=== PATIENT | male | born 1985 | race Caucasian/White ===

== ENCOUNTER 2023-03-28 07:50 | Outpatient (OUT) | payer MEDICAID, SELFPAY ==
[2023-03-28 08:57] LABS: Microalbumin Urine Random 36.3 mg/dL (<=30.0)
[2023-03-28 10:42] LABS: Albumin Level 3.6 g/dL (3.4-5.0); Anion Gap 10.9; BUN Creatinine Ratio 16.8; Calcium 9.3 mg/dL (8.5-10.1); Carbon Dioxide 26.9 mmol/L (21.0-32.0); Chloride 104 mmol/L (98-107); Chol HDL Ratio 6.1; Cholesterol 207 mg/dL (<=200); Estimated GFR (African America >60 (>=60); Estimated GFR (Non-African Ame >60 (>=60); Glucose 126 mg/dL (74-106); HDL Cholesterol 34 mg/dL (40-60); Phosphorus 3.9 mg/dL (2.6-4.7); Potassium 3.8 mmol/L (3.5-5.1); Sodium 138 mmol/L (136-145); Triglycerides 286 mg/dL (<=150); VLDL CHOLESTEROL 57.2 mg/dL
== END 2023-03-28 07:51 | disposition home or self-care (01) ==
LOC: LAB 07:54
PROVIDERS: PCP Family Medicine; Visit Provider Internal Medicine
DX: E11.65 Type 2 diabetes mellitus with hyperglycemia (principal); Z71.3 Dietary counseling and surveillance; E55.9 Vitamin D deficiency, unspecified; I10 Essential (primary) hypertension
CPT/HCPCS: 36415; 80061; 80069; 82043; 82306; 82570; 84681

== ENCOUNTER 2023-08-21 19:29 | Emergency (ER) | payer MEDICAID, SELFPAY ==
[2023-08-21 19:55] VITALS: BP 160/90; PULSE 72; RESP 18; TEMP 36.6; O2SAT 98; BMI 39.6
--- NOTE | 2023-08-21 20:34 | XR_ITS ---
The [address] [address] Patient Name: BLAKE CARDONA MRN: [id number] date: 1985 Sex: M Assigned Patient Location: ER Current Patient Location: ER Accession/Order Number: [id number] Exam Date: 08/21/2023 20:48 Report Date: 08/21/2023 21:20 At the request of: JONO PICKETT Procedure: XR foot LT min 3V EXAM: XR foot LT min 3V HISTORY: foot pain COMPARISON: None. TECHNIQUE: 3 views of the left foot FINDINGS: No acute fracture seen. Joint alignment is normal. Joint spaces are preserved. Soft tissues appear unremarkable. Posterior and plantar calcaneal spur is seen. XR/XR foot LT min 3V IMPRESSION: No acute fracture or malalignment. Electronically authenticated by: MAURIZIO CHAUDHRY Date: 08/21/2023 21:20
--- NOTE | 2023-08-21 21:33 | ED_ITS ---
HPI - General Adult General Chief complaint: Extremity Injury, Lower Stated complaint: Lower Extremity Pain Time Seen by Provider: 08/21/23 19:39 Source: patient Mode of arrival: walk-in Limitations: no limitations History of Present Illness HPI narrative: Patient is a 37-year-old male who presents to the emergency department for left foot pain. He states that has been present for several weeks although he admits he has had intermittent left foot pain for 10 years. He has never been seen by a gas controller. He has had no swelling, redness or injury to the left foot. He is currently wearing cowboy boots to ambulate. He states he came to the emergency department tonight because he is tired of it hurting . Related Data Previous Rx's Medication Instructions Recorded tramadol 50 mg tablet 50 mg PO Q4H PRN pain #15 tabs 08/21/23 Allergies Allergy/AdvReac Type Severity Reaction Status Date / Time methocarbamol [From Robaxin] Allergy Intermediate Verified 08/21/23 20:01 chlorhexidine Allergy Mild Verified 08/21/23 20:01 [From Hibiclens] Review of Systems ROS Constitutional Denies: fever or chills Ears, nose, mouth, and throat Denies: throat pain or neck pain Cardiovascular Denies: chest pain Respiratory Denies: shortness of breath or cough Gastrointestinal Denies: nausea or vomiting Musculoskeletal Denies: back pain Integumentary/Breast Denies: rash Neurological Denies: headache Psychiatric Denies: anxiety [facility] Social History Smoking status: Never smoker Exam Narrative Exam Narrative: Gen.: Awake, alert, in no distress Head: Normocephalic, atraumatic ENT: Moist mucous membranes Respiratory: No respiratory distress Extremities: Moves extremities equally, left foot is noted to have a 2+ left DP pulse. No swelling, erythema, ecchymosis or obvious deformity noted of the left foot. No bony point tenderness. Patient with no red or swollen joints. No bony tenderness of the left ankle. Left foot is diffusely tender at the first MTP joint of the plantar foot as well as the dorsum of the left fourth MTP joint. Psych: Normal mood and affect Neuro: No focal neuro deficit Skin: Warm, dry, intact Constitutional Vital Signs, click to edit/add: Last Vital Signs Temp 97.8 F 08/21/23 19:55 Pulse 72 08/21/23 19:55 Resp 18 08/21/23 19:55 BP 160/90 H 08/21/23 19:55 Pulse Ox 98 08/21/23 19:55 O2 Del Method Room Air 08/21/23 19:55 Course Vital Signs Vital signs: Vital Signs Temperature 97.8 F 08/21/23 19:55 Pulse Rate 72 08/21/23 19:55 Respiratory Rate 18 08/21/23 19:55 Blood Pressure 160/90 H 08/21/23 19:55 Pulse Oximetry 98 08/21/23 19:55 Oxygen Delivery Method Room Air 08/21/23 19:55 Temperature 97.8 F 08/21/23 19:55 Pulse Rate 72 08/21/23 19:55 Respiratory Rate 18 08/21/23 19:55 Blood Pressure 160/90 H 08/21/23 19:55 Pulse Oximetry 98 08/21/23 19:55 Oxygen Delivery Method Room Air 08/21/23 19:55 Medical Decision Making MDM Narrative Medical decision making narrative: Suspect plantar fasciitis versus improper shoes with the patient's arch. X-rays are unremarkable. Patient with no clinical findings concerning for gout or cellulitis. He has a history of kidney issues and diabetes, we will avoid NSAIDs and steroids and the patient is given tramadol for comfort at home with Bradley in the ER. He is strongly encouraged to follow-up with podiatry due to the limitations of the emergency department for further evaluation and treatment. Return to the ER if symptoms change or worsen. Medical Records Medical records reviewed: Yes I reviewed the patient's medical records Imaging Data XR foot left: Attestation: I have reviewed the pertinent imaging results. Discharge Plan Discharge Chief Complaint: Extremity Injury, Lower Clinical Impression: Acute pain of left foot Patient Disposition: Home, Self-Care Time of Disposition Decision: 21:29 Condition: Good Prescriptions / Home Meds: New tramadol 50 mg tablet 50 mg PO Q4H PRN (Reason: pain) Qty: 15 0RF Rx Instructions: DX: M79.672 Instructions: Arthralgia (ED) Stand Alone Forms: Portal Instructions Referrals: Physician,Non-Staff, MD [Primary Care Provider] - 1 week Shaq Santana DPM [Physician] - As soon as possible Discharge Date/Time: 08/21/23 21:54
[2023-08-21] MEDS: HYDROCODONE/ACET 5-325 MG TABLET 1 TAB PO (21:52)
== END 2023-08-21 21:54 | disposition home or self-care (01) ==
PROVIDERS: Emergency Provider Emergency Medicine
DX: M79.672 Pain in left foot (principal)
CPT/HCPCS: 73630; 80048; 84550; 85652; 86140; 99283

== ENCOUNTER 2023-08-28 09:51 | Outpatient (OUT) | payer MEDICAID, SELFPAY ==
--- NOTE | 2023-08-28 | XR_ITS ---
The [address] [address] Patient Name: BLAKE CARDONA MRN: [id number] date: 1985 Sex: M Assigned Patient Location: [facility] Current Patient Location: Accession/Order Number: [id number] Exam Date: 08/28/2023 10:10 Report Date: 08/29/2023 22:31 At the request of: MARIA DEL ROSARIO SANCHEZ Procedure: XR foot LT min 3V EXAM: XR foot LT min 3V HISTORY: The patient is a 38-year-old male with LEFT FOOT PAIN COMPARISON: 08/21/2023. FINDINGS: The current oblique view demonstrates a periosteal reaction arising from the lateral cortex of the distal half of the diaphysis of the third metatarsal. This has the appearance of a stress reaction. No other periosteal reactions are seen throughout the rest of the left foot. No acute or ununited fractures are seen. The widths and alignment of all the joints are maintained. XR/XR foot LT min 3V IMPRESSION: Stress reaction of the third metatarsal. Electronically authenticated by: ASHLYN PARKS Date: 08/29/2023 22:31
== END 2023-08-28 09:52 | disposition home or self-care (01) ==
LOC: RAD 09:51
PROVIDERS: Visit Provider Podiatrist Foot & Ankle Surgery
DX: M79.672 Pain in left foot (principal)
CPT/HCPCS: 73630

== ENCOUNTER 2023-09-20 08:50 | Outpatient (OUT) | payer MEDICAID, SELFPAY ==
--- NOTE | 2023-09-20 08:51 | VEIN_ITS ---
Patient Name: BLAKE CARDONA MR#: [id number] : 1985 Exam Date: 09/20/2023 Ordering Doctor: DR. MARIA DEL ROSARIO SidhuPVijay RADIOLOGY REPORT PROCEDURE: [facility] - OFFICE VISIT INITIAL COMPARISON: None. PROGRESS NOTES: 38-year-old female who presents with 10 year history of lower extremity pain swelling and varicose veins, significantly increasing last several years. Patient's symptoms are worse on the right. 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 The patient's symptoms are partially relieved by rest, leg elevation, the counter oral analgesics and compression stockings which she has worn for many years. The patient's rib for by Dr. Santana where he was seen for foot pain and arthritis. The patient denies any signs and symptoms to suggest arterial ischemia. The patient has had 2 episodes of hemorrhage related to varicose veins close to the skin surface. He was able to obtain hemostasis with manual pressure during both episodes with some difficulty. The patient describes a family history significant for cancer in his father. Type 2 diabetes and heart disease in his mother. Patient occasionally uses social alcohol. The patient has never smoked. No illicit drug use. Medical history significant for type 2 diabetes, hypertension, varicose veins and 3rd degree treadwell as a child. Past surgery for appendectomy and skin grafts. No history of deep venous thrombus or pulmonary embolus. See separate history and physical for medication list. Nursing notes were reviewed. After history and physical exam I discussed at length the pathophysiology of venous hypertension and possible treatments, therapies and strategies available. We discussed at length the importance of elevating the lower extremities above the level of the heart, increased physical activity and compression stocking use. We discussed surgical interventions including ligation and stripping and phlebectomy. We discussed conservative treatment with compression stockings. We discussed intravenous laser ablation, micro foam chemical ablation and injection sclerotherapy at length. Risks benefits and alternatives were discussed. The patient's questions were answered. Ultrasound venous reflux study performed the same day was discussed at length with the patient. The report demonstrates moderate bilateral great saphenous vein venous insufficiency. Moderate right anterior accessory saphenous vein venous insufficiency. Mild left small saphenous vein venous insufficiency. Bilateral incompetent perforating veins. Bilateral incompetent varicose veins PHYSICAL EXAM: The right leg demonstrates severe varicose reticular and spider veins. Two areas of scabbing are noted along the medial left ankle related to his hemorrhagic veins. Mild to moderate hemosiderin staining. The left leg demonstrates moderate varicose, reticular and spider veins. Mild to moderate hemosiderin staining. No active ulceration. Both thighs, legs and feet were symmetrically warm to the touch. Good posterior tibial and dorsalis pedis pulses were present bilaterally. VEIN/VC Facility EST Comprehensive IMPRESSION: 1. Bilateral great saphenous and right anterior accessory saphenous vein venous insufficiency with dilatation and saphenofemoral junction reflux 2. Severe right and moderate left lower extremity incompetent varicose veins 3. Mild lower extremity subcutaneous edema 4. And flow significant arterial disease 5. CEAP: C4a, Ep, Asp, Pr PLAN: 1. Endovenous laser ablation right great saphenous vein followed by left great saphenous vein followed by right anterior accessory saphenous vein 2. Bilateral micro foam chemical ablation of incompetent varicose veins 3. Injection sclerotherapy of reticular and spider veins 4. Long-term use of bilateral knee or thigh-high 20 30 mm compression stockings 5. Continued exercise for symptomatic control Nurse notes, history and physical were reviewed and confirmed, see attached forms. The nurse was present throughout the physical exam and consultation Dictated by: Patrick Gresham MD on 09/20/2023 at 13:09 Approved by: Patrick Gresham MD on 09/20/2023 at 13:15
--- NOTE | 2023-09-20 08:51 | VEIN_ITS ---
Patient Name: BLAKE CARDONA MR#: [id number] : 1985 Exam Date: 09/20/2023 Ordering Doctor: DR. MARIA DEL ROSARIO SidhuPVijay RADIOLOGY REPORT PROCEDURE: VC EXT VENOUS REFLUX JONATHON LMTD COMPARISON: None. INDICATIONS: I83.813 Bilateral painful varicose veins TECHNIQUE: Duplex imaging of the lower extremity to assess the deep and superficial venous system for the presence of deep or superficial venous incompetence and to document the location and severity of disease. The study includes evaluation of the great saphenous vein (GSV), anterior accessory saphenous vein (AASV) and small saphenous vein (SSV). Patient scanned in reverse Trendelenburg and standing. FINDINGS: RIGHT LOWER EXTREMITY: Saphenofemoral Junction Reflux: Yes 9.9mm 2.8 sec GSV: Diam (mm) Reflux/ Time (sec) Proximal Thigh 6.7 Yes 1.8 Mid Thigh 3.5 Yes 2.3 Distal Thigh 4.4 Yes 1.2 Prox Calf 2.4 Yes 1.1 Mid Calf 5.2 Yes 0.6 Saphenopopliteal Junction Reflux: 1.1mm N/A SSV: Proximal Calf 0.9 Mid Calf 1.3 AASV: Proximal Thigh 8.3 Yes 1.8 Mid Thigh 6.1 Yes 1.4 Distal Thigh Thrombi: No acute or chronic thrombus visualized Compressibility: Normal Flow: Normal Preforator: Dist/med calf 3.7mm with 0.6s reflux. Mid/med calf 3.1mm with 1.1s reflux. Tech Note: Incompetent GSV and AASV. Patent varicose vein prox/med calf 5.6mm with 1.0s reflux. Patent varicose vein dist/med calf 6.7mm with 1.5s reflux. Patent varicose vein mid/med thigh 11.6mm with 2.2s reflux. LEFT LOWER EXTREMITY: Saphenofemoral Junction Reflux: Yes 11.6 mm 1.8 sec GSV: Diam (mm) Reflux/Time (sec) Proximal Thigh 8.3 Yes 1.2 Mid Thigh 5.7 Yes 2.2 Distal Thigh 5.2 Yes 0.9 Prox Calf 3.3 Yes 0.8 Mid Calf 2.0 No Saphenopopliteal Junction Relux: 2.4 mm No SSV: Proximal Calf 2.0 Yes 0.7 Mid Calf 1.6 No AASV: Not present Thrombi: No acute or chronic thrombus visualized Compressibility: Normal Flow: Normal Resume Writer: Dist/med calf 4.5mm with 1.2s reflux. Tech Note: Incompetent GSV. Patent varicose vein mid/med calf 3.1mm with 0.8s reflux. Patent varicose vein mid/med thigh 3.1mm with 0s reflux. Patent varicose vein prox/med thigh 4.6mm with 2.1s reflux. CONCLUSION: 1. Moderate bilateral great saphenous vein venous insufficiency with dilatation and saphenofemoral junction reflux 2. Moderate right anterior accessory saphenous vein venous insufficiency 3. Mild venous insufficiency left small saphenous vein without dilatation 4. Bilateral incompetent varicose veins 5. Bilateral incompetent perforating veins Dictated by: Patrick Gresham MD on 09/20/2023 at 09:56 Approved by: Patrick Gresham MD on 09/20/2023 at 09:57
--- OUTSIDE RECORDS SUMMARY | 2023-09-20 09:10 | XMS_ITS | CCD ---
Author Name Unknown Address [address] [place] [address] Organization [facility] Care Team Providers Care Consulting Solution Manager Name Role Phone HOUSE, DR SKAGGS Primary Care Unavailable GABI WEBB Attending Unavailable GABI WEBB Consulting Unavailable GABI WEBB Admitting Unavailable Allergies Allergy Classification Reported Allergen(s) Allergy Type Date of Onset Reaction(s) Facility (1 source) Chlorhexidine Drug Allergy [facility] (1 source) Methocarbamol Drug Allergy [facility] [place] [facility] Problems Problem Classification Problem Date Documented Da te Episodic/Chronic Diabetes mellitus with complications (4 sources) Type 2 diabetes mellitus with hyperglycemia; Translations: [TYPE 2 DM W/HYPERGLYCEMIA] Onset: 10-01-2022 Chronic Essential hypertension (1 source) Essential (primary) hypertension; Translations: [ESSENTIAL PRIMARY HYPERTENSION] Onset: 11-05-2022 Chronic Nutritional deficiencies (1 source) Vitamin D deficiency, unspecified; Translations: [VITAMIN D DEFICIENCY UNSPECIFIED] Onset: 11-05-2022 Chronic Results Test Name Value Interpretation Reference Range Facil ity C-PEPTIDE, SERUMon 3 C-Peptide, Serum 3.6 ng/mL Normal 1.1-4.[address] [facility] Comment on above: Result Comment: C-Pe ptide reference interval is for fasting patients. Performed By: #### C PEPT #### [facility] [address] [place], [place] [address] Dr. Fátima Keller DIRECT LDLon 10-01-2022 Cholesterol in LDL [Mass/Vol] 98 mg/dL Normal [facility] [place] [facility] Comment on above: Performed By: #### L IPID, DLDL, TSH, RENAL #### [facility] [address] [place], [place] [address] Dr. Fátima Keller DLDL NORMAL SEE BELOW Normal [facility] [place] [facility] Comment on above: Result Comment: <100 mg/dl OPTIMAL 100 - 129 mg/dl NEAR OR ABOVE OPTIMAL 130 - 159 mg/dl BORDERLINE HIGH 160 - 189 mg/dl HIGH >190 mg/dl VERY HIGH Performed By: #### L IPID, DLDL, TSH, RENAL #### [facility] [address] [place] [address] [address] Fátima Keller LIPID PROFILEon 10-01-2022 CHOL-HDL RATIO NORM SEE BELOW Normal [facility] Comment on above: Result Comment: 3.3 - 4.4 LOW RISK 4.4 - 7.1 AVERAGE RISK 7.1 - 11.0 MODERATE RISK >11.0 HIGH RISK Performed By: #### L IPID, DLDL, TSH, RENAL #### [facility] [address] [place] [address] [address] Fátima Keller Cholesterol [Mass/Vol] 320 mg/dL Critically high <=200 [facility] Comment on above: Performed By: #### L IPID, DLDL, TSH, RENAL #### [facility] [address] [place] [address] [address] Fátima Keller Cholesterol in HDL [Mass/Vol] 38 mg/dL Critically low 40-60 [facility] Comment on above: Performed By: #### L IPID, DLDL, TSH, RENAL #### [facility] [address] [place] [address] [address] Fátima Keller Cholesterol in LDL [Mass/Vol] 51.8 mg/dL Normal [facility] Comment on above: Performed By: #### L IPID, DLDL, TSH, RENAL #### [facility] [address] [place] [address] [address] Fátima Keller Cholesterol.total/ Cholesterol in HDL [Mass ratio] 8.4 {ratio} Normal [facility] Comment on above: Performed By: #### L IPID, DLDL, TSH, RENAL #### [facility] [address] [place] [address] [address] Fátima Keller HDL NORMAL > or = 60 mg/dl - LO W CARDIOVASCULAR RISK <40 mg/dl - HIGH CARDIOVASCULAR RISK Normal [facility] Comment on above: Performed By: #### L IPID, DLDL, TSH, RENAL #### [facility] [address] [place] [address] [address] Fátima Keller LDL CALC NORMAL SEE BELOW Normal [facility] Comment on above: Result Comment: <100 mg/dl OPTIMAL 100 - 129 mg/dl NEAR OR ABOVE OPTIMAL 130 - 159 mg/dl BORDERLINE HIGH 160 - 189 mg/dl HIGH >190 mg/dl VERY HIGH Performed By: #### L IPID, DLDL, TSH, RENAL #### [facility] [address] [place] [address] [address] Fátima Keller Triglyceride [Mass/Vol] 1151 mg/dL Critically high <=150 [facility] Comment on above: Performed By: #### L IPID, DLDL, TSH, RENAL #### [facility] [address] [place] [address] Dr. Fátima Keller VLDL CALC 230.2 mg/dL Normal [facility] [place] [facility] Comment on above: Performed By: #### L IPID, DLDL, TSH, RENAL #### [facility] [address] [place] [address] Dr. Fátima Keller MICROALB CREAT RATIO RANDOMo n 10-01-2022 mALB 32.2 mg/L Critically high <=30.0 [facility] Comment on above: Performed By: #### M CRR #### [facility] [address] [place] [address] Dr. Fátima Keller MALB CR RATIO 794.5 mg/g Critically high 0.0-29.9 [facility] Comment on above: Performed By: #### M CRR #### [facility] [address] [place] [address] [address] Fátima Keller MALB CR RATIO RANGE SEE BELOW Normal [facility] Comment on above: Result Comment: NO M ICROALBUMINURIA 0-29 MG/G CLINICAL MICROALBUMINURIA 30-300 MG/G MACROALBUMINURIA >300 MG/G Performed By: #### M CRR #### [facility] [address] [place] [address] [address] Fátima Keller URINE CREAT 40.53 mg/dL Normal 20.00-300.00 [facility] Comment on above: Performed By: #### M CRR #### [facility] [address] [place] [address] [address] Fátima Keller RENAL FUNCTION PANELon 10-01 Albumin [Mass/Vol] 3.2 g/dL Critically low 3.4-5.0 Th [facility] Comment on above: Performed By: #### L IPID, DLDL, TSH, RENAL #### [facility] [address] [place] [address] [address] Fátima Keller Calcium [Mass/Vol] 9.5 mg/dL Normal 8.5-10.1 [facility] Comment on above: Performed By: #### L IPID, DLDL, TSH, RENAL #### [facility] [address] [place] [address] Dr. Fátima Keller Chloride [Moles/Vol] 99 mmol/L Normal 98-107 [facility] Comment on above: Performed By: #### L IPID, DLDL, TSH, RENAL #### [facility] [address] [place] [address] [address] Fátima Keller CO2 [Moles/Vol] 24.6 mmol/L Normal 21.0-32.0 [facility] [place] [facility] Comment on above: Performed By: #### L IPID, DLDL, TSH, RENAL #### [facility] [address] [place] [address] Dr. Fátima Keller Creatinine [Mass/Vol] 0.86 mg/dL Normal 0.70-1.30 [facility] Comment on above: Performed By: #### L IPID, DLDL, TSH, RENAL #### [facility] [address] [place] [address] [address] Fátima Keller EGFR-AF ALGERIAN >60 Normal >=[address] [facility] Comment on above: Performed By: #### L IPID, DLDL, TSH, RENAL #### [facility] [address] [place] [address] [address] Fátima Keller EGFR-NON AF ALGERIAN >60 Normal >=60 [facility] Comment on above: Performed By: #### L IPID, DLDL, TSH, RENAL #### [facility] [address] [place] [address] Dr. Fátima Keller Glucose [Mass/Vol] 222 mg/dL Critically high 74-[address] [facility] Comment on above: Performed By: #### L IPID, DLDL, TSH, RENAL #### [facility] [address] [place] [address] Dr. Fátima Keller Phosphate [Mass/Vol] 4.2 mg/dL Normal 2.6-4.7 [facility] Comment on above: Performed By: #### L IPID, DLDL, TSH, RENAL #### [facility] [address] [place] [address] Dr. Fátima Keller Potassium [Moles/Vol] 4.0 mmol/L Normal 3.5-5.1 [facility] Comment on above: Performed By: #### L IPID, DLDL, TSH, RENAL #### [facility] [address] [place] [address] Dr. Fátima Keller Sodium [Moles/Vol] 135 mmol/L Critically low 136-145 [facility] Comment on above: Performed By: #### L IPID, DLDL, TSH, RENAL #### [facility] [address] [place] [address] Dr. Fátima Keller Urea nitrogen [Mass/Vol] 22.0 mg/dL Critically high 7.0-18.0 [facility] Comment on above: Performed By: #### L IPID, DLDL, TSH, RENAL #### [facility] [address] [place] [address] Dr. Fátima Keller TSHon 10-01-2022 TSH 1.680 uIU/mL Normal 0.358-3.740 [facility] Comment on above: Performed By: #### L IPID, DLDL, TSH, RENAL #### [facility] [address] [place] [address] Dr. Fátima Keller VITAMIN D 25 OHon 10-01-2022 VIT D 25-OH 8.3 ng/mL Normal [facility] Comment on above: Performed By: #### V ITAD #### [facility] [address] [place], [place] [address] Dr[address] Fátima Keller VIT D RANGES SEE BELOW Normal [facility] Comment on above: Result Comment: <20 ng/mL Vit D deficient 20 - <30 ng/mL Vit D insufficient 30 - 100 ng/mL Vit D sufficient >100 ng/mL Potential Toxicity Performed By: #### V ITAD #### [facility] [address] [place], [place] [address] Dr. Fátima Keller Encounters Encounter Date Encounter Type Care Provider Facility Start: 10-01-2022 End: 10-02-[address] GILES RUIZ Facility: Payers Date Payer Category Payer Unknown [id number] 1957 Unknown [id number] Summary Purpose Family History No Family History Records Found Advance Directives No Advanced Directives Records Found Additional Source Comments (unrecognized sect ion and content) No Status Records Found INFORMATION SOURCE (unrecogn ized section and content) DATE CREATED AUTHOR 11/13/2022 [facility] FOR RECORDS PERTAINING TO PATIENTS WHO ARE OR HAVE BEEN ENROLLED IN A CHEMICAL DEPENDENCY/SUBSTANCEABUSE PROGRAM, SOME INFORMATION MAY BE OMITTED. This clinical summary was aggregated from multiple sources. Caution should be exercised in using it in the provision of clinical care. This summary normalizes information from multiple sources, and as a consequence, information in this document may materially change the coding, format and clinical context of patient data. In addition, data may be omitted in some cases. CLINICAL DECISIONS SHOULD BE BASED ON THE PRIMARY CLINICAL RECORDS. [facility]. provides no warranty or guarantee of the accuracy or completeness of information in this document.
== END 2023-09-20 08:51 | disposition home or self-care (01) ==
LOC: VC 08:50
PROVIDERS: PCP Podiatrist Foot & Ankle Surgery; Visit Provider Podiatrist Foot & Ankle Surgery
DX: I83.813 Varicose veins of bilateral lower extremities with pain (principal); R60.0 Localized edema
CPT/HCPCS: 93970; G0463

== ENCOUNTER 2023-09-23 08:26 | Outpatient (OUT) | payer MEDICAID, SELFPAY ==
--- OUTSIDE RECORDS SUMMARY | 2023-09-23 08:28 | XMS_ITS | CCD ---
Author Name Unknown Address [address] [place] [address] Organization [facility] Care Team Providers Care Guest Experience Specialist Name Role Phone HOUSE, DR SKAGGS Primary Care Unavailable GABI WEBB Attending Unavailable GABI WEBB Consulting Unavailable GABI WEBB Admitting Unavailable Allergies Allergy Classification Reported Allergen(s) Allergy Type Date of Onset Reaction(s) Facility (1 source) Chlorhexidine Drug Allergy [facility] (1 source) Methocarbamol Drug Allergy [facility] Problems Problem Classification Problem Date Documented [...] C-Peptide, Serum 3.6 ng/mL Normal 1.1-4.4 [facility] Comment on above: Result Comment: C-Pe ptide reference interval is for fasting patients. Performed By: #### C PEPT #### [facility] [address] [place], [place] [address] Dr. Fátima Keller DIRECT LDLon 10-01-2022 Cholesterol in LDL [Mass/Vol] 98 mg/dL Normal [facility] Comment on above: Performed By: #### L IPID, DLDL, TSH, RENAL #### [facility] [address] [place], [place] [address] Dr. Fátima Keller DLDL NORMAL SEE BELOW Normal [facility] Comment on above: Result Comment: <100 mg/dl OPTIMAL 100 - 129 mg/dl NEAR OR ABOVE OPTIMAL 130 - 159 mg/dl BORDERLINE HIGH 160 - 189 mg/dl HIGH >190 mg/dl VERY HIGH Performed By: #### L IPID, DLDL, TSH, RENAL #### [facility] [address] [place] [address] [address] Fátima Keller LIPID PROFILEon 10-01-2022 CHOL-HDL RATIO NORM SEE BELOW Normal [facility] Comment on above: Result Comment: 3.3 - 4.4 LOW RISK 4.4 - 7.1 AVERAGE RISK 7.1 - 11.0 MODERATE RISK >11.0 HIGH RISK Performed By: #### L IPID, DLDL, TSH, RENAL #### [facility] [address] [place] [address] [address] Fátima Keller Cholesterol [Mass/Vol] 320 mg/dL Critically high <=200 [facility] Comment on above: Performed By: #### L IPID, DLDL, TSH, RENAL #### [facility] [address] [place] [address] [address] Fátima Keller Cholesterol in HDL [Mass/Vol] 38 mg/dL Critically low 40-60 [facility] Comment on above: Performed By: #### L IPID, DLDL, TSH, RENAL #### [facility] [address] [place] [address] [address] Fátima Keller Cholesterol in LDL [Mass/Vol] 51.8 mg/dL Normal [facility] Comment on above: Performed By: #### L IPID, DLDL, TSH, RENAL #### [facility] [address] [place] [address] [address] Fátima Keller Cholesterol.total/ Cholesterol in HDL [Mass ratio] 8.4 {ratio} Normal [facility] Comment on above: Performed By: #### L IPID, DLDL, TSH, RENAL #### [facility] [address] [place] [address] [address] Fátima Keller HDL NORMAL > or = 60 mg/dl - LO W CARDIOVASCULAR RISK <40 mg/dl - HIGH CARDIOVASCULAR RISK Normal [facility] Comment on above: Performed By: #### L IPID, DLDL, TSH, RENAL #### [facility] [address] [place] [address] [address] Fátima Keller LDL CALC NORMAL SEE BELOW Normal [facility] Comment on above: Result Comment: <100 mg/dl OPTIMAL 100 - 129 mg/dl NEAR OR ABOVE OPTIMAL 130 - 159 mg/dl BORDERLINE HIGH 160 - 189 mg/dl HIGH >190 mg/dl VERY HIGH Performed By: #### L IPID, DLDL, TSH, RENAL #### [facility] [address] [place] [address] [address] Fátima Keller Triglyceride [Mass/Vol] 1151 mg/dL Critically high <=150 [facility] Comment on above: Performed By: #### L IPID, DLDL, TSH, RENAL #### [facility] [address] [place] [address] Dr. Fátima Keller VLDL CALC 230.2 mg/dL Normal [facility] Comment on above: Performed By: #### L IPID, DLDL, TSH, RENAL #### [facility] [address] [place] [address] Dr. Fátima Keller MICROALB CREAT RATIO RANDOMo n 10-01-2022 mALB 32.2 mg/L Critically high <=30.0 The [facility] Comment on above: Performed By: #### M CRR #### [facility] [address] [place] [address] Dr. Fátima Keller MALB CR RATIO 794.5 mg/g Critically high 0.0-29.9 [facility] Comment on above: Performed By: #### M CRR #### [facility] [address] [place] [address] [address] Fátima Keller MALB CR RATIO RANGE SEE BELOW Normal [facility] Comment on above: Result Comment: NO M ICROALBUMINURIA 0-29 MG/G CLINICAL MICROALBUMINURIA 30-300 MG/G MACROALBUMINURIA >300 MG/G Performed By: #### M CRR #### [facility] [address] [place] [address] [address] Fátima Keller URINE CREAT 40.53 mg/dL Normal 20.00-300.00 [facility] Comment on above: Performed By: #### M CRR #### [facility] [address] [place] [address] [address] Fátima Keller RENAL FUNCTION PANELon 10-01 Albumin [Mass/Vol] 3.2 g/dL Critically low 3.4-5.0 [facility] Comment on above: Performed By: #### L IPID, DLDL, TSH, RENAL #### [facility] [address] [place] [address] [address] Fátima Keller Calcium [Mass/Vol] 9.5 mg/dL Normal 8.5-10.1 [facility] Comment on above: Performed By: #### L IPID, DLDL, TSH, RENAL #### [facility] [address] [place] [address] Dr. Fátima Keller Chloride [Moles/Vol] 99 mmol/L Normal 98-107 [facility] Comment on above: Performed By: #### L IPID, DLDL, TSH, RENAL #### [facility] [address] [place] [address] [address] Fátima Keller CO2 [Moles/Vol] 24.6 mmol/L Normal 21.0-32.0 [facility] Comment on above: Performed By: #### L IPID, DLDL, TSH, RENAL #### [facility] [address] [place] [address] Dr. Fátima Keller Creatinine [Mass/Vol] 0.86 mg/dL Normal 0.70-1.30 [facility] Comment on above: Performed By: #### L IPID, DLDL, TSH, RENAL #### [facility] [address] [place] [address] [address] Fátima Keller EGFR-AF EQUATORIAL GUINEAN >60 Normal >=60 [facility] Comment on above: Performed By: #### L IPID, DLDL, TSH, RENAL #### [facility] [address] [place] [address] [address] Fátima Keller EGFR-NON AF EQUATORIAL GUINEAN >60 Normal >=60 [facility] Comment on above: Performed By: #### L IPID, DLDL, TSH, RENAL #### [facility] [address] [place] [address] Dr. Fátima Kelelr Glucose [Mass/Vol] 222 mg/dL Critically high 74-106 T [facility] Comment on above: Performed By: #### L IPID, DLDL, TSH, RENAL #### [facility] [address] [place] [address] Dr. Fátima Keller Phosphate [Mass/Vol] 4.2 mg/dL Normal 2.6-4.7 [facility] Comment on above: Performed By: #### L IPID, DLDL, TSH, RENAL #### [facility] [address] [place] [address] Dr. Fátima Keller Potassium [Moles/Vol] 4.0 mmol/L Normal 3.5-5.1 [facility] Comment on above: Performed By: #### L IPID, DLDL, TSH, RENAL #### [facility] [address] [place] [address] Dr. Fátima Keller Sodium [Moles/Vol] 135 mmol/L Critically low 136-145 [facility] Comment on above: Performed By: #### L IPID, DLDL, TSH, RENAL #### [facility] [address] [place] [address] Dr. Fátima Keller Urea nitrogen [Mass/Vol] 22.0 mg/dL Critically high 7.0-18.0 [facility] Comment on above: Performed By: #### L IPID, DLDL, TSH, RENAL #### [facility] [address] [place] [address] Dr. Fátima Keller TSHon 10-01-2022 TSH 1.680 uIU/mL Normal 0.358-3.[address] [facility] Comment on above: Performed By: #### L IPID, DLDL, TSH, RENAL #### [facility] [address] [place] [address] Dr. Fátima Keller VITAMIN D 25 OHon 10-01-2022 VIT D 25-OH 8.3 ng/mL Normal [facility] Comment on above: Performed By: #### V ITAD #### [facility] [address] [place], [place] [address] Dr. Fátima Keller VIT D RANGES SEE BELOW Normal [facility] Comment on above: Result Comment: <20 ng/mL Vit D deficient 20 - <30 ng/mL Vit D insufficient 30 - 100 ng/mL Vit D sufficient >100 ng/mL Potential Toxicity Performed By: #### V ITAD #### [facility] [address] [place], [place] [address] Dr. Fátima Keller Encounters Encounter Date Encounter Type Care Provider Facility Start: 10-01-2022 End: 10-02-[address] GILES RUIZ Facility: Payers Date Payer Category Payer Unknown [id number] 1957 Unknown [id number] Summary Purpose Family History No Family History Records Found Advance Directives No Advanced Directives Records Found Additional Source Comments (unrecognized sect ion and content) No Status Records Found INFORMATION SOURCE (unrecogn ized section and content) DATE CREATED AUTHOR 11/13/2022 [facility] FOR RECORDS PERTAINING TO PATIENTS WHO [...] BE BASED ON THE PRIMARY CLINICAL RECORDS. [email or web address] [facility]. provides no warranty or guarantee of the accuracy or completeness of information in this document.
--- NOTE | 2023-09-23 08:30 | CT_ITS ---
The [address] [address] Patient Name: BLAKE CARDONA MRN: [id number] date: 1985 Sex: M Assigned Patient Location: CT Current Patient Location: CT Accession/Order Number: [id number] Exam Date: 09/23/2023 08:38 Report Date: 09/23/2023 09:16 At the request of: MARIA DEL ROSARIO SANCHEZ Procedure: CT foot LT wo con EXAMINATION: CT foot LT wo con HISTORY: Degenerative joint disease midfoot, cyst talus COMPARISON: No relevant comparison available. TECHNIQUE: Multi-planar CT images were created without IV contrast. Dose reduction techniques were achieved by using automated exposure control and/or adjustment of mA and/or kV according to patient size and/or use of iterative reconstruction technique. FINDINGS: BONES: No acute fracture or dislocation. Mild to moderate diffuse degenerative change with joint space narrowing and marginal osteophyte formation most significant at the talonavicular joint and talocalcaneal joints. Subchondral cystic changes involving up to 9.8 mm of the posterior talus along the posterior talocalcaneal joint. Moderate enthesopathic spurring of the calcaneus at the Achilles and plantar insertions SOFT TISSUES: Negative. No visible soft tissue swelling. EFFUSION: None visible. OTHER: Negative. CT/CT foot LT wo con IMPRESSION: Mild to moderate diffuse degenerative changes Subchondral cystic changes of the posterior talus along the posterior talocalcanealr joint Electronically authenticated by: ILANA GUTIERRES Date: 09/23/2023 09:16
--- NOTE | 2023-09-23 10:30 | CA_ITS ---
The [facility] Test Date: 2023-09-23 Pat Name: BLAKE CARDONA Department: Room: - Gender: Male Supervisor [employer]: Josefina Fisher : 1985 Requested By: MARIA DEL ROSARIO SANHCEZ Order Number: [id number] Reading MD: FRANC ONEAL Interpretive Statements Biphasic doppler waveforms PVR waveforms with normal upstroke, amplitude and dicrotic notch Right: - no significant pressure gradient between cuffs - normal JESUS ALBERTO Left: - signficant pressure gradient between the calf and DP cuff - normal JESUS ALBERTO Impression: - elevated indices (B/L thigh, B/L calf) consistent with calcified, noncompressible arterial sharma, which may underestimate the degree of arterial disease present. - normal arterial evaluation of the lower extremities without hemodynamic impairment of the B/L lower extremities at rest (right Jesus Alberto 1.15, left JESUS ALBERTO 1.12) Electronically Signed On 09-24-2023 7:18:04 EST by FRANC ONEAL
== END 2023-09-23 08:27 | disposition home or self-care (01) ==
LOC: CT 08:26
PROVIDERS: PCP Podiatrist Foot & Ankle Surgery; Visit Provider Podiatrist Foot & Ankle Surgery
DX: M19.072 Primary osteoarthritis, left ankle and foot (principal); R09.89 Other specified symptoms and signs involving the circulatory and respiratory systems
CPT/HCPCS: 73700; 93923

== ENCOUNTER 2023-10-11 07:58 | Outpatient (OUT) | payer MEDICAID, SELFPAY ==
--- OUTSIDE RECORDS SUMMARY | 2023-10-11 08:00 | XMS_ITS | CCD ---
Author Name Unknown Address [address] [place] [address] Organization [facility] Care Team Providers Care Electric Solderer Name Role Phone HOUSE, DR SKAGGS Primary Care Unavailable GABI WEBB Attending Unavailable GABI WEBB Consulting Unavailable GABI WEBB Admitting Unavailable Allergies Allergy Classification Reported Allergen(s) Allergy Type Date of Onset Reaction(s) Facility (1 source) Chlorhexidine Drug Allergy [facility] (1 source) Methocarbamol Drug Allergy [facility] Problems Problem Classification Problem Date [...] C-Peptide, Serum 3.6 ng/mL Normal 1.1-4.4 [facility] Comment on above: Result Comment: C-Pe ptide reference interval is for fasting patients. Performed By: #### C PEPT #### [facility] [address] [place], [place] [address] Dr. Fátima Keller DIRECT LDLon 10-01-2022 Cholesterol in LDL [Mass/Vol] 98 mg/dL Normal [facility] Comment on above: Performed By: #### L IPID, DLDL, TSH, RENAL #### [facility] [address] [place], [place] [address] Dr. Fátima Keller DLDL NORMAL SEE BELOW Normal [facility] Comment on above: Result Comment: <100 mg/dl OPTIMAL 100 - 129 mg/dl NEAR OR ABOVE OPTIMAL 130 - 159 mg/dl BORDERLINE HIGH 160 - 189 mg/dl HIGH >190 mg/dl VERY HIGH Performed By: #### L IPID, DLDL, TSH, RENAL #### [facility] [address] [place] [address] [address] Fátima Keller LIPID PROFILEon 10-01-2022 CHOL-HDL RATIO NORM SEE BELOW Normal [facility] Comment on above: Result Comment: 3.3 - 4.4 LOW RISK 4.4 - 7.1 AVERAGE RISK 7.1 - 11.0 MODERATE RISK >11.0 HIGH RISK Performed By: #### L IPID, DLDL, TSH, RENAL #### [facility] [address] [place] [address] [address] Fátima Keller Cholesterol [Mass/Vol] 320 mg/dL Critically high <=200 [facility] Comment on above: Performed By: #### L IPID, DLDL, TSH, RENAL #### [facility] [address] [place] [address] [address] Fátima Keller Cholesterol in HDL [Mass/Vol] 38 mg/dL Critically low 40-60 [facility] Comment on above: Performed By: #### L IPID, DLDL, TSH, RENAL #### [facility] [address] [place] [address] [address] Fátima Keller Cholesterol in LDL [Mass/Vol] 51.8 mg/dL Normal [facility] Comment on above: Performed By: #### L IPID, DLDL, TSH, RENAL #### [facility] [address] [place] [address] [address] Fátima Keller Cholesterol.total/ Cholesterol in HDL [Mass ratio] 8.4 {ratio} Normal [facility] Comment on above: Performed By: #### L IPID, DLDL, TSH, RENAL #### [facility] [address] [place] [address] [address] Fátima Keller HDL NORMAL > or = 60 mg/dl - LO W CARDIOVASCULAR RISK <40 mg/dl - HIGH CARDIOVASCULAR RISK Normal [facility] Comment on above: Performed By: #### L IPID, DLDL, TSH, RENAL #### [facility] [address] [place] [address] [address] Fátima Keller LDL CALC NORMAL SEE BELOW Normal [facility] Comment on above: Result Comment: <100 mg/dl OPTIMAL 100 - 129 mg/dl NEAR OR ABOVE OPTIMAL 130 - 159 mg/dl BORDERLINE HIGH 160 - 189 mg/dl HIGH >190 mg/dl VERY HIGH Performed By: #### L IPID, DLDL, TSH, RENAL #### [facility] [address] [place] [address] [address] Fátima Keller Triglyceride [Mass/Vol] 1151 mg/dL Critically high <=150 [facility] Comment on above: Performed By: #### L IPID, DLDL, TSH, RENAL #### [facility] [address] [place] [address] Dr. Fátima Keller VLDL CALC 230.2 mg/dL Normal [facility] Comment on above: Performed By: #### L IPID, DLDL, TSH, RENAL #### [facility] [address] [place] [address] Dr. Fátima Keller MICROALB CREAT RATIO RANDOMo n 10-01-2022 mALB 32.2 mg/L Critically high <=30.0 [facility] Comment on above: Performed By: #### M CRR #### [facility] [address] [place] [address] Dr. Fátima Keller MALB CR RATIO 794.5 mg/g Critically high 0.0-29.9 [facility] Comment on above: Performed By: #### M CRR #### [facility] [address] [place] [address] [address] Fátima Keller MALB CR RATIO RANGE SEE BELOW Normal [facility] Comment on above: Result Comment: NO M ICROALBUMINURIA 0-29 MG/G CLINICAL MICROALBUMINURIA 30-300 MG/G MACROALBUMINURIA >300 MG/G Performed By: #### M CRR #### [facility] [address] [place] [address] [address] Fátima Keller URINE CREAT 40.53 mg/dL Normal 20.00-300.00 [facility] Comment on above: Performed By: #### M CRR #### [facility] [address] [place] [address] [address] Fátima Keller RENAL FUNCTION PANELon 10-01 Albumin [Mass/Vol] 3.2 g/dL Critically low 3.4-5.[address] [facility] Comment on above: Performed By: #### L IPID, DLDL, TSH, RENAL #### [facility] [address] [place] [address] [address] Fátima Keller Calcium [Mass/Vol] 9.5 mg/dL Normal 8.5-10.1 [facility] Comment on above: Performed By: #### L IPID, DLDL, TSH, RENAL #### [facility] [address] [place] [address] Dr. Fátima Keller Chloride [Moles/Vol] 99 mmol/L Normal 98-107 [facility] Comment on above: Performed By: #### L IPID, DLDL, TSH, RENAL #### [facility] [address] [place] [address] [address] Fátima Keller CO2 [Moles/Vol] 24.6 mmol/L Normal 21.0-32.0 [facility] Comment on above: Performed By: #### L IPID, DLDL, TSH, RENAL #### [facility] [address] [place] [address] Dr. Fátima Keller Creatinine [Mass/Vol] 0.86 mg/dL Normal 0.70-1.30 [facility] Comment on above: Performed By: #### L IPID, DLDL, TSH, RENAL #### [facility] [address] [place] [address] [address] Fátima Keller EGFR-AF MICRONESIAN >60 Normal >=60 [facility] Comment on above: Performed By: #### L IPID, DLDL, TSH, RENAL #### [facility] [address] [place] [address] [address] Fátima Keller EGFR-NON AF MICRONESIAN >60 Normal >=60 [facility] Comment on above: Performed By: #### L IPID, DLDL, TSH, RENAL #### [facility] [address] [place] [address] Dr. Fátima Keller Glucose [Mass/Vol] 222 mg/dL Critically high 74-106 T [facility] Comment on above: Performed By: #### L IPID, DLDL, TSH, RENAL #### [facility] [address] [place] [address] Dr. Fátima Keller Phosphate [Mass/Vol] 4.2 mg/dL Normal 2.6-4.7 [facility] Comment on above: Performed By: #### L IPID, DLDL, TSH, RENAL #### [facility] [address] [place] [address] Dr. Fátima Keller Potassium [Moles/Vol] 4.0 mmol/L Normal 3.5-5.1 [facility] Comment on above: Performed By: #### L IPID, DLDL, TSH, RENAL #### [facility] [address] [place] [address] Dr. Fátima Keller Sodium [Moles/Vol] 135 mmol/L Critically low 136-145 [facility] Comment on above: Performed By: #### L IPID, DLDL, TSH, RENAL #### [facility] [address] [place] [address] Dr. Fátima Keller Urea nitrogen [Mass/Vol] 22.0 mg/dL Critically high 7.0-18.0 [facility] Comment on above: Performed By: #### L IPID, DLDL, TSH, RENAL #### [facility] [address] [place] [address] Dr. Fátima Keller TSHon 10-01-2022 TSH 1.680 uIU/mL Normal 0.358-3.740 [facility] Comment on above: Performed By: #### L IPID, DLDL, TSH, RENAL #### [facility] [address] [place] [address] Dr. Fátima Keller VITAMIN D 25 OHon 10-01-2022 VIT D 25-OH 8.3 ng/mL Normal [facility] Comment on above: Performed By: #### V ITAD #### [facility] [address] [place], [place] [address] Dr. Fátima Keller VIT D RANGES SEE BELOW Normal [facility] Comment on above: Result Comment: <20 ng/mL Vit D deficient 20 - <30 ng/mL Vit D insufficient 30 - 100 ng/mL Vit D sufficient >100 ng/mL Potential Toxicity Performed By: #### V ITAD #### [facility] [address] [place], [place] [address] Dr. Fátima Keller Encounters Encounter Date Encounter Type Care Provider Facility Start: 10-01-2022 End: 10-02-[address] GILES RUIZ Facility: Payers Date Payer Category Payer Unknown [id number] 1957 Unknown [id number] Summary Purpose Family History No Family History Records Found Advance Directives No Advanced Directives Records Found Additional Source Comments (unrecognized sect ion and content) No Status Records Found INFORMATION SOURCE (unrecogn ized section and content) DATE CREATED AUTHOR 11/13/2022 [facility] FOR RECORDS PERTAINING TO PATIENTS [...] BE BASED ON THE PRIMARY CLINICAL RECORDS. [employer] [facility]. provides no warranty or guarantee of the accuracy or completeness of information in this document.
--- NOTE | 2023-10-11 08:01 | VEIN_ITS ---
[address] [address] Patient Name: BLAKE CARDONA MRN: [id number] date: 1985 Sex: M Assigned Patient Location: Current Patient Location: Accession/Order Number: [id number] Exam Date: 10/11/2023 08:45 Report Date: 10/11/2023 09:59 At the request of: ILANA GUTIERRES Procedure: VC Endovenous Ablation 1VeinRT EXAMINATION: VC Endovenous Ablation 1Vein right great saphenous vein HISTORY: Pain due to varicose veins of bilateral legs I83.813 COMPARISON: No relevant comparison available. TECHNIQUE: The risks and benefits of the procedure had been previously discussed, and were rediscussed at length. Informed written consent was obtained. Nicole Solis and Harmony Hernandez assisted. Time out procedure was performed. The right lower extremity was prepared and draped in the usual sterile fashion to allow knee flexion in the sterile field. Duplex ultrasound probe was draped in a sterile cover, sterile transmission gel was used. Venous mapping was performed with the areas of dilation and large tributaries marked. The total length was 40 cm from the entry upper to mid calf to 3 cm below the saphenofemoral junction. The diameter of the greater saphenous vein ranged from 5-7 mm. A 30 gauge needle and 1% buffered lidocaine was used to anesthetize the entry site. A 4 mm incision was made with a scalpel and the saphenous vein was entered percutaneously under direct ultrasound guidance with a micropuncture set, a single stick was successful in gaining access. A micro-guide wire was inserted and the needle removed. A micro-set including a dilator was inserted over the microwire and the needle and dilator were removed. A 0.018 guide wire was inserted through the micro-set and threaded through the saphenous vein to the saphenofemoral junction. The dilator was removed and an introducer sheath was inserted over the wire until the end of the sheath entered the saphenofemoral junction. The dilator and wire were removed and the 600 micron fiber was introduced and placed and positioned so that it extended beyond the sheath and was 3 cm peripheral to the saphenofemoral femoral junction. Final position of the fiber was determined by ultrasound guidance and duplex imaging. Tumescent anesthetic was delivered by ultrasound guidance. 250 cc of fluid was delivered along the entire course of the saphenous vein. The solution consisted of 1000 cc of normal saline with 40 mL of 1% lidocaine and 20 mL of sodium bicarbonate. A final positioning check was made. The energy source was turned on by means of the foot pedal and the fiber and sheath were withdrawn. The total number of Joules delivered was 2039. The laser was active for 255 seconds under continuous pulse, average laser use of 8 J. Laser start time 9:18 am 10/11/23 . Laser stop time 9:25 am 10/01/23 . A duplex ultrasound revealed compressibility and flow at the saphenofemoral junction immediately after the procedure. Hemostasis at the access site was achieved. The skin incision of the saphenous vein was closed with a 4 x 4. A compression stocking was applied. Postop instructions were given. A follow up appointment was recommended and scheduled. The patient tolerated the procedure well and was discharged in good condition . VEIN/VC Endovenous Ablation 1VeinRT IMPRESSION: Technically successful endovenous laser ablation of the right great saphenous vein Electronically authenticated by: ILANA GUTIERRES Date: 10/11/2023 09:59
[2023-10-11] MEDS: LIDOCAINE HCL 1% 100 MG/10 ML MDV INJ (11:03)
[2023-10-11] MEDS: 0.9 % SODIUM CHLORIDE 500 ML, LIDOCAINE HCL 20 ML, SODIUM BICARBONATE 10 MEQ INJ (11:03)
== END 2023-10-11 07:59 | disposition home or self-care (01) ==
LOC: VC 07:58
PROVIDERS: PCP Podiatrist Foot & Ankle Surgery; Visit Provider Radiology Diagnostic Radiology
DX: I83.813 Varicose veins of bilateral lower extremities with pain (principal)
CPT/HCPCS: 36478

== ENCOUNTER 2023-10-18 10:10 | Outpatient (OUT) | payer MEDICAID, SELFPAY ==
--- NOTE | 2023-10-18 10:14 | VEIN_ITS ---
Patient Name: BLAKE CARDONA MR#: [id number] : 1985 Exam Date: 10/18/2023 Ordering Doctor: DR ILANA GUTIERRES M.D. RADIOLOGY REPORT PROCEDURE: [facility] L[facility]D VEIN C[facility] - OFFICE VISIT FOLLOW UP COMPARISON: None. PROGRESS NOTES: The patient reports improvement in leg symptoms. There has been interval reduction in varicosities. The patient has followed our recommendations to walk 20-30 minutes once or twice per day since the procedure. Physical exam demonstrates decrease in varicosities of the leg. Persistent varicosities are identified along the legs bilaterally. Review of the ultrasound performed the same day demonstrates occlusive thrombus extending throughout the treated vein(s), see separate report, consistent with a successful ablation. No thrombus extending into or beyond the saphenofemoral junction. The patient expressed a desire to proceed with treatment of remaining incompetent varicosities. The patient was informed that treatment was a process and would require several procedures/sessions. VEIN/ Facility EST LMTD IMPRESSION: 1. Successful ablation of the right great saphenous vein(s). 2. 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 PLAN: Endovenous laser ablation of left great saphenous vein. Nurse notes, history and physical were reviewed and confirmed, see attached forms. The nurse was present throughout the physical exam and consultation Dictated by: Nabeel Waters M.D. on 10/18/2023 at 12:36 Approved by: Nabeel Waters M.D. on 10/18/2023 at 12:37
--- NOTE | 2023-10-18 10:14 | VEIN_ITS ---
Patient Name: BLAKE CARDONA MR#: [id number] : 1985 Exam Date: 10/18/2023 Ordering Doctor: DR ILANA GUTIERRES M.D. RADIOLOGY REPORT PROCEDURE: VC EXT VENOUS RT LMTD COMPARISON: None. INDICATIONS: Phlebitis of superficial veins of right lower extremity I80.01 TECHNIQUE: Lower extremity lind scale and Duplex Doppler evaluation of the deep venous system from the inguinal ligament through the calf veins. FINDINGS: REGION: Right lower extremity. THROMBI: Negative for DVT. Heat induced thrombus in right GSV 2.8 cm from SFJ and extends to medial knee. COMPRESSIBILITY: Non-compressible segments corresponding to thrombus FLOW: Areas of no flow corresponding to thrombus OTHER: CONCLUSION: 1. Successful post ablation occlusion of right great saphenous vein. Dictated by: Nabeel Waters M.D. on 10/18/2023 at 12:35 Approved by: Nabeel Waters M.D. on 10/18/2023 at 12:36
== END 2023-10-18 10:11 | disposition home or self-care (01) ==
LOC: VC 10:11
PROVIDERS: PCP Radiology Diagnostic Radiology; Visit Provider Radiology Diagnostic Radiology
DX: I80.01 Phlebitis and thrombophlebitis of superficial vessels of right lower extremity (principal)
CPT/HCPCS: 93971; G0463

== ENCOUNTER 2023-10-25 07:23 | Outpatient (OUT) | payer MEDICAID, SELFPAY ==
--- OUTSIDE RECORDS SUMMARY | 2023-10-25 07:26 | XMS_ITS | CCD ---
Author Name Unknown Address [address] [place] [address] Organization [facility] Care Team Providers Care Wellness Program Coordinator Name Role Phone HOUSE, DR SKAGGS Primary Care Unavailable GABI WEBB Attending Unavailable GABI WEBB Consulting Unavailable GABI WEBB Admitting Unavailable Allergies Allergy Classification Reported Allergen(s) Allergy Type Date of Onset Reaction(s) Facility (1 source) Chlorhexidine Drug Allergy [facility] (1 source) Methocarbamol Drug Allergy [facility] Problems Problem Classification Problem Date [...] C-Peptide, Serum 3.6 ng/mL Normal 1.1-4.4 [facility] Comment on above: Result Comment: C-Pe ptide reference interval is for fasting patients. Performed By: #### C PEPT #### [facility] [address] [place], [place] [address] Dr. Fátima Keller DIRECT LDLon 10-01-2022 Cholesterol in LDL [Mass/Vol] 98 mg/dL Normal [facility] Comment on above: Performed By: #### L IPID, DLDL, TSH, RENAL #### [facility] [address] [place], [place] [address] Dr. Fátima Keller DLDL NORMAL SEE BELOW Normal [facility] Comment on above: Result Comment: <100 mg/dl OPTIMAL 100 - 129 mg/dl NEAR OR ABOVE OPTIMAL 130 - 159 mg/dl BORDERLINE HIGH 160 - 189 mg/dl HIGH >190 mg/dl VERY HIGH Performed By: #### L IPID, DLDL, TSH, RENAL #### [facility] [address] [place] [address] [address] Fátima Keller LIPID PROFILEon 10-01-2022 CHOL-HDL RATIO NORM SEE BELOW Normal [facility] Comment on above: Result Comment: 3.3 - 4.4 LOW RISK 4.4 - 7.1 AVERAGE RISK 7.1 - 11.0 MODERATE RISK >11.0 HIGH RISK Performed By: #### L IPID, DLDL, TSH, RENAL #### [facility] [address] [place] [address] [address] Fátima Keller Cholesterol [Mass/Vol] 320 mg/dL Critically high <=200 [facility] Comment on above: Performed By: #### L IPID, DLDL, TSH, RENAL #### [facility] [address] [place] [address] [address] Fátima Keller Cholesterol in HDL [Mass/Vol] 38 mg/dL Critically low 40-60 [facility] Comment on above: Performed By: #### L IPID, DLDL, TSH, RENAL #### [facility] [address] [place] [address] [address] Fátima Keller Cholesterol in LDL [Mass/Vol] 51.8 mg/dL Normal [facility] Comment on above: Performed By: #### L IPID, DLDL, TSH, RENAL #### [facility] [address] [place] [address] [address] Fátima Keller Cholesterol.total/ Cholesterol in HDL [Mass ratio] 8.4 {ratio} Normal [facility] Comment on above: Performed By: #### L IPID, DLDL, TSH, RENAL #### [facility] [address] [address] [address] Fátima Keller HDL NORMAL > or = 60 mg/dl - LO W CARDIOVASCULAR RISK <40 mg/dl - HIGH CARDIOVASCULAR RISK Normal [facility] Comment on above: Performed By: #### L IPID, DLDL, TSH, RENAL #### [facility] [address] [address] [address] Fátima Keller LDL CALC NORMAL SEE BELOW Normal [facility] Comment on above: Result Comment: <100 mg/dl OPTIMAL 100 - 129 mg/dl NEAR OR ABOVE OPTIMAL 130 - 159 mg/dl BORDERLINE HIGH 160 - 189 mg/dl HIGH >190 mg/dl VERY HIGH Performed By: #### L IPID, DLDL, TSH, RENAL #### [facility] [address] [address] [address] Fátima Keller Triglyceride [Mass/Vol] 1151 mg/dL Critically high <=150 [facility] Comment on above: Performed By: #### L IPID, DLDL, TSH, RENAL #### [facility] [address] [place] [address] Dr. Fátima Keller VLDL CALC 230.2 mg/dL Normal [facility] Comment on above: Performed By: #### L IPID, DLDL, TSH, RENAL #### [facility] [address] [place] [address] Dr. Fátima Keller MICROALB CREAT RATIO RANDOMo n 10-01-2022 mALB 32.2 mg/L Critically high <=30.0 [facility] Comment on above: Performed By: #### M CRR #### [facility] [address] [place] [address] Dr. Fátima Keller MALB CR RATIO 794.5 mg/g Critically high 0.0-29.9 [facility] Comment on above: Performed By: #### M CRR #### [facility] [address] [address] [address] Fátima Keller MALB CR RATIO RANGE SEE BELOW Normal [facility] Comment on above: Result Comment: NO M ICROALBUMINURIA 0-29 MG/G CLINICAL MICROALBUMINURIA 30-300 MG/G MACROALBUMINURIA >300 MG/G Performed By: #### M CRR #### [facility] [address] [address] [address] Fátima Keller URINE CREAT 40.53 mg/dL Normal 20.00-300.00 [facility] Comment on above: Performed By: #### M CRR #### [facility] [address] [place] [address] [address] Fátima Keller RENAL FUNCTION PANELon 10-01 Albumin [Mass/Vol] 3.2 g/dL Critically low 3.4-5.0 [facility] Comment on above: Performed By: #### L IPID, DLDL, TSH, RENAL #### [facility] [address] [address] [address] Fátima Keller Calcium [Mass/Vol] 9.5 mg/dL Normal 8.5-10.1 [facility] Comment on above: Performed By: #### L IPID, DLDL, TSH, RENAL #### [facility] [address] [place] [address] Dr. Fátima Keller Chloride [Moles/Vol] 99 mmol/L Normal 98-107 [facility] Comment on above: Performed By: #### L IPID, DLDL, TSH, RENAL #### [facility] [address] [address] [address] Fátima Keller CO2 [Moles/Vol] 24.6 mmol/L Normal 21.0-32.0 [facility] Comment on above: Performed By: #### L IPID, DLDL, TSH, RENAL #### [facility] [address] [place] [address] Dr. Fátima Keller Creatinine [Mass/Vol] 0.86 mg/dL Normal 0.70-1.30 [facility] Comment on above: Performed By: #### L IPID, DLDL, TSH, RENAL #### [facility] [address] [address] [address] Fátima Keller EGFR-AF SWAZI >60 Normal >=60 [facility] Comment on above: Performed By: #### L IPID, DLDL, TSH, RENAL #### [facility] [address] [place] [address] [address] Fátima Keller EGFR-NON AF SWAZI >60 Normal >=60 [facility] Comment on above: Performed By: #### L IPID, DLDL, TSH, RENAL #### [facility] [address] [place] [address] Dr. Fátima Keller Glucose [Mass/Vol] 222 mg/dL Critically high 74-106 [facility] Comment on above: Performed By: #### L IPID, DLDL, TSH, RENAL #### [facility] [address] [place] [address] Dr. Fátima Keller Phosphate [Mass/Vol] 4.2 mg/dL Normal 2.6-4.7 [facility] Comment on above: Performed By: #### L IPID, DLDL, TSH, RENAL #### [facility] [address] [place] [address] Dr. Fátima Keller Potassium [Moles/Vol] 4.0 mmol/L Normal 3.5-5.1 [facility] Comment on above: Performed By: #### L IPID, DLDL, TSH, RENAL #### [facility] [address] [place] [address] Dr. Fátima Keller Sodium [Moles/Vol] 135 mmol/L Critically low 136-145 [facility] Comment on above: Performed By: #### L IPID, DLDL, TSH, RENAL #### [facility] [address] [place] [address] Dr. Fátima Keller Urea nitrogen [Mass/Vol] 22.0 mg/dL Critically high 7.0-18.0 [facility] Comment on above: Performed By: #### L IPID, DLDL, TSH, RENAL #### [facility] [address] [place] [address] Dr. Fátima Keller TSHon 10-01-2022 TSH 1.680 uIU/mL Normal 0.358-3.740 [facility] Comment on above: Performed By: #### L IPID, DLDL, TSH, RENAL #### [facility] [address] [place] [address] Dr. Fátima Keller VITAMIN D 25 OHon 10-01-2022 VIT D 25-OH 8.3 ng/mL Normal [facility] Comment on above: Performed By: #### V ITAD #### [facility] [address] [place], [place] [address] Dr. Fátima Keller VIT D RANGES SEE BELOW Normal [facility] Comment on above: Result Comment: <20 ng/mL Vit D deficient 20 - <30 ng/mL Vit D insufficient 30 - 100 ng/mL Vit D sufficient >100 ng/mL Potential Toxicity Performed By: #### V ITAD #### [facility] [address] [place], [place] [address] Dr. Fátima Keller Encounters Encounter Date Encounter Type Care Provider Facility Start: 10-01-2022 End: 10-02-[address] GILES RUIZ Facility: Payers Date Payer Category Payer Unknown [id number] 1957 Unknown [id number] Summary Purpose Family History No Family History Records Found Advance Directives No Advanced Directives Records Found Additional Source Comments (unrecognized sect ion and content) No Status Records Found INFORMATION SOURCE (unrecogn ized section and content) DATE CREATED AUTHOR 11/13/2022 [facility] FOR RECORDS PERTAINING TO PATIENTS WHO [...] BE BASED ON THE PRIMARY CLINICAL RECORDS. [employer] [facility]. provides no warranty or guarantee of the accuracy or completeness of information in this document.
--- NOTE | 2023-10-25 07:30 | VEIN_ITS ---
[address] [address] Patient Name: BLAKE CARDONA MRN: [id number] date: 1985 Sex: M Assigned Patient Location: Current Patient Location: Accession/Order Number: [id number] Exam Date: 10/25/2023 07:30 Report Date: 10/25/2023 08:36 At the request of: ILANA GUTIERRES Procedure: VC Endovenous Ablation 1VeinLT EXAMINATION: VC Endovenous Ablation 1Vein LT Great saphenous vein HISTORY: I83.813 Bilateral painful varicose veins COMPARISON: No relevant comparison available. TECHNIQUE: The risks and benefits of the procedure had been previously discussed, and were rediscussed at length. Informed written consent was obtained. Nicole Solis and Andrews Dominguez assisted. Time out procedure was performed. The left lower extremity was prepared and draped in the usual sterile fashion to allow knee flexion in the sterile field. Duplex ultrasound probe was draped in a sterile cover, sterile transmission gel was used. Venous mapping was performed with the areas of dilation and large tributaries marked. The total length was 33 cm from the entry at the knee to 3 cm below the saphenofemoral junction. The diameter of the greater saphenous vein ranged from 4-12 mm. A 30 gauge needle and 1% buffered lidocaine was used to anesthetize the entry site. A 4 mm incision was made with a scalpel and the saphenous vein was entered percutaneously under direct ultrasound guidance with a micropuncture set, 3 attempts were made before access was gained. A micro-guide wire was inserted and the needle removed. A micro-set including a dilator was inserted over the microwire and the needle and dilator were removed. A 0.018 guide wire was inserted through the micro-set and threaded through the saphenous vein to the saphenofemoral junction. The dilator was removed and an introducer sheath was inserted over the wire until the end of the sheath entered the saphenofemoral junction. The dilator and wire were removed and the 600 micron fiber was introduced and placed and positioned so that it extended beyond the sheath and was 3 cm peripheral to the saphenofemoral femoral junction. Final position of the fiber was determined by ultrasound guidance and duplex imaging. Tumescent anesthetic was delivered by ultrasound guidance. 200 cc of fluid was delivered along the entire course of the saphenous vein. The solution consisted of 1000 cc of normal saline with 40 mL of 1% lidocaine and 20 mL of sodium bicarbonate. A final positioning check was made. The energy source was turned on by means of the foot pedal and the fiber and sheath were withdrawn. The total number of Joules delivered was 1605. The laser was active for 201seconds under continuous pulse, average laser use of 8 J. Laser start time 8:20 AM 10/25/2023 . Laser stop time 8:24 AM 10/25/2023M . A duplex ultrasound revealed compressibility and flow at the saphenofemoral junction immediately after the procedure. Hemostasis at the access site was achieved. The skin incision of the saphenous vein was closed with a 4 x 4. A compression stocking was applied. Postop instructions were given. A follow up appointment was recommended and scheduled. The patient tolerated the procedure well and was discharged in good condition . VEIN/VC Endovenous Ablation 1VeinLT IMPRESSION: Technically successful endovenous laser ablation of the left great saphenous vein Electronically authenticated by: ILANA GUTIERRES Date: 10/25/2023 08:36
[2023-10-25] MEDS: LIDOCAINE HCL 1% 100 MG/10 ML MDV INJ (07:43)
[2023-10-25] MEDS: 0.9 % SODIUM CHLORIDE 500 ML, LIDOCAINE HCL 20 ML, SODIUM BICARBONATE 10 MEQ INJ (07:43)
== END 2023-10-25 07:24 | disposition home or self-care (01) ==
LOC: VC 07:23
PROVIDERS: PCP Radiology Diagnostic Radiology; Visit Provider Radiology Diagnostic Radiology
DX: I83.813 Varicose veins of bilateral lower extremities with pain (principal)
CPT/HCPCS: 36478

== ENCOUNTER 2023-11-01 08:50 | Outpatient (OUT) | payer MEDICAID, SELFPAY ==
--- NOTE | 2023-11-01 08:51 | VEIN_ITS ---
Patient Name: BLAKE CARDONA MR#: [id number] : 1985 Exam Date: 11/01/2023 Ordering Doctor: DR ILANA GUTIERRES M.D. RADIOLOGY REPORT PROCEDURE: VC EXT VENOUS LT LIMITED COMPARISON: None. INDICATIONS: I80.02 Phlebitis of superficial veins of left lower extremity TECHNIQUE: Lower extremity lind scale and Duplex Doppler evaluation of the deep venous system from the inguinal ligament through the calf veins. FINDINGS: REGION: Left lower extremity. THROMBI: Negative for DVT. Heat induced thrombus in left GSV 1.7 cm from SFJ and extends to medial knee. COMPRESSIBILITY: Non-compressible segments corresponding to thrombus FLOW: Areas of no flow corresponding to thrombus OTHER: CONCLUSION: 1. Successful post ablation occlusion of left great saphenous vein. Dictated by: Nabeel Waters M.D. on 11/01/2023 at 09:30 Approved by: Nabeel Waters M.D. on 11/01/2023 at 09:39
--- NOTE | 2023-11-01 08:51 | VEIN_ITS ---
Patient Name: BLAKE CARDONA MR#: [id number] : 1985 Exam Date: 11/01/2023 Ordering Doctor: DR ILANA GUTIERRES M.D. RADIOLOGY REPORT PROCEDURE: [facility] EST L[facility] VEIN CENTER - OFFICE VISIT FOLLOW UP [facility] PROGRESS NOTES: The patient reports improvement in leg symptoms. There has been interval reduction in varicosities. The patient has followed our recommendations to walk 20-30 minutes once or twice per day since the procedure. Physical exam demonstrates decrease in varicosities of the leg. Persistent superficial varicosities are identified along the legs bilaterally. Review of the ultrasound performed the same day demonstrates occlusive thrombus extending throughout the treated vein(s), see separate report, consistent with a successful ablation. No thrombus extending into or beyond the saphenofemoral junction. The patient expressed a desire to proceed with treatment of remaining incompetent varicosities. The patient was informed that treatment was a process and would require several procedures/sessions. VEIN/[facility] EST TD IMPRESSION: 1. Successful ablation of the left great saphenous vein(s). 2. Persistent varicose veins and lower extremity symptoms. PLAN: Endovenous laser ablation of right anterior accessory saphenous vein. Nurse notes, history and physical were reviewed and confirmed, see attached forms. The nurse was present throughout the physical exam and consultation Dictated by: Nabeel Waters M.D. on 11/01/2023 at 09:39 Approved by: Nabeel Waters M.D. on 11/01/2023 at 09:40
--- OUTSIDE RECORDS SUMMARY | 2023-11-01 09:07 | XMS_ITS | CCD ---
Author Name Unknown Address [address] [place] [address] Organization [facility] Care Team Providers Care Sprinkler Irrigation Equipment Mechanic Name Role Phone HOUSE, DR SKAGGS Primary Care Unavailable GABI WEBB Attending Unavailable GABI WEBB Consulting Unavailable GABI WEBB Admitting Unavailable Allergies Allergy Classification Reported Allergen(s) Allergy Type Date of Onset Reaction(s) Facility (1 source) Chlorhexidine Drug Allergy [facility] Repository (1 source) Methocarbamol Drug Allergy [facility] Problems Problem Classification Problem Date [...] C-Peptide, Serum 3.6 ng/mL Normal 1.1-4.4 The [facility] Comment on above: Result Comment: C-Pe ptide reference interval is for fasting patients. Performed By: #### C PEPT #### [facility] [address] [place], [place] [address] Dr. Fátima Keller DIRECT LDLon 10-01-2022 Cholesterol in LDL [Mass/Vol] 98 mg/dL Normal [facility] Comment on above: Performed By: #### L IPID, DLDL, TSH, RENAL #### [facility] [address] [place], [place] [address] Dr. Fátmia Keller DLDL NORMAL SEE BELOW Normal [facility] Comment on above: Result Comment: <100 mg/dl OPTIMAL 100 - 129 mg/dl NEAR OR ABOVE OPTIMAL 130 - 159 mg/dl BORDERLINE HIGH 160 - 189 mg/dl HIGH >190 mg/dl VERY HIGH Performed By: #### L IPID, DLDL, TSH, RENAL #### [facility] [address] [place] [address] [address] Fátima Keller LIPID PROFILEon 10-01-2022 CHOL-HDL RATIO NORM SEE BELOW Normal [facility] Comment on above: Result Comment: 3.3 - 4.4 LOW RISK 4.4 - 7.1 AVERAGE RISK 7.1 - 11.0 MODERATE RISK >11.0 HIGH RISK Performed By: #### L IPID, DLDL, TSH, RENAL #### [facility] [address] [address] [address] Fátima Keller Cholesterol [Mass/Vol] 320 mg/dL Critically high <=200 [facility] Comment on above: Performed By: #### L IPID, DLDL, TSH, RENAL #### [facility] [address] [address] [address] Fátima Keller Cholesterol in HDL [Mass/Vol] 38 mg/dL Critically low 40-60 [facility] Comment on above: Performed By: #### L IPID, DLDL, TSH, RENAL #### [facility] [address] [address] [address] Fátima Keller Cholesterol in LDL [Mass/Vol] 51.8 mg/dL Normal [facility] Comment on above: Performed By: #### L IPID, DLDL, TSH, RENAL #### [facility] [address] [address] [address] Fátima Keller Cholesterol.total/ Cholesterol in HDL [Mass ratio] 8.4 {ratio} Normal [facility] Comment on above: Performed By: #### L IPID, DLDL, TSH, RENAL #### [facility] [address] [address] [address] Fátima Keller HDL NORMAL > or = 60 mg/dl - LO W CARDIOVASCULAR RISK <40 mg/dl - HIGH CARDIOVASCULAR RISK Normal [facility] Comment on above: Performed By: #### L IPID, DLDL, TSH, RENAL #### [facility] [address] [address] [address] Fátima Keller LDL CALC NORMAL SEE BELOW Normal [facility] Comment on above: Result Comment: <100 mg/dl OPTIMAL 100 - 129 mg/dl NEAR OR ABOVE OPTIMAL 130 - 159 mg/dl BORDERLINE HIGH 160 - 189 mg/dl HIGH >190 mg/dl VERY HIGH Performed By: #### L IPID, DLDL, TSH, RENAL #### [facility] [address] [address] [address] Fátima Keller Triglyceride [Mass/Vol] 1151 mg/dL Critically high <=150 [facility] Comment on above: Performed By: #### L IPID, DLDL, TSH, RENAL #### [facility] [address] [place] [address] Dr. Fátima Keller VLDL CALC 230.2 mg/dL Normal [facility] Comment on above: Performed By: #### L IPID, DLDL, TSH, RENAL #### [facility] [address] [place] [address] Dr. Fátima Keller MICROALB CREAT RATIO RANDOMo n 10-01-2022 mALB 32.2 mg/L Critically high <=30.0 The [facility] Comment on above: Performed By: #### M CRR #### [facility] [address] [place] [address] Dr. Fátima Keller MALB CR RATIO 794.5 mg/g Critically high 0.0-29.9 [facility] Comment on above: Performed By: #### M CRR #### [facility] [address] [address] [address] Fátima Keller MALB CR RATIO RANGE SEE BELOW Normal [facility] Comment on above: Result Comment: NO M ICROALBUMINURIA 0-29 MG/G CLINICAL MICROALBUMINURIA 30-300 MG/G MACROALBUMINURIA >300 MG/G Performed By: #### M CRR #### [facility] [address] [address] [address] Fátima Keller URINE CREAT 40.53 mg/dL Normal 20.00-300.00 [facility] Comment on above: Performed By: #### M CRR #### [facility] [address] [address] [address] Fátima Keller RENAL FUNCTION PANELon 10-01 Albumin [Mass/Vol] 3.2 g/dL Critically low 3.4-5.0 Th [facility] Comment on above: Performed By: #### L IPID, DLDL, TSH, RENAL #### [facility] [address] [address] [address] Fátima Keller Calcium [Mass/Vol] 9.5 mg/dL Normal 8.5-10.1 [facility] Comment on above: Performed By: #### L IPID, DLDL, TSH, RENAL #### [facility] [address] [place] [address] Dr. Fátima Keller Chloride [Moles/Vol] 99 mmol/L Normal 98-107 [facility] Comment on above: Performed By: #### L IPID, DLDL, TSH, RENAL #### [facility] [address] [address] [address] Fátima Keller CO2 [Moles/Vol] 24.6 mmol/L Normal 21.0-32.0 [facility] Comment on above: Performed By: #### L IPID, DLDL, TSH, RENAL #### [facility] [address] [place] [address] Dr. Fátima Keller Creatinine [Mass/Vol] 0.86 mg/dL Normal 0.70-1.30 [facility] Comment on above: Performed By: #### L IPID, DLDL, TSH, RENAL #### [facility] [address] [address] [address] Fátima Keller EGFR-AF [place]LANDER >60 Normal >=60 [facility] Comment on above: Performed By: #### L IPID, DLDL, TSH, RENAL #### [facility] [address] [address] [address] Fátima Keller EGFR-NON AF [place]ER >60 Normal >=60 [facility] Comment on above: Performed By: #### L IPID, DLDL, TSH, RENAL #### [facility] [address] [place] [address] Dr. Fátima Keller Glucose [Mass/Vol] 222 mg/dL Critically high 74-106 T [facility] Comment on above: Performed By: #### L IPID, DLDL, TSH, RENAL #### [facility] [address] [place] [address] Dr. Fátima Keller Phosphate [Mass/Vol] 4.2 mg/dL Normal 2.6-4.7 [facility] Comment on above: Performed By: #### L IPID, DLDL, TSH, RENAL #### [facility] [address] [place] [address] Dr. Fátima Keller Potassium [Moles/Vol] 4.0 mmol/L Normal 3.5-5.1 [facility] Comment on above: Performed By: #### L IPID, DLDL, TSH, RENAL #### [facility] [address] [place] [address] Dr. Fátima Keller Sodium [Moles/Vol] 135 mmol/L Critically low 136-145 [facility] Comment on above: Performed By: #### L IPID, DLDL, TSH, RENAL #### [facility] [address] [place] [address] Dr. Fátima Keller Urea nitrogen [Mass/Vol] 22.0 mg/dL Critically high 7.0-18.0 [facility] Comment on above: Performed By: #### L IPID, DLDL, TSH, RENAL #### [facility] [address] [place] [address] Dr. Fátima Keller TSHon 10-01-2022 TSH 1.680 uIU/mL Normal 0.358-3.740 [facility] Comment on above: Performed By: #### L IPID, DLDL, TSH, RENAL #### [facility] [address] [place] [address] Dr. Fátima Keller VITAMIN D 25 OHon 10-01-2022 VIT D 25-OH 8.3 ng/mL Normal [facility] Comment on above: Performed By: #### V ITAD #### [facility] [address] [place], [place] [address] Dr. Fátima Keller VIT D RANGES SEE BELOW Normal [facility] Comment on above: Result Comment: <20 ng/mL Vit D deficient 20 - <30 ng/mL Vit D insufficient 30 - 100 ng/mL Vit D sufficient >100 ng/mL Potential Toxicity Performed By: #### V ITAD #### [facility] [address] [place], [place] [address] Dr. Fátima Keller Encounters Encounter Date Encounter Type Care Provider Facility Start: 10-01-2022 End: 10-02-[address] GILES RUIZ Facility: Payers Date Payer Category Payer Unknown [id number] 1957 Unknown [id number] Summary Purpose Family History No Family History Records Found Advance Directives No Advanced Directives Records Found Additional Source Comments (unrecognized sect ion and content) No Status Records Found INFORMATION SOURCE (unrecogn ized section and content) DATE CREATED AUTHOR 11/13/2022 The [facility] FOR RECORDS PERTAINING TO PATIENTS WHO [...] BE BASED ON THE PRIMARY CLINICAL RECORDS. [employer] [facility]. provides no warranty or guarantee of the accuracy or completeness of information in this document.
== END 2023-11-01 08:51 | disposition home or self-care (01) ==
LOC: VC 08:50
PROVIDERS: PCP Radiology Diagnostic Radiology; Visit Provider Radiology Diagnostic Radiology
DX: I80.02 Phlebitis and thrombophlebitis of superficial vessels of left lower extremity (principal)
CPT/HCPCS: 93971; G0463

== ENCOUNTER 2023-11-21 07:33 | Outpatient (OUT) | payer MEDICAID, SELFPAY ==
--- NOTE | 2023-11-21 07:34 | VEIN_ITS ---
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 Informed written consent was obtained. Andrews Dominguez RN and Ora Solis RDMS, RVT assisted. Time out procedure was performed. The right lower extremity was prepared and draped in the usual sterile fashion to allow knee flexion in the sterile field. Duplex ultrasound probe was draped in a sterile cover, sterile transmission gel was used. Venous mapping was performed with the areas of dilation and large tributaries marked. The total length was 22 cm from the entry mid thigh to 3 cm below the Saphenofemoral junction. The diameter of the right anterior accessory saphenous vein ranged from 8.3 mm. A 30 gauge needle and 1% buffered lidocaine was used to anesthetize the entry site. A 4 mm incision was made with a scalpel and the saphenous vein was entered percutaneously under direct ultrasound guidance with a micropuncture set, a single stick was successful in gaining access. A micro-guide wire was inserted and the needle removed. A micro-set including a dilator was inserted over the microwire and the needle and dilator were removed. A guide wire was inserted through the micro-set and guided through the saphenous vein to the saphenofemoral junction. The dilator was removed and an introducer sheath was inserted over the wire until the end of the sheath entered the saphenofemoral junction. The dilator and wire were removed and the 600 micron fiber was introduced and placed and positioned so that it extended beyond the sheath and was 3 cm distal to the saphenofemoral or saphenopopliteal junction. Final position of the fiber was determined by ultrasound guidance and duplex imaging. Tumescent anesthetic was delivered by ultrasound guidance. 125 cc of fluid was delivered along the entire course of the saphenous vein. The solution consisted of 1000 cc of normal saline with 40 mL of 1% lidocaine and 20 mL of sodium bicarbonate. A final positioning check was made. The energy source was turned on by means of the foot pedal and the fiber and sheath were withdrawn. The total number of Joules delivered was 1476. The laser was active for 185 seconds under continuous pulse, average laser use of 8 J. Laser start time 8:24 AM, 11/21/2023. Laser stop time 8:28 AM, 11/21/2023. A duplex ultrasound revealed compressibility and flow at the saphenofemoral junction immediately after the procedure. Hemostasis at the access site was achieved. The skin incision of the saphenous vein was closed with a 4 x 4. A compression stocking was applied. Postop instructions were given. A follow up appointment was recommended and scheduled. The patient tolerated the procedure well. Electronically authenticated by: NATHALY AZAR Date: 11/21/2023 08:52
--- OUTSIDE RECORDS SUMMARY | 2023-11-21 07:36 | XMS_ITS | CCD ---
Author Name Unknown Address [address] [place] [address] Organization [facility] Care Team Providers Care Hospice Plan Administrator Name Role Phone HOUSE, DR SKAGGS Primary Care Unavailable GABI WEBB Attending Unavailable GABI WEBB Consulting Unavailable GABI WEBB Admitting Unavailable Allergies Allergy Classification Reported Allergen(s) Allergy Type Date of Onset Reaction(s) Facility (1 source) Chlorhexidine Drug Allergy [facility] Rep[facility] (1 source) Methocarbamol Drug Allergy [facility] Problems Problem Classification Problem Date Documented [...] C-Peptide, Serum 3.6 ng/mL Normal 1.1-4.4 The [facility] Comment on above: Result Comment: C-Pe ptide reference interval is for fasting patients. Performed By: #### C PEPT #### [facility] [address] [place], [place] [address] Dr. Fátima Keller DIRECT LDLon 10-01-2022 Cholesterol in LDL [Mass/Vol] 98 mg/dL Normal [facility] Comment on above: Performed By: #### L IPID, DLDL, TSH, RENAL #### [facility] [address] [place], [place] [address] Dr. Fátima Keller DLDL NORMAL SEE BELOW Normal [facility] Comment on above: Result Comment: <100 mg/dl OPTIMAL 100 - 129 mg/dl NEAR OR ABOVE OPTIMAL 130 - 159 mg/dl BORDERLINE HIGH 160 - 189 mg/dl HIGH >190 mg/dl VERY HIGH Performed By: #### L IPID, DLDL, TSH, RENAL #### [facility] [address] [place] [address] [address] Fátima Keller LIPID PROFILEon 10-01-2022 CHOL-HDL RATIO NORM SEE BELOW Normal [facility] Comment on above: Result Comment: 3.3 - 4.4 LOW RISK 4.4 - 7.1 AVERAGE RISK 7.1 - 11.0 MODERATE RISK >11.0 HIGH RISK Performed By: #### L IPID, DLDL, TSH, RENAL #### [facility] [address] [place] [address] [address] Fátima Keller Cholesterol [Mass/Vol] 320 mg/dL Critically high <=200 [facility] Comment on above: Performed By: #### L IPID, DLDL, TSH, RENAL #### [facility] [address] [place] [address] [address] Fátima Keller Cholesterol in HDL [Mass/Vol] 38 mg/dL Critically low 40-60 [facility] Comment on above: Performed By: #### L IPID, DLDL, TSH, RENAL #### [facility] [address] [place] [address] [address] Fátima Keller Cholesterol in LDL [Mass/Vol] 51.8 mg/dL Normal [facility] Comment on above: Performed By: #### L IPID, DLDL, TSH, RENAL #### [facility] [address] [place] [address] [address] Fátima Keller Cholesterol.total/ Cholesterol in HDL [Mass ratio] 8.4 {ratio} Normal [facility] Comment on above: Performed By: #### L IPID, DLDL, TSH, RENAL #### [facility] [address] [place] [address] [address] Fátima Keller HDL NORMAL > or = 60 mg/dl - LO W CARDIOVASCULAR RISK <40 mg/dl - HIGH CARDIOVASCULAR RISK Normal [facility] Comment on above: Performed By: #### L IPID, DLDL, TSH, RENAL #### [facility] [address] [place] [address] [address] Fátima Keller LDL CALC NORMAL SEE BELOW Normal [facility] Comment on above: Result Comment: <100 mg/dl OPTIMAL 100 - 129 mg/dl NEAR OR ABOVE OPTIMAL 130 - 159 mg/dl BORDERLINE HIGH 160 - 189 mg/dl HIGH >190 mg/dl VERY HIGH Performed By: #### L IPID, DLDL, TSH, RENAL #### [facility] [address] [place] [address] [address] Fátima Keller Triglyceride [Mass/Vol] 1151 mg/dL Critically high <=150 [facility] Comment on above: Performed By: #### L IPID, DLDL, TSH, RENAL #### [facility] [address] [place] [address] Dr. Fátima Keller VLDL CALC 230.2 mg/dL Normal [facility] Comment on above: Performed By: #### L IPID, DLDL, TSH, RENAL #### [facility] [address] [place] [address] Dr. Fátima Keller MICROALB CREAT RATIO RANDOMo n 10-01-2022 mALB 32.2 mg/L Critically high <=30.0 [facility] Comment on above: Performed By: #### M CRR #### [facility] [address] [place] [address] Dr. Fátima Keller MALB CR RATIO 794.5 mg/g Critically high 0.0-29.9 [facility] Comment on above: Performed By: #### M CRR #### [facility] [address] [place] [address] [address] Fátima Keller MALB CR RATIO RANGE SEE BELOW Normal [facility] Comment on above: Result Comment: NO M ICROALBUMINURIA 0-29 MG/G CLINICAL MICROALBUMINURIA 30-300 MG/G MACROALBUMINURIA >300 MG/G Performed By: #### M CRR #### [facility] [address] [place] [address] [address] Fátima Keller URINE CREAT 40.53 mg/dL Normal 20.00-300.00 [facility] Comment on above: Performed By: #### M CRR #### [facility] [address] [place] [address] [address] Fátima Keller RENAL FUNCTION PANELon 10-01 Albumin [Mass/Vol] 3.2 g/dL Critically low 3.4-5.0 Th [facility] Comment on above: Performed By: #### L IPID, DLDL, TSH, RENAL #### [facility] [address] [address] [address] Fátima Keller Calcium [Mass/Vol] 9.5 mg/dL Normal 8.5-10.1 [facility] Comment on above: Performed By: #### L IPID, DLDL, TSH, RENAL #### [facility] [address] [place] [address] Dr. Fátima Keller Chloride [Moles/Vol] 99 mmol/L Normal 98-107 [facility] Comment on above: Performed By: #### L IPID, DLDL, TSH, RENAL #### [facility] [address] [place] [address] [address] Fátima Keller CO2 [Moles/Vol] 24.6 mmol/L Normal 21.0-32.0 [facility] Comment on above: Performed By: #### L IPID, DLDL, TSH, RENAL #### [facility] [address] [place] [address] Dr. Fátima Keller Creatinine [Mass/Vol] 0.86 mg/dL Normal 0.70-1.30 [facility] Comment on above: Performed By: #### L IPID, DLDL, TSH, RENAL #### [facility] [address] [place] [address] [address] Fátima Keller EGFR-AF [place] ISLANDER >60 Normal >=60 [facility] Comment on above: Performed By: #### L IPID, DLDL, TSH, RENAL #### [facility] [address] [place] [address] [address] Fátima Keller EGFR-NON AF [place] ISLANDER >60 Normal >=60 [facility] Comment on above: Performed By: #### L IPID, DLDL, TSH, RENAL #### [facility] [address] [place] [address] Dr. Fátima Keller Glucose [Mass/Vol] 222 mg/dL Critically high 74-106 [facility] Comment on above: Performed By: #### L IPID, DLDL, TSH, RENAL #### [facility] [address] [place] [address] Dr. Fátima Keller Phosphate [Mass/Vol] 4.2 mg/dL Normal 2.6-4.7 [facility] Comment on above: Performed By: #### L IPID, DLDL, TSH, RENAL #### [facility] [address] [place] [address] Dr. Fátima Keller Potassium [Moles/Vol] 4.0 mmol/L Normal 3.5-5.1 [facility] Comment on above: Performed By: #### L IPID, DLDL, TSH, RENAL #### [facility] [address] [place] [address] Dr. Fátima Keller Sodium [Moles/Vol] 135 mmol/L Critically low 136-145 [facility] Comment on above: Performed By: #### L IPID, DLDL, TSH, RENAL #### [facility] [address] [place] [address] Dr. Fátima Keller Urea nitrogen [Mass/Vol] 22.0 mg/dL Critically high 7.0-18.0 [facility] Comment on above: Performed By: #### L IPID, DLDL, TSH, RENAL #### [facility] [address] [place] [address] Dr. Fátima Keller TSHon 10-01-2022 TSH 1.680 uIU/mL Normal 0.358-3.740 [facility] Comment on above: Performed By: #### L IPID, DLDL, TSH, RENAL #### [facility] [address] [place] [address] Dr. Fátima Keller VITAMIN D 25 OHon 10-01-2022 VIT D 25-OH 8.3 ng/mL Normal [facility] Comment on above: Performed By: #### V ITAD #### [facility] [address] [place], [place] [address] Dr. Fátima Keller VIT D RANGES SEE BELOW Normal [facility] Comment on above: Result Comment: <20 ng/mL Vit D deficient 20 - <30 ng/mL Vit D insufficient 30 - 100 ng/mL Vit D sufficient >100 ng/mL Potential Toxicity Performed By: #### V ITAD #### [facility] [address] [place], [place] [address] Dr. Fátima Keller Encounters Encounter Date Encounter Type Care Provider Facility Start: 10-01-2022 End: 10-02-[address] GILES RUIZ Facility: Payers Date Payer Category Payer Unknown [id number] 1957 Unknown [id number] Summary Purpose Family History No Family History Records Found Advance Directives No Advanced Directives Records Found Additional Source Comments (unrecognized sect ion and content) No Status Records Found INFORMATION SOURCE (unrecogn ized section and content) DATE CREATED AUTHOR 11/13/2022 [facility] FOR RECORDS PERTAINING TO PATIENTS WHO [...] BE BASED ON THE PRIMARY CLINICAL RECORDS. [employer] [facility]. provides no warranty or guarantee of the accuracy or completeness of information in this document.
[2023-11-21] MEDS: LIDOCAINE HCL 1% 100 MG/10 ML MDV INJ (08:13)
[2023-11-21] MEDS: 0.9 % SODIUM CHLORIDE 500 ML, LIDOCAINE HCL 20 ML, SODIUM BICARBONATE 10 MEQ INJ (08:14)
== END 2023-11-21 07:34 | disposition home or self-care (01) ==
LOC: VC 07:34
PROVIDERS: PCP Radiology Diagnostic Radiology; Visit Provider Radiology Diagnostic Radiology
DX: I83.813 Varicose veins of bilateral lower extremities with pain (principal)
CPT/HCPCS: 36478

== ENCOUNTER 2023-11-29 09:04 | Outpatient (OUT) | payer MEDICAID, SELFPAY ==
--- NOTE | 2023-11-29 09:05 | VEIN_ITS ---
Patient Name: BLAKE CARDONA MR#: [id number] : 1985 Exam Date: 11/29/2023 Ordering Doctor: DR ILANA GUTIERRES M.D. RADIOLOGY REPORT PROCEDURE: VC EXT VENOUS RT LMTD COMPARISON: VC EXT VENOUS RT LMTD, 10/18/2023. INDICATIONS: I80.01 Phlebitis of superficial veins of right lower extremity TECHNIQUE: Lower extremity lind scale and Duplex Doppler evaluation of the deep venous system from the inguinal ligament through the calf veins. FINDINGS: REGION: Right lower extremity. THROMBI: Negative for DVT. Heat induced thrombus in right AASV 2.7 cm from SFJ and extends to mid thigh. COMPRESSIBILITY: Non-compressible segments corresponding to thrombus FLOW: Areas of no flow corresponding to thrombus OTHER: Multiple large varicose veins remain. CONCLUSION: 1. Successful post ablation occlusion of right anterior accessory saphenous vein. Dictated by: Nabeel Waters M.D. on 11/29/2023 at 10:47 Approved by: Nabeel Waters M.D. on 11/29/2023 at 10:48
--- NOTE | 2023-11-29 09:05 | VEIN_ITS ---
Patient Name: BLAKE CARDONA MR#: [id number] : 1985 Exam Date: 11/29/2023 Ordering Doctor: DR ILANA GUTIERRES M.D. RADIOLOGY REPORT PROCEDURE: [facility] EST LMTD VEIN CENTER - OFFICE VISIT FOLLOW UP COMPARISON: [facility], 11/01/2023. PROGRESS NOTES: The patient reports improvement in leg symptoms. There has been interval reduction in varicosities. The patient has followed our recommendations to walk 20-30 minutes once or twice per day since the procedure. Physical exam demonstrates decrease in varicosities of the leg. Persistent varicosities are identified along the legs bilaterally. Review of the ultrasound performed the same day demonstrates occlusive thrombus extending throughout the treated vein(s), see separate report, consistent with a successful ablation. No thrombus extending into or beyond the saphenofemoral junction. The patient expressed a desire to proceed with treatment of remaining incompetent varicosities. The patient was informed that treatment was a process and would require several procedures/sessions. [facility]: 1. Successful ablation of the right anterior accessory saphenous vein(s). 2. 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 PLAN: 1. Microfoam chemical ablation of bilateral lower extremity incompetent branch saphenous varicosities. Nurse notes, history and physical were reviewed and confirmed, see attached forms. The nurse was present throughout the physical exam and consultation Dictated by: Nabeel Waters M.D. on 11/29/2023 at 10:48 Approved by: Nabeel Waters M.D. on 11/29/2023 at 10:50
--- OUTSIDE RECORDS SUMMARY | 2023-11-29 09:09 | XMS_ITS | CCD ---
Author Name Unknown Address [address] [place] [address] Organization [facility] Care Team Providers Care Brickmason Apprentice Name Role Phone HOUSE, DR SKAGGS Primary Care Unavailable GABI EWBB Attending Unavailable GABI WEBB Consulting Unavailable GABI WEBB Admitting Unavailable Allergies Allergy Classification Reported Allergen(s) Allergy Type Date of Onset Reaction(s) Facility (1 source) Chlorhexidine Drug Allergy [facility] (1 source) Methocarbamol Drug Allergy [facility] Problems Problem Classification Problem Date [...] C-Peptide, Serum 3.6 ng/mL Normal 1.1-4.4 [facility] [place] [facility] Comment on above: Result Comment: C-Pe ptide reference interval is for fasting patients. Performed By: #### C PEPT #### [facility] [address], [place] [address] Dr. Fátima Keller DIRECT LDLon 10-01-2022 Cholesterol in LDL [Mass/Vol] 98 mg/dL Normal [facility] Comment on above: Performed By: #### L IPID, DLDL, TSH, RENAL #### [facility] [address], [place] [address] Dr. Fátima Keller DLDL NORMAL SEE BELOW Normal [facility] Comment on above: Result Comment: <100 mg/dl OPTIMAL 100 - 129 mg/dl NEAR OR ABOVE OPTIMAL 130 - 159 mg/dl BORDERLINE HIGH 160 - 189 mg/dl HIGH >190 mg/dl VERY HIGH Performed By: #### L IPID, DLDL, TSH, RENAL #### [facility] [address] [place] [address] [address] Ftáima Keller LIPID PROFILEon 10-01-2022 CHOL-HDL RATIO NORM SEE BELOW Normal [facility] Comment on above: Result Comment: 3.3 - 4.4 LOW RISK 4.4 - 7.1 AVERAGE RISK 7.1 - 11.0 MODERATE RISK >11.0 HIGH RISK Performed By: #### L IPID, DLDL, TSH, RENAL #### [facility] [address] [place] [address] [address] Fátima Keller Cholesterol [Mass/Vol] 320 mg/dL Critically high <=200 [facility] Comment on above: Performed By: #### L IPID, DLDL, TSH, RENAL #### [facility] [address] [address] [address] Fátima Keller Cholesterol in HDL [Mass/Vol] 38 mg/dL Critically low 40-60 [facility] Comment on above: Performed By: #### L IPID, DLDL, TSH, RENAL #### [facility] [address] [address] [address] Fátima Keller Cholesterol in LDL [Mass/Vol] 51.8 mg/dL Normal [facility] Comment on above: Performed By: #### L IPID, DLDL, TSH, RENAL #### [facility] [address] [place] [address] [address] Fátima Keller Cholesterol.total/ Cholesterol in HDL [Mass ratio] 8.4 {ratio} Normal [facility] Comment on above: Performed By: #### L IPID, DLDL, TSH, RENAL #### [facility] [address] [place] [address] [address] Fátima Keller HDL NORMAL > or = 60 mg/dl - LO W CARDIOVASCULAR RISK <40 mg/dl - HIGH CARDIOVASCULAR RISK Normal [facility] Comment on above: Performed By: #### L IPID, DLDL, TSH, RENAL #### [facility] [address] [address] [address] Fátima Keller LDL CALC NORMAL SEE BELOW Normal [facility] Comment on above: Result Comment: <100 mg/dl OPTIMAL 100 - 129 mg/dl NEAR OR ABOVE OPTIMAL 130 - 159 mg/dl BORDERLINE HIGH 160 - 189 mg/dl HIGH >190 mg/dl VERY HIGH Performed By: #### L IPID, DLDL, TSH, RENAL #### [facility] [address] [place] [address] [address] Fátima Keller Triglyceride [Mass/Vol] 1151 mg/dL Critically high <=150 [facility] Comment on above: Performed By: #### L IPID, DLDL, TSH, RENAL #### [facility] [address] [place] [address] Dr. Fátima Keller VLDL CALC 230.2 mg/dL Normal [facility] Comment on above: Performed By: #### L IPID, DLDL, TSH, RENAL #### [facility] [address] [place] [address] Dr. Fátima Keller MICROALB CREAT RATIO RANDOMo n 10-01-2022 mALB 32.2 mg/L Critically high <=30.0 [facility] Comment on above: Performed By: #### M CRR #### [facility] [address] [place] [address] Dr. Fátima Keller MALB CR RATIO 794.5 mg/g Critically high 0.0-29.9 [facility] Comment on above: Performed By: #### M CRR #### [facility] [address] [place] [address] [address] Fátima Keller MALB CR RATIO RANGE SEE BELOW Normal [facility] Comment on above: Result Comment: NO M ICROALBUMINURIA 0-29 MG/G CLINICAL MICROALBUMINURIA 30-300 MG/G MACROALBUMINURIA >300 MG/G Performed By: #### M CRR #### [facility] [address] [place] [address] [address] Fátima Keller URINE CREAT 40.53 mg/dL Normal 20.00-300.00 [facility] Comment on above: Performed By: #### M CRR #### [facility] [address] [address] [address] Fátima Keller RENAL FUNCTION PANELon 10-01 Albumin [Mass/Vol] 3.2 g/dL Critically low 3.4-5.0 [facility] Comment on above: Performed By: #### L IPID, DLDL, TSH, RENAL #### [facility] [address] [address] [address] Fátima Keller Calcium [Mass/Vol] 9.5 mg/dL Normal 8.5-10.1 [facility] Comment on above: Performed By: #### L IPID, DLDL, TSH, RENAL #### [facility] [address] [place] [address] Dr. Fátima Keller Chloride [Moles/Vol] 99 mmol/L Normal 98-107 [facility] Comment on above: Performed By: #### L IPID, DLDL, TSH, RENAL #### [facility] [address] [place] [address] [address] Fátima Keller CO2 [Moles/Vol] 24.6 mmol/L Normal 21.0-32.0 [facility] Comment on above: Performed By: #### L IPID, DLDL, TSH, RENAL #### [facility] [address] [place] [address] Dr. Fátima Keller Creatinine [Mass/Vol] 0.86 mg/dL Normal 0.70-1.30 [facility] Comment on above: Performed By: #### L IPID, DLDL, TSH, RENAL #### [facility] [address] [place] [address] [address] Fátima Keller EGFR-AF SURINAMESE >60 Normal >=60 [facility] [place] [facility] Comment on above: Performed By: #### L IPID, DLDL, TSH, RENAL #### [facility] [address] [place] [address] [address] Fátima Keller EGFR-NON AF SURINAMESE >60 Normal >=60 [facility] Comment on above: Performed By: #### L IPID, DLDL, TSH, RENAL #### [facility] [address] [place] [address] Dr. Fátima Keller Glucose [Mass/Vol] 222 mg/dL Critically high 74-106 T [facility] Comment on above: Performed By: #### L IPID, DLDL, TSH, RENAL #### [facility] [address] [place] [address] Dr. Fátima Keller Phosphate [Mass/Vol] 4.2 mg/dL Normal 2.6-4.7 [facility] Comment on above: Performed By: #### L IPID, DLDL, TSH, RENAL #### [facility] [address] [place] [address] Dr. Fátima Keller Potassium [Moles/Vol] 4.0 mmol/L Normal 3.5-5.1 [facility] Comment on above: Performed By: #### L IPID, DLDL, TSH, RENAL #### [facility] [address] [place] [address] Dr. Fátima Keller Sodium [Moles/Vol] 135 mmol/L Critically low 136-145 [facility] Comment on above: Performed By: #### L IPID, DLDL, TSH, RENAL #### [facility] [address] [place] [address] Dr. Fátima Keller Urea nitrogen [Mass/Vol] 22.0 mg/dL Critically high 7.0-18.0 [facility] Comment on above: Performed By: #### L IPID, DLDL, TSH, RENAL #### [facility] [address] [place] [address] Dr. Fátima Keller TSHon 10-01-2022 TSH 1.680 uIU/mL Normal 0.358-3.740 [facility] Comment on above: Performed By: #### L IPID, DLDL, TSH, RENAL #### [facility] [address] [place] [address] Dr. Fátima Keller VITAMIN D 25 OHon 10-01-2022 VIT D 25-OH 8.3 ng/mL Normal [facility] Comment on above: Performed By: #### V ITAD #### [facility] [address], [place] [address] Dr. Fátima Keller VIT D RANGES SEE BELOW Normal [facility] Comment on above: Result Comment: <20 ng/mL Vit D deficient 20 - <30 ng/mL Vit D insufficient 30 - 100 ng/mL Vit D sufficient >100 ng/mL Potential Toxicity Performed By: #### V ITAD #### [facility] [address], [place] [address] Dr. Fátima Keller Encounters Encounter Date Encounter Type Care Provider Facility Start: 10-01-2022 End: 10-02-[address] GILES RUIZ Facility: Payers Date Payer Category Payer Unknown [id number] 1957 Unknown [id number] Summary Purpose Family History No Family History Records Found Advance Directives No Advanced Directives Records Found Additional Source Comments (unrecognized sect ion and content) No Status Records Found INFORMATION SOURCE (unrecogn ized section and content) DATE CREATED AUTHOR 11/13/2022 [facility] FOR RECORDS PERTAINING TO PATIENTS WHO [...] BE BASED ON THE PRIMARY CLINICAL RECORDS. OYE! [facility]. provides no warranty or guarantee of the accuracy or completeness of information in this document.
== END 2023-11-29 09:05 | disposition home or self-care (01) ==
LOC: VC 09:05
PROVIDERS: PCP Radiology Diagnostic Radiology; Visit Provider Radiology Diagnostic Radiology
DX: I80.01 Phlebitis and thrombophlebitis of superficial vessels of right lower extremity (principal)
CPT/HCPCS: 93971; G0463

== ENCOUNTER 2023-12-13 08:48 | Outpatient (OUT) | payer MEDICAID, SELFPAY ==
--- NOTE | 2023-12-13 08:58 | VEIN_ITS ---
[address] [address] Patient Name: BLAKE CARDONA MRN: [id number] date: 1985 Sex: M Assigned Patient Location: Current Patient Location: Accession/Order Number: [id number] Exam Date: 12/13/2023 08:59 Report Date: 12/13/2023 10:22 At the request of: ILANA GUTIERRES Procedure: VC INJ Foam Sclerosant WUS ROLL HAULER PROCEDURE: VC INJ Foam Sclerosant WUS ROLL HAULER HISTORY: I83.813 painful varicose veins Pre-operative Diagnosis: CEAP class C4a venous insufficiency with pain, tenderness, edema and incompetent branch saphenous vein(s), chronic venous insufficiency right leg secondary to venous incompetence Post-operative Diagnosis: CEAP class C4a venous insufficiency with pain, tenderness, edema and incompetent branch saphenous vein(s), chronic venous insufficiency right leg secondary to venous incompetence Procedure Performed: 1. Ultrasound-guided microfoam chemical ablation with Varithenaregistered 2. Intraoperative ultrasound guidance Physician: Nabeel Waters M.D. Anesthesia: None Indications for Procedure: 38 year old male. Symptoms including dilated bulging veins, leg pain, cramping, spontaneous rupture of superficial vein through skin for many years despite conservative medical therapy including medical compression stockings, exercise and analgesics. Prior procedures include endovenous laser ablation. Multiple incompetent varicosities of the right leg. Duplex scan showed reflux and enlarged diameters up to 6 mm. The patient underwent informed consent including management options where the complications of infection, bleeding, pain, and skin injury were discussed. Particular attention was spent discussing thrombus extension and deep vein thrombosis as well as the possibility of pulmonary embolus and treatment with oral or injectable blood thinners. Procedure: The patient walked to the procedure room. All applicable staff donned appropriate apparel. A procedure timeout was performed to confirm correct patient, correct extremity, correct procedure, and correct room set-up including presence of all applicable supplies, devices, and drugs. A duplex ultrasound, performed by myself confirmed the location and incompetence of branch saphenous varicosities and their course was marked on the skin together with the dilated tributaries. The extent of treatment of the vein and the associated varicosities was determined through ultrasound mapping. The skin was prepped and then punctured with a butterfly needle and advanced under ultrasound guidance. The Varithenaregistered canister was activated and the canister was primed and purged as required in the instructions for use. Varithenaregistered was drawn into a sterile syringe. Varithenaregistered was slowly administered at 0.5-1.0 cc/second with close observation by ultrasound of its course in the vessels. Total volume utilized was: 15 mL (7 mL into a 5 mm varicosity distal medial lower leg; 8 mL into a 6 mm varicosity still upper medial lower leg). Following administration of Varithenaregistered the leg was elevated and the patient was asked to repeatedly dorsiflex the ankle to limit flow of Varithenaregistered into perforating veins. Once appropriate spasm had been confirmed in the treated veins, the vascular catheter was removed from the leg and light pressure was applied over the puncture site for hemostasis. The common femoral and deep superficial veins were then evaluated for flow and compressibility prior to dressing placement. The lower extremity was kept elevated at 45 degrees above the horizontal and cording material was applied over the saphenous segments and tributaries to allow for eccentric compression over the target vessels including the targeted saphenous vein(s). A multilayer dressing was applied consisting of foam pads, coban and thigh-high 20-30 mm Hg compression elastic support hose were placed on the patient. The leg was lowered only after compression had been applied and the patient was immediately ambulatory. The patient ambulated 10 minutes under supervision and was without apparent concerns at time of release. Post-care instructions include advising patient to keep post-treatment bandages in place and dry for 48 hours, avoid extended periods of inactivity, avoid heavy exercise for one week, wear compression stockings on the treated leg continuously for two weeks, to walk daily for 10 minutes over the next month. The patient was instructed to take an anti-inflammatory medicine as needed and to follow up for color duplex scan of the Saphenous veins, the treated branch saphenous varicosities, the adjacent deep veins, and additional treatment within 7 days. PERSONNEL: Andrews Dominguez RN Electronically authenticated by: NABEEL WATERS Date: 12/13/2023 10:22
== END 2023-12-13 08:49 | disposition home or self-care (01) ==
LOC: VC 08:56
PROVIDERS: PCP Radiology Diagnostic Radiology; Visit Provider Radiology Diagnostic Radiology
DX: I83.813 Varicose veins of bilateral lower extremities with pain (principal)
CPT/HCPCS: 36466

== ENCOUNTER 2023-12-20 08:22 | Outpatient (OUT) | payer MEDICAID, SELFPAY ==
--- NOTE | 2023-12-20 08:24 | VEIN_ITS ---
Patient Name: BLAKE CARDONA MR#: [id number] : 1985 Exam Date: 12/20/2023 Ordering Doctor: DR ILANA GUTIERRES M.D. RADIOLOGY REPORT PROCEDURE: [facility] C[facility] - OFFICE VISIT FOLLOW UP COMPARISON: [facility], 11/29/2023. PROGRESS NOTES: The patient reports improvement in leg symptoms. There has been interval reduction in varicosities. The patient has followed our recommendations to walk 20-30 minutes once or twice per day since the procedure. Physical exam demonstrates decrease in varicosities of the leg. Persistent varicosities are identified along the left leg. Review of the ultrasound performed the same day demonstrates occlusive thrombus extending throughout the treated vein(s), see separate report, consistent with a successful ablation. No thrombus extending into or beyond the saphenofemoral junction. The patient expressed a desire to proceed with treatment of remaining varicosities. The patient was informed that treatment was a process and would require several procedures/sessions. [facility]: 1. Successful ablation of the right leg treated branch saphenous vein(s). 2. Persistent varicose veins and lower extremity symptoms. PLAN: 1. Microfoam chemical ablation of left leg branch saphenous varicosities. Nurse notes, history and physical were reviewed and confirmed, see attached forms. The nurse was present throughout the physical exam and consultation Dictated by: Nabeel Waters M.D. on 12/20/2023 at 09:44 Approved by: Nabeel Waters M.D. on 12/20/2023 at 09:45
--- NOTE | 2023-12-20 08:24 | VEIN_ITS ---
Patient Name: BLAKE CARDONA MR#: [id number] : 1985 Exam Date: 12/20/2023 Ordering Doctor: DR ILANA GUTIERRES M.D. RADIOLOGY REPORT PROCEDURE: VC EXT VENOUS RT LMTD COMPARISON: VC EXT VENOUS RT LMTD, 11/29/2023. INDICATIONS: Phlebitis of superficial veins of rt lower extremity I80.01 TECHNIQUE: Lower extremity lind scale and Duplex Doppler evaluation of the deep venous system from the inguinal ligament through the calf veins. FINDINGS: REGION: Right lower extremity. THROMBI: Negative for DVT. Varithena induced thrombus visualized at dist/med calf, medial ankle, and dist/med thigh. COMPRESSIBILITY: Non-compressible segments corresponding to thrombus FLOW: Areas of no flow corresponding to thrombus OTHER: Multiple varicose veins remain in areas surrounded by thrombosed varicose veins. The largest remaining varicose vein is at 6.3mm with 0.6s reflux. CONCLUSION: 1. Successful post ablation occlusion of right leg treated branch saphenous varicosities. Dictated by: Nabeel Waters M.D. on 12/20/2023 at 09:43 Approved by: Nabeel Waters M.D. on 12/20/2023 at 09:44
== END 2023-12-20 08:23 | disposition home or self-care (01) ==
LOC: VC 08:22
PROVIDERS: PCP Radiology Diagnostic Radiology; Visit Provider Radiology Diagnostic Radiology
DX: I80.01 Phlebitis and thrombophlebitis of superficial vessels of right lower extremity (principal)
CPT/HCPCS: 93971; G0463

== ENCOUNTER 2024-01-03 08:55 | Outpatient (OUT) | payer MEDICAID, SELFPAY ==
--- NOTE | 2024-01-03 | VEIN_ITS ---
[address] [address] Patient Name: BLAKE CARDONA MRN: [id number] date: 1985 Sex: M Assigned Patient Location: Current Patient Location: Accession/Order Number: [id number] Exam Date: 01/03/2024 09:00 Report Date: 01/03/2024 12:43 At the request of: ILANA GUTIERRES Procedure: VC INJ Foam Sclerosant WUS WOOD CARVING LATHE OPERATOR PROCEDURE: VC INJ Foam Sclerosant WUS WOOD CARVING LATHE OPERATOR HISTORY: Pain due to varicose veins of bilateral legs I83.813 Pre-operative Diagnosis: CEAP class C4a venous insufficiency with pain, tenderness, edema and incompetent branch saphenous vein(s), chronic venous insufficiency left leg secondary to venous incompetence Post-operative Diagnosis: CEAP class C4a venous insufficiency with pain, tenderness, edema and incompetent branch saphenous vein(s), chronic venous insufficiency left leg secondary to venous incompetence Procedure Performed: 1. Ultrasound-guided microfoam chemical ablation with Varithenaregistered 2. Intraoperative ultrasound guidance Physician: Nabeel Waters M.D. Anesthesia: None Indications for Procedure: 38 year old male. Symptoms including lower extremity pain, heaviness, dilated bulging veins, swelling for many years despite conservative medical therapy including medical compression stockings, exercise and analgesics. Prior procedures include endovenous laser ablation and microfoam chemical ablation. Multiple incompetent varicosities of the left leg. Duplex scan showed reflux and enlarged diameters up to 5 mm. The patient underwent informed consent including management options where the complications of infection, bleeding, pain, and skin injury were discussed. Particular attention was spent discussing thrombus extension and deep vein thrombosis as well as the possibility of pulmonary embolus and treatment with oral or injectable blood thinners. Procedure: The patient walked to the procedure room. All applicable staff donned appropriate apparel. A procedure timeout was performed to confirm correct patient, correct extremity, correct procedure, and correct room set-up including presence of all applicable supplies, devices, and drugs. A duplex ultrasound, performed by myself confirmed the location and incompetence of branch saphenous varicosities and their course was marked on the skin together with the dilated tributaries. The extent of treatment of the vein and the associated varicosities was determined through ultrasound mapping. The skin was prepped and then punctured with a butterfly needle and advanced under ultrasound guidance. The Varithenaregistered canister was activated and the canister was primed and purged as required in the instructions for use. Varithenaregistered was drawn into a sterile syringe. Varithenaregistered was slowly administered at 0.5-1.0 cc/second with close observation by ultrasound of its course in the vessels. Total volume utilized was: 10 mL (5 mL into a 4 mm varicosity anterior distal lower left leg; 5 mL into a 5 mm varicosity distal medial thigh). Following administration of Varithenaregistered the leg was elevated and the patient was asked to repeatedly dorsiflex the ankle to limit flow of Varithenaregistered into perforating veins. Once appropriate spasm had been confirmed in the treated veins, the vascular catheter was removed from the leg and light pressure was applied over the puncture site for hemostasis. The common femoral and deep superficial veins were then evaluated for flow and compressibility prior to dressing placement. The lower extremity was kept elevated at 45 degrees above the horizontal and cording material was applied over the saphenous segments and tributaries to allow for eccentric compression over the target vessels including the targeted saphenous vein(s). A multilayer dressing was applied consisting of foam pads, coban and thigh-high 20-30 mm Hg compression elastic support hose were placed on the patient. The leg was lowered only after compression had been applied and the patient was immediately ambulatory. The patient ambulated 10 minutes under supervision and was without apparent concerns at time of release. Post-care instructions include advising patient to keep post-treatment bandages in place and dry for 48 hours, avoid extended periods of inactivity, avoid heavy exercise for one week, wear compression stockings on the treated leg continuously for two weeks, to walk daily for 10 minutes over the next month. The patient was instructed to take an anti-inflammatory medicine as needed and to follow up for color duplex scan of the Saphenous veins, the treated branch saphenous varicosities, the adjacent deep veins, and additional treatment within 7 days. PERSONNEL: Harmony Sage RN Electronically authenticated by: NABEEL WATERS Date: 01/03/2024 12:43
--- OUTSIDE RECORDS SUMMARY | 2024-01-03 09:05 | XMS_ITS | CCD ---
Author Organization [facility] Care Team Providers Care Implementation Director Name Role Phone HOUSE, DR SKAGGS Primary Care Unavailable GABI WEBB Attending Unavailable GABI WEBB Consulting Unavailable GABI WEBB Admitting Unavailable Allergies Allergy Classification Reported Allergen(s) Allergy Type Date of Onset Reaction(s) Facility (1 source) Chlorhexidine Drug Allergy [facility] (1 source) Methocarbamol Drug Allergy [facility] (1 source) Chlorhexidine Drug Allergy 12-16-2023 [facility] (1 source) Methocarbamol Drug Allergy 12-16-2023 [facility] Medications Current Medications Medication Drug Class(es) Dates Sig (Normalized) Sig (Original) [id number] 200 actuat albuterol 0.09 mg/actuat metered dose inhaler (1 source) beta2-Adrenergic Agonist Start: 12-16-2023 take 1 puff(s) by inhalation four times daily Albuterol Sulfate Active 2 PUFF INHALATION Four times daily 8.5 December 16, 2023 12:00am atenolol 50 mg oral tablet (1 source) beta-Adrenergic Kina Start: 12-16-2023 take 50 mg by mouth once daily Atenolol Active 50 MG PO Daily December 16, 2023 12:00am azithromycin 250 mg oral tablet (1 source) Macrolide Antimicrobial Start: 12-16-2023 take 2 tablets by mouth once daily, then take 1 tablet by mouth once daily Azithromycin (Zithromax Z-Hosea) 250 mg tablet Active 250 MG PO Daily 6 5 December 16, 2023 12:00am take 2 tabs today and 1 daily for the next 4 days 0.5 ml dulaglutide 3 mg/ml auto-injector (1 source) GLP-1 Receptor Agonist Start: 12-16-2023 Dulaglutide (Trulicity) 1.5 mg/0.5 mL pen injector Active MG SUBCUT December 16, 2023 12:00am empagliflozin 10 mg oral tablet (1 source) Sodium-Glucose Cotransporter 2 Inhibitor Start: 12-16-2023 take 1 tablet by mouth once daily Empagliflozin (Jardiance) 10 mg tablet Active 10 MG PO Daily December 16, 2023 12:00am glimepiride 4 mg oral tablet (1 source) Sulfonylurea Start: 12-16-2023 take 4 mg by mouth twice daily Glimepiride Active 4 MG PO Twice daily December 16, 2023 12:00am Insulin Detemir U-100 (Levemir Flexpen) 100 unit/mL (3 mL) insulin pen (1 source) Start: 12-16-2023 Insulin Detemir U-100 (Levemir Flexpen) 100 unit/mL (3 mL) insulin pen Active UNIT SUBCUT December 16, 2023 12:00am Problems Problem Classification Problem Date Documented Da [...] C-Peptide, Serum 3.6 ng/mL Normal 1.1-4.4 [facility] Comment on above: Result Comment: C-Pe ptide reference interval is for fasting patients. Performed By: #### C PEPT #### [facility] [address], [place] [address] Dr. Fátima Keller DIRECT LDLon 10-01-2022 Cholesterol in LDL [Mass/Vol] 98 mg/dL Normal [facility] Comment on above: Performed By: #### L IPID, DLDL, TSH, RENAL #### [facility] [address], [place] [address] Dr. Fátima Keller DLDL NORMAL SEE BELOW Normal [facility] Comment on above: Result Comment: <100 mg/dl OPTIMAL 100 - 129 mg/dl NEAR OR ABOVE OPTIMAL 130 - 159 mg/dl BORDERLINE HIGH 160 - 189 mg/dl HIGH >190 mg/dl VERY HIGH Performed By: #### L IPID, DLDL, TSH, RENAL #### [facility] [address] [place] [address] Dr. Fátima Keller LIPID PROFILEon 10-01-2022 CHOL-HDL RATIO NORM SEE BELOW Normal [facility] Comment on above: Result Comment: 3.3 - 4.4 LOW RISK 4.4 - 7.1 AVERAGE RISK 7.1 - 11.0 MODERATE RISK >11.0 HIGH RISK Performed By: #### L IPID, DLDL, TSH, RENAL #### [facility] [address] [place] [address] Dr. Fátima Keller Cholesterol [Mass/Vol] 320 mg/dL Critically high <=200 [facility] Comment on above: Performed By: #### L IPID, DLDL, TSH, RENAL #### [facility] [address] [address] [address] Fátima Keller Cholesterol in HDL [Mass/Vol] 38 mg/dL Critically low 40-60 [facility] Comment on above: Performed By: #### L IPID, DLDL, TSH, RENAL #### [facility] [address] [place] [address] Dr. Fátima Keller Cholesterol in LDL [Mass/Vol] 51.8 mg/dL Normal [facility] Comment on above: Performed By: #### L IPID, DLDL, TSH, RENAL #### [facility] [address] [place] [address] Dr. Fátima Keller Cholesterol.total/ Cholesterol in HDL [Mass ratio] 8.4 {ratio} Normal [facility] Comment on above: Performed By: #### L IPID, DLDL, TSH, RENAL #### [facility] [address] [place] [address] Dr. Fátima Keller HDL NORMAL > or = 60 mg/dl - LO W CARDIOVASCULAR RISK <40 mg/dl - HIGH CARDIOVASCULAR RISK Normal [facility] Comment on above: Performed By: #### L IPID, DLDL, TSH, RENAL #### [facility] [address] [address] [address] Fátima Keller LDL CALC NORMAL SEE BELOW Normal [facility] Comment on above: Result Comment: <100 mg/dl OPTIMAL 100 - 129 mg/dl NEAR OR ABOVE OPTIMAL 130 - 159 mg/dl BORDERLINE HIGH 160 - 189 mg/dl HIGH >190 mg/dl VERY HIGH Performed By: #### L IPID, DLDL, TSH, RENAL #### [facility] [address] [address] [address] Fátima Keller Triglyceride [Mass/Vol] 1151 mg/dL Critically high <=150 [facility] Comment on above: Performed By: #### L IPID, DLDL, TSH, RENAL #### [facility] [address] [address] [address] Fátima Keller VLDL CALC 230.2 mg/dL Normal [facility] Comment on above: Performed By: #### L IPID, DLDL, TSH, RENAL #### [facility] [address] [address] [address] Fátima Keller MICROALB CREAT RATIO RANDOMo n 10-01-2022 mALB 32.2 mg/L Critically high <=30.0 [facility] Comment on above: Performed By: #### M CRR #### [facility] [address] [place] [address] Dr. Fátima Keller MALB CR RATIO 794.5 mg/g Critically high 0.0-29.9 [facility] Comment on above: Performed By: #### M CRR #### [facility] [address] [place] [address] Dr. Fátima Keller MALB CR RATIO RANGE SEE BELOW Normal [facility] Comment on above: Result Comment: NO M ICROALBUMINURIA 0-29 MG/G CLINICAL MICROALBUMINURIA 30-300 MG/G MACROALBUMINURIA >300 MG/G Performed By: #### M CRR #### [facility] [address] [place] [address] Dr. Fátima Keller URINE CREAT 40.53 mg/dL Normal 20.00-300.00 [facility] Comment on above: Performed By: #### M CRR #### [facility] [address] [address] [address] Fátima Keller RENAL FUNCTION PANELon 10-01 Albumin [Mass/Vol] 3.2 g/dL Critically low 3.4-5.0 [facility] Comment on above: Performed By: #### L IPID, DLDL, TSH, RENAL #### [facility] [address] [address] [address] Fátima Keller Calcium [Mass/Vol] 9.5 mg/dL Normal 8.5-10.1 [facility] Comment on above: Performed By: #### L IPID, DLDL, TSH, RENAL #### [facility] [address] [place] [address] Dr. Fátima Keller Chloride [Moles/Vol] 99 mmol/L Normal 98-107 [facility] Comment on above: Performed By: #### L IPID, DLDL, TSH, RENAL #### [facility] [address] [place] [address] Dr. Fátima Keller CO2 [Moles/Vol] 24.6 mmol/L Normal 21.0-32.0 [facility] Comment on above: Performed By: #### L IPID, DLDL, TSH, RENAL #### [facility] [address] [place] [address] Dr. Fátima Keller Creatinine [Mass/Vol] 0.86 mg/dL Normal 0.70-1.30 [facility] Comment on above: Performed By: #### L IPID, DLDL, TSH, RENAL #### [facility] [address] [place] [address] Dr. Fátima Keller EGFR-AF MALAYSIAN >60 Normal >=60 [facility] Comment on above: Performed By: #### L IPID, DLDL, TSH, RENAL #### [facility] [address] [place] [address] Dr. Fátima Keller EGFR-NON AF MALAYSIAN >60 Normal >=60 [facility] Comment on above: Performed By: #### L IPID, DLDL, TSH, RENAL #### [facility] [address] [place] [address] Dr. Fátima Keller Glucose [Mass/Vol] 222 mg/dL Critically high 74-106 [facility] Comment on above: Performed By: #### L IPID, DLDL, TSH, RENAL #### [facility] [address] [place] [address] Dr. Fátima Keller Phosphate [Mass/Vol] 4.2 mg/dL Normal 2.6-4.7 [facility] Comment on above: Performed By: #### L IPID, DLDL, TSH, RENAL #### [facility] [address] [place] [address] Dr. Fátima Keller Potassium [Moles/Vol] 4.0 mmol/L Normal 3.5-5.1 [facility] Comment on above: Performed By: #### L IPID, DLDL, TSH, RENAL #### [facility] [address] [place] [address] Dr. Fátima Keller Sodium [Moles/Vol] 135 mmol/L Critically low 136-145 [facility] Comment on above: Performed By: #### L IPID, DLDL, TSH, RENAL #### [facility] [address] [place] [address] Dr. Fátima Keller Urea nitrogen [Mass/Vol] 22.0 mg/dL Critically high 7.0-18.0 [facility] Comment on above: Performed By: #### L IPID, DLDL, TSH, RENAL #### [facility] [address] [place] [address] Dr. Fátima Keller TSHon 10-01-2022 TSH 1.680 uIU/mL Normal 0.358-3.740 [facility] Comment on above: Performed By: #### L IPID, DLDL, TSH, RENAL #### [facility] [address] [place] [address] Dr. Fátima Keller VITAMIN D 25 OHon 10-01-2022 VIT D 25-OH 8.3 ng/mL Normal [facility] Comment on above: Performed By: #### V ITAD #### [facility] [address], [place] [address] Dr. Fátima Keller VIT D RANGES SEE BELOW Normal [facility] Comment on above: Result Comment: <20 ng/mL Vit D deficient 20 - <30 ng/mL Vit D insufficient 30 - 100 ng/mL Vit D sufficient >100 ng/mL Potential Toxicity Performed By: #### V ITAD #### [facility] [address] [id number] Fátima Keller Vital Signs Date Time Vital Sign Value Performing Clinician Faci lity 12-16-2023 12:20-0400 Body height 185.42 cm [facility] 12-16-2023 12:20-0400 Body mass index (BMI) [Ratio] 26.4 kg/m2 [facility] 12-16-2023 12:20-0400 Body temperature 98.3 [degF] [facility] 12-16-2023 12:20-0400 Body weight 90.71 kg [facility] 12-16-2023 12:20-0400 Heart rate 71 /min [facility] 12-16-2023 12:20-0400 Respiratory rate 18 /min [facility] 12-16-2023 12:20-0400 SaO2% (BldA) [Mass fraction] 99 % [facility] Encounters Encounter Date Encounter Type Care Provider Facility Start: 12-16-2023 End: 12-16-2023 ambulatory [facility] Work Phone: Start: 12-16-2023 End: 12-16-2023 Patient encounter procedure [facility] Work Phone: Start: 10-01-2022 End: 10-02-[address] GIELS RUZI Facility: Payers Date Payer Category Payer Unknown [id number] 1957 Unknown [id number] Medicaid [facility] Medicaid [id number] Social History Date Type Detail Facility Start: 12-16-2023 Tobacco smoking stat us MSIS Ex-smoker (finding) [facility] Start: 1985 Sex Assigned At Male F [facility] Evaluation note Note Date & Type Note Facility Evaluation note No assessment information availa ble [facility] Work Phone: Summary Purpose Family History Relationship Condition Age at Onset Recorded Date/T richard Not Specified Diabetes mellitus Unknown Heart disease Unknown father Malignant neoplasm Unknown Advance Directives Advance Directive Response Recorded Date/ Time Advance Directives No December 15 12:15pm Chief Complaint and Reason for Visit Chief Complaint Cough, Congestion Additional Source Comments (unrecognized sect ion and content) No Status Records Found INFORMATION SOURCE (unrecogn ized section and content) DATE CREATED AUTHOR 11/13/2022 [facility] Care Teams (unrecognized sec tion and content) Team Status: Active Member Role Status Dates NON STAFF Primary Care Provider Active Team Status: Inactive Member Role Status Dates NON STAFF Primary Care Provider Active Start: December 16, 2023 End: December 16, 2023 JENNIFER Nicholas Attending Provider Active S tart: December 16, 2023 End: December 16, 2023 Goals (unrecognized section and content) Goals may be documented in a n alternate section FOR RECORDS PERTAINING TO PATIENTS WHO ARE [...] BE BASED ON THE PRIMARY CLINICAL RECORDS. [facility] [employer] provides no warranty or guarantee of the accuracy or completeness of information in this document.
== END 2024-01-03 08:56 | disposition home or self-care (01) ==
LOC: VC 08:56
PROVIDERS: PCP Radiology Diagnostic Radiology; Visit Provider Radiology Diagnostic Radiology
DX: I83.813 Varicose veins of bilateral lower extremities with pain (principal)
CPT/HCPCS: 36466

== ENCOUNTER 2024-01-10 08:12 | Outpatient (OUT) | payer MEDICAID, SELFPAY ==
--- NOTE | 2024-01-10 08:14 | VEIN_ITS ---
Patient Name: BLAKE CARDONA MR#: [id number] : 1985 Exam Date: 01/10/2024 Ordering Doctor: DR PATRICK GRESHAM M.D. RADIOLOGY REPORT PROCEDURE: FACILITY EST LMTD VEIN CENTER - OFFICE VISIT FOLLOW UP COMPARISON: [facility] EST LMTD, 12/20/2023. FACILITY EST LMTD, 11/29/2023. PROGRESS NOTES: The patient reports no significant problems following micro foam chemical ablation of incompetent left leg varicose veins. The patient did have some pain in the medial right ankle related to prior injections however this vein did break open and decompressed the underlying coagulant giving the patient pain relief. The patient did wear his compression stockings. The patient did not require oral analgesics. Physical exam demonstrates multiple bilateral thrombosed varicose veins. There is a 5 mm scabbed in the medial right ankle related to the vein that decompressed the coagulant. No erythema or warmth to suggest cellulitis or thrombophlebitis. No active ulceration Review of the ultrasound performed the same day demonstrates occlusive thrombus extending throughout the treated left leg varicose veins. No deep vein thrombus. The patient expressed a desire to proceed with treatment of incompetent right leg varicose veins with micro foam chemical ablation. VEIN/ Facility EST LMTD IMPRESSION: 1. Successful ablation of treated left leg varicose veins 2. Persistent bilateral incompetent varicose veins. PLAN: Micro foam chemical ablation right leg incompetent varicose veins Nurse notes, history and physical were reviewed and confirmed, see attached forms. The nurse was present throughout the physical exam and consultation Dictated by: Patrick Gresham MD on 01/10/2024 at 09:11 Approved by: Patrick Gresham MD on 01/10/2024 at 09:17
--- NOTE | 2024-01-10 08:14 | VEIN_ITS ---
Patient Name: BLAKE CARDONA MR#: [id number] : 1985 Exam Date: 01/10/2024 Ordering Doctor: DR PATRICK GRESHAM M.D. RADIOLOGY REPORT PROCEDURE: VC EXT VENOUS LT LIMITED COMPARISON: VC EXT VENOUS LT LIMITED, 11/01/2023. INDICATIONS: Phlebitis of superficial veins of left lower extremity I80.02 TECHNIQUE: Lower extremity lind scale and Duplex Doppler evaluation of the deep venous system from the inguinal ligament through the calf veins. FINDINGS: REGION: Left lower extremity. THROMBI: Negative for DVT. Chemically induced thrombus in left leg varicose veins. COMPRESSIBILITY: Non-compressible segments corresponding to thrombus FLOW: Areas of no flow corresponding to thrombus OTHER: Multiple patent varicose veins remain. Varicose veins mid anterior thigh are connected to tableau developer in proximal thigh that measures 3.4 mm. Patent varicose vein proximal/lateral lower leg measures 6.0 mm. CONCLUSION: Post ablation occlusion of treated left leg incompetent varicose veins with residual patent varicose veins measuring up to 6 mm Dictated by: Patrick Gresham MD on 01/10/2024 at 09:07 Approved by: Patrick Gresham MD on 01/10/2024 at 09:08
--- OUTSIDE RECORDS SUMMARY | 2024-01-10 08:24 | XMS_ITS | CCD ---
Author Organization [facility] Care Team Providers Care Night Club Manager Name Role Phone HOUSE, DR SKAGGS Primary Care Unavailable GABI WEBB Attending Unavailable GABI WEBB Consulting Unavailable GABI WEBB Admitting Unavailable Allergies Allergy Classification Reported Allergen(s) Allergy Type Date of Onset Reaction(s) Facility (1 source) Chlorhexidine Drug Allergy [facility] (1 source) Methocarbamol Drug Allergy [facility] (1 source) Chlorhexidine Drug Allergy 12-16-2023 [facility] (1 source) Methocarbamol Drug Allergy 12-16-2023 [facility] Medications Current Medications Medication Drug Class(es) Dates Sig (Normalized) Sig (Original) [id number] 200 actuat albuterol 0.09 mg/actuat metered dose [...] C-Peptide, Serum 3.6 ng/mL Normal 1.1-4.4 [facility] Comment on above: Result Comment: C-Pe ptide reference interval is for fasting patients. Performed By: #### C PEPT #### [facility] [address] [place], [place] [address] Dr. Fátima Keller DIRECT LDLon 10-01-2022 Cholesterol in LDL [Mass/Vol] 98 mg/dL Normal [facility] Comment on above: Performed By: #### L IPID, DLDL, TSH, RENAL #### [facility] [address] [place], [place] [address] Dr. Fátima Keller DLDL NORMAL SEE BELOW Normal [facility] Comment on above: Result Comment: <100 mg/dl OPTIMAL 100 - 129 mg/dl NEAR OR ABOVE OPTIMAL 130 - 159 mg/dl BORDERLINE HIGH 160 - 189 mg/dl HIGH >190 mg/dl VERY HIGH Performed By: #### L IPID, DLDL, TSH, RENAL #### [facility] [address] [place] [address] Dr. Fátima Keller LIPID PROFILEon 10-01-2022 CHOL-HDL RATIO NORM SEE BELOW Normal [facility] Comment on above: Result Comment: 3.3 - 4.4 LOW RISK 4.4 - 7.1 AVERAGE RISK 7.1 - 11.0 MODERATE RISK >11.0 HIGH RISK Performed By: #### L IPID, DLDL, TSH, RENAL #### [facility] [address] [place] [address] Dr. Fátima Keller Cholesterol [Mass/Vol] 320 mg/dL Critically high <=200 [facility] Comment on above: Performed By: #### L IPID, DLDL, TSH, RENAL #### [facility] [address] [place] [address] [address] Fátima Keller Cholesterol in HDL [Mass/Vol] 38 mg/dL Critically low 40-60 [facility] Comment on above: Performed By: #### L IPID, DLDL, TSH, RENAL #### [facility] [address] [place] [address] Dr. Fátima Keller Cholesterol in LDL [Mass/Vol] 51.8 mg/dL Normal [facility] Comment on above: Performed By: #### L IPID, DLDL, TSH, RENAL #### [facility] [address] [place] [address] Dr. Fátima Keller Cholesterol.total/ Cholesterol in HDL [Mass ratio] 8.4 {ratio} Normal [facility] Comment on above: Performed By: #### L IPID, DLDL, TSH, RENAL #### [facility] [address] [place] [address] Dr. Fátima Keller HDL NORMAL > or = 60 mg/dl - LO W CARDIOVASCULAR RISK <40 mg/dl - HIGH CARDIOVASCULAR RISK Normal [facility] Comment on above: Performed By: #### L IPID, DLDL, TSH, RENAL #### [facility] [address] [place] [address] [address] Fátima Keller LDL CALC NORMAL SEE BELOW Normal [facility] Comment on above: Result Comment: <100 mg/dl OPTIMAL 100 - 129 mg/dl NEAR OR ABOVE OPTIMAL 130 - 159 mg/dl BORDERLINE HIGH 160 - 189 mg/dl HIGH >190 mg/dl VERY HIGH Performed By: #### L IPID, DLDL, TSH, RENAL #### [facility] [address] [address] [address] Fátima Keller Triglyceride [Mass/Vol] 1151 mg/dL Critically high <=150 [facility] Comment on above: Performed By: #### L IPID, DLDL, TSH, RENAL #### [facility] [address] [address] [address] Fátima Keller VLDL CALC 230.2 mg/dL Normal [facility] Comment on above: Performed By: #### L IPID, DLDL, TSH, RENAL #### [facility] [address] [address] [address] Fátima Keller MICROALB CREAT RATIO RANDOMo n 10-01-2022 mALB 32.2 mg/L Critically high <=30.0 [facility] Comment on above: Performed By: #### M CRR #### [facility] [address] [place] [address] Dr. Fátima Keller MALB CR RATIO 794.5 mg/g Critically high 0.0-29.9 [facility] Comment on above: Performed By: #### M CRR #### [facility] [address] [place] [address] Dr. Fátima Keller MALB CR RATIO RANGE SEE BELOW Normal [facility] Comment on above: Result Comment: NO M ICROALBUMINURIA 0-29 MG/G CLINICAL MICROALBUMINURIA 30-300 MG/G MACROALBUMINURIA >300 MG/G Performed By: #### M CRR #### [facility] [address] [place] [address] Dr. Fátima Keller URINE CREAT 40.53 mg/dL Normal 20.00-300.00 [facility] Comment on above: Performed By: #### M CRR #### [facility] [address] [address] [address] Fátima Keller RENAL FUNCTION PANELon 10-01 Albumin [Mass/Vol] 3.2 g/dL Critically low 3.4-5.0 Th e [facility] Comment on above: Performed By: #### L IPID, DLDL, TSH, RENAL #### [facility] [address] [address] [address] Fátima Keller Calcium [Mass/Vol] 9.5 mg/dL Normal 8.5-10.1 [facility] Comment on above: Performed By: #### L IPID, DLDL, TSH, RENAL #### [facility] [address] [place] [address] Dr. Fátima Keller Chloride [Moles/Vol] 99 mmol/L Normal 98-107 [facility] Comment on above: Performed By: #### L IPID, DLDL, TSH, RENAL #### [facility] [address] [place] [address] Dr. Fátima Keller CO2 [Moles/Vol] 24.6 mmol/L Normal 21.0-32.0 [facility] Comment on above: Performed By: #### L IPID, DLDL, TSH, RENAL #### [facility] [address] [place] [address] Dr. Fátima Keller Creatinine [Mass/Vol] 0.86 mg/dL Normal 0.70-1.30 [facility] Comment on above: Performed By: #### L IPID, DLDL, TSH, RENAL #### [facility] [address] [place] [address] Dr. Fátima Keller EGFR-AF LAO >60 Normal >=60 [facility] Comment on above: Performed By: #### L IPID, DLDL, TSH, RENAL #### [facility] [address] [place] [address] Dr. Fátima Keller EGFR-NON AF LAO >60 Normal >=60 [facility] Comment on above: Performed By: #### L IPID, DLDL, TSH, RENAL #### [facility] [address] [place] [address] Dr. Fátima Keller Glucose [Mass/Vol] 222 mg/dL Critically high 74-106 [facility] Comment on above: Performed By: #### L IPID, DLDL, TSH, RENAL #### [facility] [address] [place] [address] Dr. Fátima Keller Phosphate [Mass/Vol] 4.2 mg/dL Normal 2.6-4.7 [facility] Comment on above: Performed By: #### L IPID, DLDL, TSH, RENAL #### [facility] [address] [place] [address] Dr. Fátima Keller Potassium [Moles/Vol] 4.0 mmol/L Normal 3.5-5.1 [facility] Comment on above: Performed By: #### L IPID, DLDL, TSH, RENAL #### [facility] [address] [place] [address] Dr. Fátima Keller Sodium [Moles/Vol] 135 mmol/L Critically low 136-145 [facility] Comment on above: Performed By: #### L IPID, DLDL, TSH, RENAL #### [facility] [address] [place] [address] Dr. Fátima Keller Urea nitrogen [Mass/Vol] 22.0 mg/dL Critically high 7.0-18.0 [facility] Comment on above: Performed By: #### L IPID, DLDL, TSH, RENAL #### [facility] [address] [place] [address] Dr. Fátima Keller TSHon 10-01-2022 TSH 1.680 uIU/mL Normal 0.358-3.740 [facility] Comment on above: Performed By: #### L IPID, DLDL, TSH, RENAL #### [facility] [address] [place] [address] Dr. Fátima Keller VITAMIN D 25 OHon 10-01-2022 VIT D 25-OH 8.3 ng/mL Normal [facility] Comment on above: Performed By: #### V ITAD #### [facility] [address] [place], [place] [address] Dr. Fátima Keller VIT D RANGES SEE BELOW Normal [facility] Comment on above: Result Comment: <20 ng/mL Vit D deficient 20 - <30 ng/mL Vit D insufficient 30 - 100 ng/mL Vit D sufficient >100 ng/mL Potential Toxicity Performed By: #### V ITAD #### [facility] [address] [id number] Fátima Keller Vital Signs Date Time Vital Sign Value Performing Clinician Faci lity 12-16-2023 12:20-0400 Body height 185.42 cm [facility] 12-16-2023 12:20-0400 Body mass index (BMI) [Ratio] 26.4 kg/m2 [facility] 12-16-2023 12:20-0400 Body temperature 98.3 [degF] [facility] 12-16-2023 12:20-0400 Body weight 90.71 kg [facility] 12-16-2023 12:20-0400 Heart rate 71 /min [facility] 12-16-2023 12:20-0400 Respiratory rate 18 /min [facility] 12-16-2023 12:20-0400 SaO2% (BldA) [Mass fraction] 99 % [facility] Encounters Encounter Date Encounter Type Care Provider Facility Start: 12-16-2023 End: 12-16-2023 ambulatory [facility] Work Phone: Start: 12-16-2023 End: 12-16-2023 Patient encounter procedure [facility] Ur[facility] Care Luis E Work Phone: Start: 10-01-2022 End: 10-02-[address] GILES RUIZ Facility: Payers Date Payer Category Payer Unknown [id number] [id number] [id number] 1957 Unknown [id number] Medicaid [facility] Medicaid [id number] Social History Date Type Detail Facility Start: 12-16-2023 Tobacco smoking stat us KYIS Ex-smoker (finding) [facility] Start: 1985 Sex Assigned At Male [facility] Evaluation note Note Date & Type Note Facility Evaluation note No assessment information availa ble [facility] Work Phone: Summary Purpose Family History [...] content) DATE CREATED AUTHOR 11/13/2022 [facility] Care Teams (unrecognized sec tion and [...] BE BASED ON THE PRIMARY CLINICAL RECORDS. [facility] [employer] provides no warranty or guarantee of the accuracy or completeness of information in this document.
== END 2024-01-10 08:13 | disposition home or self-care (01) ==
LOC: VC 08:13
PROVIDERS: PCP Radiology Diagnostic Radiology; Visit Provider Radiology Diagnostic Radiology
DX: I80.02 Phlebitis and thrombophlebitis of superficial vessels of left lower extremity (principal)
CPT/HCPCS: 93971; G0463

== ENCOUNTER 2024-01-17 10:40 | Outpatient (OUT) | payer MEDICAID, SELFPAY ==
--- NOTE | 2024-01-17 10:48 | VEIN_ITS ---
The [address] [address] Patient Name: BLAKE CARDONA MRN: [id number] date: 1985 Sex: M Assigned Patient Location: Current Patient Location: Accession/Order Number: [id number] Exam Date: 01/17/2024 10:48 Report Date: 01/17/2024 12:17 At the request of: ILANA GUTIERRES Procedure: VC INJ Foam Sclerosant WUS MUSSEL OPENER PROCEDURE: VC INJ Foam Sclerosant WUS MUSSEL OPENER, right leg COMPARISON: None. HISTORY: I83.813 Pain due to varicose veins of bilateral legs Pre-operative Diagnosis: CEAP class C4a venous insufficiency with pain, tenderness, edema and incompetent right varicose and saphenous vein(s), chronic venous insufficiency right leg secondary to venous incompetence Post-operative Diagnosis: CEAP class C4a venous insufficiency with pain, tenderness, edema and incompetent right varicose and saphenous vein(s), chronic venous insufficiency right leg secondary to venous incompetence Procedure Performed: 1. Ultrasound-guided microfoam chemical ablation with Varithenaregistered 2. Intraoperative ultrasound guidance Anesthesia: None Indications for Procedure: 38-year-old male who presents with a long history of varicose veins with pain and swelling with hemosiderin staining and skin thickening. The patient failed conservative medical therapy including medical compression stockings, exercise and analgesics. Prior procedures include endovenous laser ablation and Microfoam chemical ablation. Multiple incompetent varicosities of the right leg. Duplex scan showed reflux and enlarged diameters up to 8 mm. The patient underwent informed consent including management options where the complications of infection, bleeding, pain, and skin injury were discussed. Particular attention was spent discussing thrombus extension and deep vein thrombosis as well as the possibility of pulmonary embolus and treatment with oral or injectable blood thinners. Procedure: The patient walked to the procedure room. All applicable staff donned appropriate apparel. A procedure timeout was performed to confirm correct patient, correct extremity, correct procedure, and correct room set-up including presence of all applicable supplies, devices, and drugs. A duplex ultrasound, performed by myself confirmed the location and incompetence of branch saphenous varicosities and their course was marked on the skin together with the dilated tributaries. The extent of treatment of the vein and the associated varicosities was determined through ultrasound mapping. The skin was prepped and then punctured with a butterfly needle and advanced under ultrasound guidance. The Varithenaregistered canister was activated and the canister was primed and purged as required in the instructions for use. Varithenaregistered was drawn into a sterile syringe. The following injections were made: 4 cc injected into a right distal medial lower leg 4 mm varicose vein 3 cc injected into a right posterior mid lower leg 4 mm varicose vein 2 cc injected into a right distal medial thigh 5 mm varicose vein 6 cc injected into right medial mid thigh 8 mm varicose vein Varithenaregistered was slowly administered at 0.5-1.0 cc/second with close observation by ultrasound of its course in the vessels. Total volume utilized was: 15cc. Following administration of Varithenaregistered the leg was elevated and the patient was asked to repeatedly dorsiflex the ankle to limit flow of Varithenaregistered into perforating veins. Once appropriate spasm had been confirmed in the treated veins, the vascular catheter was removed from the leg and light pressure was applied over the puncture site for hemostasis. The common femoral and deep superficial veins were then evaluated for flow and compressibility prior to dressing placement. The lower extremity was kept elevated at 45 degrees above the horizontal and cording material was applied over the saphenous segments and tributaries to allow for eccentric compression over the target vessels including the targeted saphenous vein(s). A multilayer dressing was applied consisting of foam pads, coban and thigh-high 20-30 mm Hg compression elastic support hose were placed on the patient. The leg was lowered only after compression had been applied and the patient was immediately ambulatory. The patient ambulated 10 minutes under supervision and was without apparent concerns at time of release. Post-care instructions include advising patient to keep post-treatment bandages in place and dry for 48 hours, avoid extended periods of inactivity, avoid heavy exercise for one week, wear compression stockings on the treated leg continuously for two weeks, to walk daily for 10 minutes over the next month. The patient was instructed to take an anti-inflammatory medicine as needed and to follow up for color duplex scan of the Saphenous veins, the treated branch saphenous varicosities, the adjacent deep veins, and additional treatment within 7 days. PERSONNEL: Andrews Dominguez RN Electronically authenticated by: ILANA GUTIERRES Date: 01/17/2024 12:17
--- OUTSIDE RECORDS SUMMARY | 2024-01-17 10:48 | XMS_ITS | CCD ---
Author Organization [facility] Care Team Providers Care Band Scroll Saw Operator Name Role Phone HOUSE, DR SKAGGS Primary Care Unavailable GABI WEBB Attending Unavailable GABI WEBB Consulting Unavailable GABI WEBB Admitting Unavailable Allergies Allergy Classification Reported Allergen(s) Allergy Type Date of Onset Reaction(s) Facility (1 source) Chlorhexidine Drug Allergy [facility] (1 source) Methocarbamol Drug Allergy [facility] (1 source) Chlorhexidine Drug Allergy 12-16-2023 [facility] (1 source) Methocarbamol Drug Allergy 12-16-2023 [facility] Medications Current Medications Medication Drug Class(es) Dates Sig (Normalized) Sig (Original) [id number] 200 actuat albuterol 0.09 mg/actuat metered dose [...] C-Peptide, Serum 3.6 ng/mL Normal 1.1-4.4 The [facility] Comment on above: Result Comment: C-Pe ptide reference interval is for fasting patients. Performed By: #### C PEPT #### [facility] [address] [place], [place] [address] Dr. Fátima Keller DIRECT LDLon 10-01-2022 Cholesterol in LDL [Mass/Vol] 98 mg/dL Normal [facility] Comment on above: Performed By: #### L IPID, DLDL, TSH, RENAL #### [facility] [address] [place], [place] [address] Dr. Fátima Keller DLDL NORMAL SEE BELOW Normal [facility] Comment on above: Result Comment: <100 mg/dl OPTIMAL 100 - 129 mg/dl NEAR OR ABOVE OPTIMAL 130 - 159 mg/dl BORDERLINE HIGH 160 - 189 mg/dl HIGH >190 mg/dl VERY HIGH Performed By: #### L IPID, DLDL, TSH, RENAL #### [facility] [address] [place] [address] Dr. Fátima Keller LIPID PROFILEon 10-01-2022 CHOL-HDL RATIO NORM SEE BELOW Normal [facility] Comment on above: Result Comment: 3.3 - 4.4 LOW RISK 4.4 - 7.1 AVERAGE RISK 7.1 - 11.0 MODERATE RISK >11.0 HIGH RISK Performed By: #### L IPID, DLDL, TSH, RENAL #### [facility] [address] [place] [address] Dr. Fátima Keller Cholesterol [Mass/Vol] 320 mg/dL Critically high <=200 [facility] Comment on above: Performed By: #### L IPID, DLDL, TSH, RENAL #### [facility] [address] [place] [address] [address] Fátima Keller Cholesterol in HDL [Mass/Vol] 38 mg/dL Critically low 40-60 [facility] Comment on above: Performed By: #### L IPID, DLDL, TSH, RENAL #### [facility] [address] [place] [address] Dr. Fátima Keller Cholesterol in LDL [Mass/Vol] 51.8 mg/dL Normal [facility] Comment on above: Performed By: #### L IPID, DLDL, TSH, RENAL #### [facility] [address] [place] [address] Dr. Fátima Keller Cholesterol.total/ Cholesterol in HDL [Mass ratio] 8.4 {ratio} Normal [facility] Comment on above: Performed By: #### L IPID, DLDL, TSH, RENAL #### [facility] [address] [place] [address] Dr. Fátiam Keller HDL NORMAL > or = 60 mg/dl - LO W CARDIOVASCULAR RISK <40 mg/dl - HIGH CARDIOVASCULAR RISK Normal [facility] Comment on above: Performed By: #### L IPID, DLDL, TSH, RENAL #### [facility] [address] [place] [address] [address] Fátima Keller LDL CALC NORMAL SEE BELOW Normal [facility] Comment on above: Result Comment: <100 mg/dl OPTIMAL 100 - 129 mg/dl NEAR OR ABOVE OPTIMAL 130 - 159 mg/dl BORDERLINE HIGH 160 - 189 mg/dl HIGH >190 mg/dl VERY HIGH Performed By: #### L IPID, DLDL, TSH, RENAL #### [facility] [address] [place] [address] [address] Fátima Keller Triglyceride [Mass/Vol] 1151 mg/dL Critically high <=150 [facility] Comment on above: Performed By: #### L IPID, DLDL, TSH, RENAL #### [facility] [address] [place] [address] [address] Fátima Keller VLDL CALC 230.2 mg/dL Normal [facility] Comment on above: Performed By: #### L IPID, DLDL, TSH, RENAL #### [facility] [address] [place] [address] [address] Fátima Keller MICROALB CREAT RATIO RANDOMo n 10-01-2022 mALB 32.2 mg/L Critically high <=30.0 [facility] Comment on above: Performed By: #### M CRR #### [facility] [address] [place] [address] Dr. Fátima Keller MALB CR RATIO 794.5 mg/g Critically high 0.0-29.9 [facility] Comment on above: Performed By: #### M CRR #### [facility] [address] [place] [address] Dr. Fátima Keller MALB CR RATIO RANGE SEE BELOW Normal [facility] Comment on above: Result Comment: NO M ICROALBUMINURIA 0-29 MG/G CLINICAL MICROALBUMINURIA 30-300 MG/G MACROALBUMINURIA >300 MG/G Performed By: #### M CRR #### [facility] [address] [place] [address] Dr. Fátima Keller URINE CREAT 40.53 mg/dL Normal 20.00-300.00 [facility] Comment on above: Performed By: #### M CRR #### [facility] [address] [place] [address] [address] Fátima Keller RENAL FUNCTION PANELon 10-01 Albumin [Mass/Vol] 3.2 g/dL Critically low 3.4-5.0 Th e [facility] Comment on above: Performed By: #### L IPID, DLDL, TSH, RENAL #### [facility] [address] [address] [address] Fátima Keller Calcium [Mass/Vol] 9.5 mg/dL Normal 8.5-10.1 [facility] Comment on above: Performed By: #### L IPID, DLDL, TSH, RENAL #### [facility] [address] [place] [address] Dr. Fátima Keller Chloride [Moles/Vol] 99 mmol/L Normal 98-107 [facility] Comment on above: Performed By: #### L IPID, DLDL, TSH, RENAL #### [facility] [address] [place] [address] Dr. Fátima Keller CO2 [Moles/Vol] 24.6 mmol/L Normal 21.0-32.0 [facility] Comment on above: Performed By: #### L IPID, DLDL, TSH, RENAL #### [facility] [address] [place] [address] Dr. Fátima Keller Creatinine [Mass/Vol] 0.86 mg/dL Normal 0.70-1.30 [facility] Comment on above: Performed By: #### L IPID, DLDL, TSH, RENAL #### [facility] [address] [place] [address] Dr. Fátima Keller EGFR-AF SAO TOMEAN >60 Normal >=60 [facility] Comment on above: Performed By: #### L IPID, DLDL, TSH, RENAL #### [facility] [address] [place] [address] Dr. Fátima Keller EGFR-NON AF SAO TOMEAN >60 Normal >=60 [facility] Comment on above: Performed By: #### L IPID, DLDL, TSH, RENAL #### [facility] [address] [place] [address] Dr. Fátima Keller Glucose [Mass/Vol] 222 mg/dL Critically high 74-106 T [facility] Comment on above: Performed By: #### L IPID, DLDL, TSH, RENAL #### [facility] [address] [place] [address] Dr. Fátima Keller Phosphate [Mass/Vol] 4.2 mg/dL Normal 2.6-4.7 [facility] Comment on above: Performed By: #### L IPID, DLDL, TSH, RENAL #### [facility] [address] [place] [address] Dr. Fátima Keller Potassium [Moles/Vol] 4.0 mmol/L Normal 3.5-5.1 [facility] Comment on above: Performed By: #### L IPID, DLDL, TSH, RENAL #### [facility] [address] [place] [address] Dr. Fátima Keller Sodium [Moles/Vol] 135 mmol/L Critically low 136-145 [facility] Comment on above: Performed By: #### L IPID, DLDL, TSH, RENAL #### [facility] [address] [place] [address] Dr. Fátima Keller Urea nitrogen [Mass/Vol] 22.0 mg/dL Critically high 7.0-18.0 [facility] Comment on above: Performed By: #### L IPID, DLDL, TSH, RENAL #### [facility] [address] [place] [address] Dr. Fátima Keller TSHon 10-01-2022 TSH 1.680 uIU/mL Normal 0.358-3.740 [facility] Comment on above: Performed By: #### L IPID, DLDL, TSH, RENAL #### [facility] [address] [place] [address] Dr. Fátima Keller VITAMIN D 25 OHon 10-01-2022 VIT D 25-OH 8.3 ng/mL Normal [facility] Comment on above: Performed By: #### V ITAD #### [facility] [address] [place], [place] [address] Dr. Fátima Keller VIT D RANGES SEE BELOW Normal [facility] Comment on above: Result Comment: <20 ng/mL Vit D deficient 20 - <30 ng/mL Vit D insufficient 30 - 100 ng/mL Vit D sufficient >100 ng/mL Potential Toxicity Performed By: #### V ITAD #### [facility] [id number] Fátima Keller Vital Signs Date Time Vital Sign Value Performing Clinician Faci lity 12-16-2023 12:20-0400 Body height 185.42 cm [facility] 12-16-2023 12:20-0400 Body mass index (BMI) [Ratio] 26.4 kg/m2 [facility] 12-16-2023 12:20-0400 Body temperature 98.3 [degF] [facility] 12-16-2023 12:20-0400 Body weight 90.71 kg [facility] 12-16-2023 12:20-0400 Heart rate 71 /min [facility] 12-16-2023 12:20-0400 Respiratory rate 18 /min [facility] 12-16-2023 12:20-0400 SaO2% (BldA) [Mass fraction] 99 % [facility] Encounters Encounter Date Encounter Type Care Provider Facility Start: 12-16-2023 End: 12-16-2023 ambulatory [facility] Work Phone: Start: 12-16-2023 End: 12-16-2023 Patient encounter procedure [facility] Urgent Care Luis E Work Phone: Start: 10-01-2022 End: 10-02-[address] GILES RUIZ Facility: Payers Date Payer Category Payer Unknown [id number] [id number] [id number] 1957 Unknown [id number] Medicaid [facility] Medicaid [id number] Social History Date Type Detail Facility Start: 12-16-2023 Tobacco smoking stat us MSIS Ex-smoker (finding) [facility] Start: 1985 Sex Assigned At Male [facility] Evaluation note Note Date & Type Note Facility Evaluation note No assessment information availa ble [facility] Work Phone: Summary Purpose Family History Relationship [...] content) DATE CREATED AUTHOR 11/13/2022 [facility] Care Teams (unrecognized sec tion and content) [...] BE BASED ON THE PRIMARY CLINICAL RECORDS. [facility] [employer] provides no warranty or guarantee of the accuracy or completeness of information in this document.
== END 2024-01-17 10:41 | disposition home or self-care (01) ==
LOC: VC 10:44
PROVIDERS: PCP Radiology Diagnostic Radiology; Visit Provider Radiology Diagnostic Radiology
DX: I83.813 Varicose veins of bilateral lower extremities with pain (principal)
CPT/HCPCS: 36466

== ENCOUNTER 2024-01-24 09:02 | Outpatient (OUT) | payer MEDICAID, SELFPAY ==
--- NOTE | 2024-01-24 09:04 | VEIN_ITS ---
Patient Name: BLAKE CARDONA MR#: [id number] : 1985 Exam Date: 01/24/2024 Ordering Doctor: DR ILANA GUTIERRES M.D. RADIOLOGY REPORT PROCEDURE: [facility] - OFFICE VISIT FOLLOW UP [facility] PROGRESS NOTES: The patient reports improvement in leg symptoms. There has been interval reduction in varicosities. The patient has followed our recommendations to walk 20-30 minutes once or twice per day since the procedure. Physical exam demonstrates decrease in varicosities of the leg. Persistent varicosities are identified along the legs bilaterally. Review of the ultrasound performed the same day demonstrates occlusive thrombus extending throughout the treated vein(s), see separate report, consistent with a successful ablation. No thrombus extending into or beyond the saphenofemoral junction. Short segment of thrombus within right posterior tibial vein. The patient expressed a desire to proceed with treatment of remaining incompetent varicosities. The patient was informed that treatment was a process and would require several procedures/sessions. [facility] IM[facility]: 1. Successful ablation of the right leg treated branch saphenous vein(s). 2. Persistent varicose veins and lower extremity symptoms. 3. Segment of thrombus within right posterior tibial vein. PLAN: 1. 325 mg aspirin once per day for 10 days for treatment of right posterior tibial vein thrombus. 2. Microfoam chemical ablation of left leg branch saphenous varicosities. Nurse notes, history and physical were reviewed and confirmed, see attached forms. The nurse was present throughout the physical exam and consultation Dictated by: Nabeel Waters M.D. on 01/24/2024 at 10:54 Approved by: Nabeel Waters M.D. on 01/24/2024 at 10:59
--- NOTE | 2024-01-24 09:04 | VEIN_ITS ---
Patient Name: BLAKE CARDONA MR#: [id number] : 1985 Exam Date: 01/24/2024 Ordering Doctor: DR ILANA GUTIERRES M.D. RADIOLOGY REPORT PROCEDURE: VC EXT VENOUS RT LMTD COMPARISON: VC EXT VENOUS RT LMTD, 12/20/2023. INDICATIONS: Phlebitis of superficial veins of right lower extremity I80.01 TECHNIQUE: Lower extremity lind scale and Duplex Doppler evaluation of the deep venous system from the inguinal ligament through the calf veins. FINDINGS: REGION: Right lower extremity. THROMBI: Positive for DVT. Chemically induced thrombus in multiple varicose veins in right leg. Thrombus extends into PTV proximal to mid lower leg and approximately 7 cm form popliteal vein. COMPRESSIBILITY: Non-compressible segments corresponding to thrombus FLOW: Areas of no flow corresponding to thrombus OTHER: Patent varicose vein anterior distal lower leg measures 3.6 mm. CONCLUSION: 1. Successful post ablation occlusion of right leg treated branch saphenous varicosities. 2. Short segment of thrombus within posterior tibial vein. Dictated by: Nabeel Waters M.D. on 01/24/2024 at 10:53 Approved by: Nabeel Waters M.D. on 01/24/2024 at 10:54
--- OUTSIDE RECORDS SUMMARY | 2024-01-24 09:25 | XMS_ITS | CCD ---
Author Organization [facility] Care Team Providers Care Vessel Slag Worker Name Role Phone HOUSE, DR SKAGGS Primary Care Unavailable GABI WEBB Attending Unavailable GABI WEBB Consulting Unavailable GABI WEBB Admitting Unavailable Allergies Allergy Classification Reported Allergen(s) Allergy Type Date of Onset Reaction(s) Facility (1 source) Chlorhexidine Drug Allergy [facility] (1 source) Methocarbamol Drug Allergy [facility] (1 source) Chlorhexidine Drug Allergy 12-16-2023 [facility] (1 source) Methocarbamol Drug Allergy 12-16-2023 [facility] Medications Current Medications Medication Drug Class(es) Dates Sig (Normalized) Sig (Original) [id number] 200 actuat albuterol 0.09 mg/actuat metered dose [...] 1.1-4.4 The [facility] Comment on above: Result Comment: C-Pe ptide reference interval is for fasting patients. Performed By: #### C PEPT #### [facility] [address] [place], [place] [address] Dr. Fátima Keller DIRECT LDLon 10-01-2022 Cholesterol in LDL [Mass/Vol] 98 mg/dL Normal [facility] Comment on above: Performed By: #### L IPID, DLDL, TSH, RENAL #### [facility] [address] [place], [place] [address] Dr. Fátima Keller DLDL NORMAL SEE BELOW Normal [facility] Comment on above: Result Comment: <100 mg/dl OPTIMAL 100 - 129 mg/dl NEAR OR ABOVE OPTIMAL 130 - 159 mg/dl BORDERLINE HIGH 160 - 189 mg/dl HIGH >190 mg/dl VERY HIGH Performed By: #### L IPID, DLDL, TSH, RENAL #### [facility] [address] [place] [address] Dr. Fátima Keller LIPID PROFILEon 10-01-2022 CHOL-HDL RATIO NORM SEE BELOW Normal [facility] Comment on above: Result Comment: 3.3 - 4.4 LOW RISK 4.4 - 7.1 AVERAGE RISK 7.1 - 11.0 MODERATE RISK >11.0 HIGH RISK Performed By: #### L IPID, DLDL, TSH, RENAL #### [facility] [address] [place] [address] Dr. Fátima Keller Cholesterol [Mass/Vol] 320 mg/dL Critically high <=200 [facility] Comment on above: Performed By: #### L IPID, DLDL, TSH, RENAL #### [facility] [address] [place] [address] [address] Fátima Keller Cholesterol in HDL [Mass/Vol] 38 mg/dL Critically low 40-60 [facility] Comment on above: Performed By: #### L IPID, DLDL, TSH, RENAL #### [facility] [address] [place] [address] Dr. Fátima Keller Cholesterol in LDL [Mass/Vol] 51.8 mg/dL Normal [facility] Comment on above: Performed By: #### L IPID, DLDL, TSH, RENAL #### [facility] [address] [place] [address] Dr. Fátima Keller Cholesterol.total/ Cholesterol in HDL [Mass ratio] 8.4 {ratio} Normal [facility] Comment on above: Performed By: #### L IPID, DLDL, TSH, RENAL #### [facility] [address] [place] [address] Dr. Fátima Keller HDL NORMAL > or = 60 mg/dl - LO W CARDIOVASCULAR RISK <40 mg/dl - HIGH CARDIOVASCULAR RISK Normal [facility] Comment on above: Performed By: #### L IPID, DLDL, TSH, RENAL #### [facility] [address] [place] [address] [address] Fátima Keller LDL CALC NORMAL SEE BELOW Normal [facility] Comment on above: Result Comment: <100 mg/dl OPTIMAL 100 - 129 mg/dl NEAR OR ABOVE OPTIMAL 130 - 159 mg/dl BORDERLINE HIGH 160 - 189 mg/dl HIGH >190 mg/dl VERY HIGH Performed By: #### L IPID, DLDL, TSH, RENAL #### [facility] [address] [place] [address] [address] Fátima Keller Triglyceride [Mass/Vol] 1151 mg/dL Critically high <=150 [facility] Comment on above: Performed By: #### L IPID, DLDL, TSH, RENAL #### [facility] [address] [place] [address] [address] Fátima Keller VLDL CALC 230.2 mg/dL Normal [facility] Comment on above: Performed By: #### L IPID, DLDL, TSH, RENAL #### [facility] [address] [place] [address] [address] Fátima Keller MICROALB CREAT RATIO RANDOMo n 10-01-2022 mALB 32.2 mg/L Critically high <=30.0 [facility] Comment on above: Performed By: #### M CRR #### [facility] [address] [place] [address] Dr. Fátima Keller MALB CR RATIO 794.5 mg/g Critically high 0.0-29.9 [facility] Comment on above: Performed By: #### M CRR #### [facility] [address] [place] [address] Dr. Fátima Keller MALB CR RATIO RANGE SEE BELOW Normal [facility] Comment on above: Result Comment: NO M ICROALBUMINURIA 0-29 MG/G CLINICAL MICROALBUMINURIA 30-300 MG/G MACROALBUMINURIA >300 MG/G Performed By: #### M CRR #### [facility] [address] [place] [address] Dr. Fátima Keller URINE CREAT 40.53 mg/dL Normal 20.00-300.00 [facility] Comment on above: Performed By: #### M CRR #### [facility] [address] [place] [address] [address] Fátima Keller RENAL FUNCTION PANELon 10-01 Albumin [Mass/Vol] 3.2 g/dL Critically low 3.4-5.0 Th e [facility] Comment on above: Performed By: #### L IPID, DLDL, TSH, RENAL #### [facility] [address] [place] [address] [address] Fátima Keller Calcium [Mass/Vol] 9.5 mg/dL Normal 8.5-10.1 [facility] Comment on above: Performed By: #### L IPID, DLDL, TSH, RENAL #### [facility] [address] [place] [address] Dr. Fátima Keller Chloride [Moles/Vol] 99 mmol/L Normal 98-107 [facility] Comment on above: Performed By: #### L IPID, DLDL, TSH, RENAL #### [facility] [address] [place] [address] Dr. Fátima Keller CO2 [Moles/Vol] 24.6 mmol/L Normal 21.0-32.0 [facility] Comment on above: Performed By: #### L IPID, DLDL, TSH, RENAL #### [facility] [address] [place] [address] Dr. Fátima Keller Creatinine [Mass/Vol] 0.86 mg/dL Normal 0.70-1.30 [facility] Comment on above: Performed By: #### L IPID, DLDL, TSH, RENAL #### [facility] [address] [place] [address] Dr. Fátima Keller EGFR-AF IRAQI >60 Normal >=60 [facility] Comment on above: Performed By: #### L IPID, DLDL, TSH, RENAL #### [facility] [address] [place] [address] Dr. Fátima Keller EGFR-NON AF IRAQI >60 Normal >=60 [facility] Comment on above: Performed By: #### L IPID, DLDL, TSH, RENAL #### [facility] [address] [place] [address] Dr. Fátima Keller Glucose [Mass/Vol] 222 mg/dL Critically high 74-106 T [facility] Comment on above: Performed By: #### L IPID, DLDL, TSH, RENAL #### [facility] [address] [place] [address] Dr. Fátima Keller Phosphate [Mass/Vol] 4.2 mg/dL Normal 2.6-4.7 [facility] Comment on above: Performed By: #### L IPID, DLDL, TSH, RENAL #### [facility] [address] [place] [address] Dr. Fátima Keller Potassium [Moles/Vol] 4.0 mmol/L Normal 3.5-5.1 [facility] Comment on above: Performed By: #### L IPID, DLDL, TSH, RENAL #### [facility] [address] [place] [address] Dr. Fátima Keller Sodium [Moles/Vol] 135 mmol/L Critically low 136-145 [facility] Comment on above: Performed By: #### L IPID, DLDL, TSH, RENAL #### [facility] [address] [place] [address] Dr. Fátima Keller Urea nitrogen [Mass/Vol] 22.0 mg/dL Critically high 7.0-18.0 [facility] Comment on above: Performed By: #### L IPID, DLDL, TSH, RENAL #### [facility] [address] [place] [address] Dr. Fátima Keller TSHon 10-01-2022 TSH 1.680 uIU/mL Normal 0.358-3.740 [facility] Comment on above: Performed By: #### L IPID, DLDL, TSH, RENAL #### [facility] [address] [place] [address] Dr. Fátima Keller VITAMIN D 25 OHon 10-01-2022 VIT D 25-OH 8.3 ng/mL Normal [facility] Comment on above: Performed By: #### V ITAD #### [facility] [address] [place], [place] [address] Dr. Fátima Keller VIT D RANGES SEE BELOW Normal [facility] Comment on above: Result Comment: <20 ng/mL Vit D deficient 20 - <30 ng/mL Vit D insufficient 30 - 100 ng/mL Vit D sufficient >100 ng/mL Potential Toxicity Performed By: #### V ITAD #### [facility] [address] [place] [id number] Fátima Keller Vital Signs Date Time Vital Sign Value Performing Clinician Faci lity 12-16-2023 12:20-0400 Body height 185.42 cm [facility] 12-16-2023 12:20-0400 Body mass index (BMI) [Ratio] 26.4 kg/m2 [facility] 12-16-2023 12:20-0400 Body temperature 98.3 [degF] [facility] 12-16-2023 12:20-0400 Body weight 90.71 kg [facility] 12-16-2023 12:20-0400 Heart rate 71 /min [facility] 12-16-2023 12:20-0400 Respiratory rate 18 /min [facility] 12-16-2023 12:20-0400 SaO2% (BldA) [Mass fraction] 99 % [facility] Encounters Encounter Date Encounter Type Care Provider Facility Start: 12-16-2023 End: 12-16-2023 ambulatory [facility] Work Phone: Start: 12-16-2023 End: 12-16-2023 Patient encounter procedure [facility] Work Phone: Start: 10-01-2022 End: 10-02-[address] GILES RUIZ Facility: Payers Date Payer Category Payer Unknown [id number] 1957 Unknown [id number] Medicaid [facility] Medicaid [id number] Social History Date Type Detail Facility Start: 12-16-2023 Tobacco smoking stat us AZIS Ex-smoker (finding) [facility] Start: 1985 Sex Assigned At Male F [facility] Evaluation note Note Date & Type Note Facility Evaluation note No assessment information availa ble [facility] Work Phone: Summary Purpose Family [...] content) DATE CREATED AUTHOR 11/13/2022 [facility] Care Teams (unrecognized sec tion and [...] BE BASED ON THE PRIMARY CLINICAL RECORDS. [facility] [employer] provides no warranty or guarantee of the accuracy or completeness of information in this document.
== END 2024-01-24 09:03 | disposition home or self-care (01) ==
LOC: VC 09:02
PROVIDERS: PCP Radiology Diagnostic Radiology; Visit Provider Radiology Diagnostic Radiology
DX: I80.01 Phlebitis and thrombophlebitis of superficial vessels of right lower extremity (principal)
CPT/HCPCS: 93971; G0463

== ENCOUNTER 2024-02-07 09:28 | Outpatient (OUT) | payer MEDICAID, SELFPAY ==
--- NOTE | 2024-02-07 09:30 | VEIN_ITS ---
[address] [address] Patient Name: BLAKE CARDONA MRN: [id number] date: 1985 Sex: M Assigned Patient Location: Current Patient Location: Accession/Order Number: [id number] Exam Date: 02/07/2024 09:51 Report Date: 02/07/2024 12:15 At the request of: ILANA GUTIERRES Procedure: VC INJ Foam Sclerosant WUS CREDIT ADMINISTRATION MANAGER PROCEDURE: VC INJ Foam Sclerosant WUS CREDIT ADMINISTRATION MANAGER HISTORY: I83.813 Pain due to varicose veins of bilateral legs Pre-operative Diagnosis: CEAP class C4a venous insufficiency with pain, tenderness, edema and incompetent branch saphenous vein(s), chronic venous insufficiency left leg secondary to venous incompetence Post-operative Diagnosis: CEAP class C4a venous insufficiency with pain, tenderness, edema and incompetent branch saphenous vein(s), chronic venous insufficiency [ leg secondary to venous incompetence Procedure Performed: 1. Ultrasound-guided microfoam chemical ablation with Varithenaregistered 2. Intraoperative ultrasound guidance Physician: Nabeel Waters M.D. Anesthesia: None Indications for Procedure: 38 year old male. Symptoms including lower extremity swelling, throbbing, heaviness, dilated bulging veins for many years despite conservative medical therapy including medical compression stockings, exercise and analgesics. Prior procedures include endovenous laser ablation and microfoam chemical ablation. Multiple incompetent varicosities of the left leg. Duplex scan showed reflux and enlarged diameters up to 5 mm. The patient underwent informed consent including management options where the complications of infection, bleeding, pain, and skin injury were discussed. Particular attention was spent discussing thrombus extension and deep vein thrombosis as well as the possibility of pulmonary embolus and treatment with oral or injectable blood thinners. Procedure: The patient walked to the procedure room. All applicable staff donned appropriate apparel. A procedure timeout was performed to confirm correct patient, correct extremity, correct procedure, and correct room set-up including presence of all applicable supplies, devices, and drugs. A duplex ultrasound, performed by myself confirmed the location and incompetence of branch saphenous varicosities and their course was marked on the skin together with the dilated tributaries. The extent of treatment of the vein and the associated varicosities was determined through ultrasound mapping. The skin was prepped and then punctured with a butterfly needle and advanced under ultrasound guidance. The Varithenaregistered canister was activated and the canister was primed and purged as required in the instructions for use. Varithenaregistered was drawn into a sterile syringe. Varithenaregistered was slowly administered at 0.5-1.0 cc/second with close observation by ultrasound of its course in the vessels. Total volume utilized was: 15 mL (8 mL into a 5 mm varicosity proximal lateral lower leg; 4 mL into a 4 mm varicosity anterior mid thigh; 3 mL into a 4 mm varicosity mid medial thigh). Following administration of Varithenaregistered the leg was elevated and the patient was asked to repeatedly dorsiflex the ankle to limit flow of Varithenaregistered into perforating veins. Once appropriate spasm had been confirmed in the treated veins, the vascular catheter was removed from the leg and light pressure was applied over the puncture site for hemostasis. The common femoral and deep superficial veins were then evaluated for flow and compressibility prior to dressing placement. The lower extremity was kept elevated at 45 degrees above the horizontal and cording material was applied over the saphenous segments and tributaries to allow for eccentric compression over the target vessels including the targeted saphenous vein(s). A multilayer dressing was applied consisting of foam pads, coban and thigh-high 20-30 mm Hg compression elastic support hose were placed on the patient. The leg was lowered only after compression had been applied and the patient was immediately ambulatory. The patient ambulated 10 minutes under supervision and was without apparent concerns at time of release. Post-care instructions include advising patient to keep post-treatment bandages in place and dry for 48 hours, avoid extended periods of inactivity, avoid heavy exercise for one week, wear compression stockings on the treated leg continuously for two weeks, to walk daily for 10 minutes over the next month. The patient was instructed to take an anti-inflammatory medicine as needed and to follow up for color duplex scan of the Saphenous veins, the treated branch saphenous varicosities, the adjacent deep veins, and additional treatment within 7 days. PERSONNEL: Harmony Sage RN Electronically authenticated by: NABEEL WATERS Date: 02/07/2024 12:15
--- OUTSIDE RECORDS SUMMARY | 2024-02-07 09:50 | XMS_ITS | CCD ---
Author Organization [facility] Care Team Providers Care Commercial Administrator Name Role Phone HOUSE, DR SKAGGS Primary Care Unavailable GABI WEBB Attending Unavailable GABI WEBB Consulting Unavailable GABI WEBB Admitting Unavailable Allergies Allergy Classification Reported Allergen(s) Allergy Type Date of Onset Reaction(s) Facility (1 source) Chlorhexidine Drug Allergy [facility] (1 source) Methocarbamol Drug Allergy [facility] (1 source) Chlorhexidine Drug Allergy 12-16-2023 [facility] (1 source) Methocarbamol Drug Allergy 12-16-2023 [facility] Medications Current Medications Medication Drug Class(es) Dates Sig (Normalized) Sig (Original) [id number] 200 actuat albuterol 0.09 mg/actuat metered dose [...] C-Peptide, Serum 3.6 ng/mL Normal 1.1-4.4 [facility] Comment on above: Result Comment: C-Pe ptide reference interval is for fasting patients. Performed By: #### C PEPT #### [facility] [address] [place], [place] [address] Dr. Fátima Keller DIRECT LDLon 10-01-2022 Cholesterol in LDL [Mass/Vol] 98 mg/dL Normal [facility] Comment on above: Performed By: #### L IPID, DLDL, TSH, RENAL #### [facility] [address] [place], [place] [address] Dr. Fátima Keller DLDL NORMAL SEE BELOW Normal [facility] Comment on above: Result Comment: <100 mg/dl OPTIMAL 100 - 129 mg/dl NEAR OR ABOVE OPTIMAL 130 - 159 mg/dl BORDERLINE HIGH 160 - 189 mg/dl HIGH >190 mg/dl VERY HIGH Performed By: #### L IPID, DLDL, TSH, RENAL #### [facility] [address] [place] [address] [address] Fátima Keller LIPID PROFILEon 10-01-2022 CHOL-HDL RATIO NORM SEE BELOW Normal [facility] Comment on above: Result Comment: 3.3 - 4.4 LOW RISK 4.4 - 7.1 AVERAGE RISK 7.1 - 11.0 MODERATE RISK >11.0 HIGH RISK Performed By: #### L IPID, DLDL, TSH, RENAL #### [facility] [address] [address] [address] Fátima Keller Cholesterol [Mass/Vol] 320 mg/dL Critically high <=200 [facility] Comment on above: Performed By: #### L IPID, DLDL, TSH, RENAL #### [facility] [address] [address] [address] Fátima Keller Cholesterol in HDL [Mass/Vol] 38 mg/dL Critically low 40-60 [facility] Comment on above: Performed By: #### L IPID, DLDL, TSH, RENAL #### [facility] [address] [place] [address] Dr. Fátima Keller Cholesterol in LDL [Mass/Vol] 51.8 mg/dL Normal [facility] Comment on above: Performed By: #### L IPID, DLDL, TSH, RENAL #### [facility] [address] [address] [address] Fátima Keller Cholesterol.total/ Cholesterol in HDL [Mass ratio] 8.4 {ratio} Normal [facility] Comment on above: Performed By: #### L IPID, DLDL, TSH, RENAL #### [facility] [address] [place] [address] Dr. Fátima Keller HDL NORMAL > or = 60 mg/dl - LO W CARDIOVASCULAR RISK <40 mg/dl - HIGH CARDIOVASCULAR RISK Normal [facility] Comment on above: Performed By: #### L IPID, DLDL, TSH, RENAL #### [facility] [address] [address] [address] Fátima Keller LDL CALC NORMAL SEE BELOW Normal [facility] Comment on above: Result Comment: <100 mg/dl OPTIMAL 100 - 129 mg/dl NEAR OR ABOVE OPTIMAL 130 - 159 mg/dl BORDERLINE HIGH 160 - 189 mg/dl HIGH >190 mg/dl VERY HIGH Performed By: #### L IPID, DLDL, TSH, RENAL #### [facility] [address] [address] [address] Fátima Keller Triglyceride [Mass/Vol] 1151 mg/dL Critically high <=150 [facility] Comment on above: Performed By: #### L IPID, DLDL, TSH, RENAL #### [facility] [address] [place] [address] Dr. Fátima Keller VLDL CALC 230.2 mg/dL Normal [facility] Comment on above: Performed By: #### L IPID, DLDL, TSH, RENAL #### [facility] [address] [address] [address] Fátima Keller MICROALB CREAT RATIO RANDOMo n 10-01-2022 mALB 32.2 mg/L Critically high <=30.0 [facility] Comment on above: Performed By: #### M CRR #### [facility] [address] [address] [address] Fátima Keller MALB CR RATIO 794.5 mg/g Critically high 0.0-29.9 [facility] Comment on above: Performed By: #### M CRR #### [facility] [address] [address] [address] Fátima Keller MALB CR RATIO RANGE SEE BELOW Normal [facility] Comment on above: Result Comment: NO M ICROALBUMINURIA 0-29 MG/G CLINICAL MICROALBUMINURIA 30-300 MG/G MACROALBUMINURIA >300 MG/G Performed By: #### M CRR #### [facility] [address] [address] [address] Fátima Keller URINE CREAT 40.53 mg/dL Normal 20.00-300.00 [facility] Comment on above: Performed By: #### M CRR #### [facility] [address] [address] [address] Fátima Keller RENAL FUNCTION PANELon 10-01 Albumin [Mass/Vol] 3.2 g/dL Critically low 3.4-5.0 [facility] Comment on above: Performed By: #### L IPID, DLDL, TSH, RENAL #### [facility] [address] [address] [address] Fátima Keller Calcium [Mass/Vol] 9.5 mg/dL Normal 8.5-10.1 [facility] Comment on above: Performed By: #### L IPID, DLDL, TSH, RENAL #### [facility] [address] [place] [address] Dr. Fátima Keller Chloride [Moles/Vol] 99 mmol/L Normal 98-107 [facility] Comment on above: Performed By: #### L IPID, DLDL, TSH, RENAL #### [facility] [address] [place] [address] Dr. Fátima Keller CO2 [Moles/Vol] 24.6 mmol/L Normal 21.0-32.0 [facility] Comment on above: Performed By: #### L IPID, DLDL, TSH, RENAL #### [facility] [address] [place] [address] Dr. Fátima Keller Creatinine [Mass/Vol] 0.86 mg/dL Normal 0.70-1.30 [facility] Comment on above: Performed By: #### L IPID, DLDL, TSH, RENAL #### [facility] [address] [place] [address] Dr. Fátima Keller EGFR-AF WELSH >60 Normal >=60 [facility] Comment on above: Performed By: #### L IPID, DLDL, TSH, RENAL #### [facility] [address] [place] [address] Dr. Fátima Keller EGFR-NON AF WELSH >60 Normal >=60 [facility] Comment on above: Performed By: #### L IPID, DLDL, TSH, RENAL #### [facility] [address] [place] [address] Dr. Fátima Keller Glucose [Mass/Vol] 222 mg/dL Critically high 74-106 T [facility] Comment on above: Performed By: #### L IPID, DLDL, TSH, RENAL #### [facility] [address] [place] [address] Dr. Fátima Keller Phosphate [Mass/Vol] 4.2 mg/dL Normal 2.6-4.7 [facility] Comment on above: Performed By: #### L IPID, DLDL, TSH, RENAL #### [facility] [address] [place] [address] Dr. Fátima Keller Potassium [Moles/Vol] 4.0 mmol/L Normal 3.5-5.1 [facility] Comment on above: Performed By: #### L IPID, DLDL, TSH, RENAL #### [facility] [address] [place] [address] Dr. Fátima Keller Sodium [Moles/Vol] 135 mmol/L Critically low 136-145 [facility] Comment on above: Performed By: #### L IPID, DLDL, TSH, RENAL #### [facility] [address] [place] [address] Dr. Fátima Keller Urea nitrogen [Mass/Vol] 22.0 mg/dL Critically high 7.0-18.0 [facility] Comment on above: Performed By: #### L IPID, DLDL, TSH, RENAL #### [facility] [address] [place] [address] Dr. Fátima Keller TSHon 10-01-2022 TSH 1.680 uIU/mL Normal 0.358-3.740 [facility] Comment on above: Performed By: #### L IPID, DLDL, TSH, RENAL #### [facility] [address] [place] [address] Dr. Fátima Keller VITAMIN D 25 [place]on 10-01-2022 VIT D 25-OH 8.3 ng/mL Normal [facility] Comment on above: Performed By: #### V ITAD #### [facility] [address] [address] [address] Fátima Keller VIT D RANGES SEE BELOW Normal [facility] Comment on above: Result Comment: <20 ng/mL Vit D deficient 20 - <30 ng/mL Vit D insufficient 30 - 100 ng/mL Vit D sufficient >100 ng/mL Potential Toxicity Performed By: #### V ITAD #### [facility] [address] [address] [address] Fátima Keller Vital Signs Date Time Vital Sign Value Performing Clinician Faci lity 12-16-2023 12:20-0400 Body height 185.42 cm [facility] 12-16-2023 12:20-0400 Body mass index (BMI) [Ratio] 26.4 kg/m2 [facility] 12-16-2023 12:20-0400 Body temperature 98.3 [degF] [facility] 12-16-2023 12:20-0400 Body weight 90.71 kg [facility] 12-16-2023 12:20-0400 Heart rate 71 /min [facility] 12-16-2023 12:20-0400 Respiratory rate 18 /min [facility] 12-16-2023 12:20-0400 SaO2% (BldA) [Mass fraction] 99 % [facility] Encounters Encounter Date Encounter Type Care Provider Facility Start: 12-16-2023 End: 12-16-2023 ambulatory [facility] Work Phone: Start: 12-16-2023 End: 12-16-2023 Patient encounter procedure [facility] Work Phone: Start: 10-01-2022 End: 10-02-[address] GILES RUIZ Facility: Payers Date Payer Category Payer Unknown [id number] 1957 Unknown [id number] Medicaid [facility] Medicaid [id number] Social History Date Type Detail Facility Start: 12-16-2023 [facility] [place] (finding[facility] Start: 1985 Sex Assigned At Male [facility] Evaluation note Note Date & Type Note Facility Evaluation note No assessment information availa ble [facility] Work Phone: Summary Purpose Family History [...] content) DATE CREATED AUTHOR 11/13/2022 [facility] Care Teams (unrecognized sec tion and [...] BE BASED ON THE PRIMARY CLINICAL RECORDS. [employer] provides no warranty or guarantee of the accuracy or completeness of information in this document.
== END 2024-02-07 09:29 | disposition home or self-care (01) ==
LOC: VC 09:28
PROVIDERS: PCP Radiology Diagnostic Radiology; Visit Provider Radiology Diagnostic Radiology
DX: I83.813 Varicose veins of bilateral lower extremities with pain (principal)
CPT/HCPCS: 36466

== ENCOUNTER 2024-02-14 10:10 | Outpatient (OUT) | payer MEDICAID, SELFPAY ==
--- NOTE | 2024-02-14 10:13 | VEIN_ITS ---
Patient Name: BLAKE CARDONA MR#: [id number] : 1985 Exam Date: 02/14/2024 Ordering Doctor: DR ILANA GUTIERRES M.D. RADIOLOGY REPORT PROCEDURE: VC EXT VENOUS LT LIMITED COMPARISON: VC EXT VENOUS LT LIMITED, 01/10/2024. INDICATIONS: I80.02 Phlebitis of superficial veins of lt lower extremity TECHNIQUE: Lower extremity lind scale and Duplex Doppler evaluation of the deep venous system from the inguinal ligament through the calf veins. FINDINGS: REGION: Left lower extremity. THROMBI: Negative for DVT. Varithena induced thrombus visualized at mid/ant thigh, mid/med thigh, and prox/lat calf. COMPRESSIBILITY: Non-compressible segments corresponding to thrombus FLOW: Areas of no flow corresponding to thrombus OTHER: Multiple varicose veins remain largest is distal GSV. CONCLUSION: 1. Successful post ablation occlusion of left leg treated branch saphenous varicosities. Dictated by: Nabeel Waters M.D. on 02/14/2024 at 12:05 Approved by: Nabeel Waters M.D. on 02/14/2024 at 12:06
--- NOTE | 2024-02-14 10:13 | VEIN_ITS ---
Patient Name: BLAKE CARDONA MR#: [id number] : 1985 Exam Date: 02/14/2024 Ordering Doctor: DR ILANA GUTIERRES M.D. RADIOLOGY REPORT PROCEDURE: [facility] - OFFICE VISIT FOLLOW UP COMPARISON: [facility], 01/24/2024. PROGRESS NOTES: The patient reports improvement in leg symptoms. There has been interval reduction in varicosities. The patient has followed our recommendations to walk 20-30 minutes once or twice per day since the procedure. Physical exam demonstrates decrease in varicosities of the leg. Review of the ultrasound performed the same day demonstrates occlusive thrombus extending throughout the treated vein(s), see separate report, consistent with a successful ablation. No thrombus extending into or beyond the saphenofemoral junction. Remaining prominent varicosity within lower left leg. The patient expressed a desire to proceed with treatment of remaining varicosities of bilateral lower extremities. The patient was informed that treatment was a process and would require 1-2 procedures/sessions. [facility] IM[facility]: 1. Successful ablation of the left leg treated branch saphenous vein(s). 2. Persistent varicose veins and lower extremity symptoms. PLAN: 1. Microfoam chemical ablation of right leg remaining incompetent branch saphenous varicosities. 2. Follow-up ultrasound could be performed at that time to confirm clearing versus stability of small thrombus within right posterior tibial vein. Nurse notes, history and physical were reviewed and confirmed, see attached forms. The nurse was present throughout the physical exam and consultation Dictated by: Nabeel Waters M.D. on 02/14/2024 at 12:06 Approved by: Nabeel Waters M.D. on 02/14/2024 at 12:09
--- OUTSIDE RECORDS SUMMARY | 2024-02-14 10:36 | XMS_ITS | CCD ---
Author Organization [facility] Care Team Providers Care Colorist Formulator Name Role Phone HOUSE, DR SKAGGS Primary Care Unavailable GABI WEBB Attending Unavailable GBAI WEBB Consulting Unavailable GABI WEBB Admitting Unavailable Allergies Allergy Classification Reported Allergen(s) Allergy Type Date of Onset Reaction(s) Facility (1 source) Chlorhexidine Drug Allergy [facility] (1 source) Methocarbamol Drug Allergy [facility] (1 source) Chlorhexidine Drug Allergy 12-16-2023 [facility] (1 source) Methocarbamol Drug Allergy 12-16-2023 [facility] Medications Current Medications Medication Drug Class(es) Dates Sig (Normalized) Sig (Original) [id number] 200 actuat albuterol 0.09 mg/actuat metered dose [...] C-Peptide, Serum 3.6 ng/mL Normal 1.1-4.4 [facility] Comment on above: Result Comment: C-Pe ptide reference interval is for fasting patients. Performed By: #### C PEPT #### [facility] [address], [place] [address] Dr. Fátima Keller DIRECT LDLon 10-01-2022 Cholesterol in LDL [Mass/Vol] 98 mg/dL Normal [facility] Comment on above: Performed By: #### L IPID, DLDL, TSH, RENAL #### [facility] [address], [place] [address] Dr. Fátima Keller DLDL NORMAL SEE BELOW Normal [facility] Comment on above: Result Comment: <100 mg/dl OPTIMAL 100 - 129 mg/dl NEAR OR ABOVE OPTIMAL 130 - 159 mg/dl BORDERLINE HIGH 160 - 189 mg/dl HIGH >190 mg/dl VERY HIGH Performed By: #### L IPID, DLDL, TSH, RENAL #### [facility] [address] [address] [address] Fátima Keller LIPID PROFILEon 10-01-2022 CHOL-HDL RATIO NORM SEE BELOW Normal [facility] Comment on above: Result Comment: 3.3 - 4.4 LOW RISK 4.4 - 7.1 AVERAGE RISK 7.1 - 11.0 MODERATE RISK >11.0 HIGH RISK Performed By: #### L IPID, DLDL, TSH, RENAL #### [facility] [address] [address] [address] Fátima Keller Cholesterol [Mass/Vol] 320 mg/dL Critically high <=200 [facility] Comment on above: Performed By: #### L IPID, DLDL, TSH, RENAL #### [facility] [address] [address] [address] Fátima Kellre Cholesterol in HDL [Mass/Vol] 38 mg/dL Critically low 40-60 [facility] Comment on above: Performed By: #### L IPID, DLDL, TSH, RENAL #### [facility] [address] [place] [address] Dr. Fátima Keller Cholesterol in LDL [Mass/Vol] 51.8 mg/dL Normal [facility] Comment on above: Performed By: #### L IPID, DLDL, TSH, RENAL #### [facility] [address] [address] [address] Fáitma Keller Cholesterol.total/ Cholesterol in HDL [Mass ratio] 8.4 {ratio} Normal [facility] Comment on above: Performed By: #### L IPID, DLDL, TSH, RENAL #### [facility] [address] [place] [address] Dr. Fátima Keller HDL NORMAL > or = 60 mg/dl - LO W CARDIOVASCULAR RISK <40 mg/dl - HIGH CARDIOVASCULAR RISK Normal [facility] Comment on above: Performed By: #### L IPID, DLDL, TSH, RENAL #### [facility] [address] [address] [address] Fátima Keller LDL CALC NORMAL SEE BELOW Normal [facility] Comment on above: Result Comment: <100 mg/dl OPTIMAL 100 - 129 mg/dl NEAR OR ABOVE OPTIMAL 130 - 159 mg/dl BORDERLINE HIGH 160 - 189 mg/dl HIGH >190 mg/dl VERY HIGH Performed By: #### L IPID, DLDL, TSH, RENAL #### [facility] [address] [address] [address] Fátima Keller Triglyceride [Mass/Vol] 1151 mg/dL Critically high <=150 [facility] Comment on above: Performed By: #### L IPID, DLDL, TSH, RENAL #### [facility] [address] [place] [address] Dr. Fátima Keller VLDL CALC 230.2 mg/dL Normal [facility] Comment on above: Performed By: #### L IPID, DLDL, TSH, RENAL #### [facility] [address] [address] [address] Fátima Keller MICROALB CREAT RATIO RANDOMo n 10-01-2022 mALB 32.2 mg/L Critically high <=30.0 [facility] Comment on above: Performed By: #### M CRR #### [facility] [address] [address] [address] Fátima Keller MALB CR RATIO 794.5 mg/g Critically high 0.0-29.9 [facility] Comment on above: Performed By: #### M CRR #### [facility] [address] [address] [address] Fátima Keller MALB CR RATIO RANGE SEE BELOW Normal [facility] Comment on above: Result Comment: NO M ICROALBUMINURIA 0-29 MG/G CLINICAL MICROALBUMINURIA 30-300 MG/G MACROALBUMINURIA >300 MG/G Performed By: #### M CRR #### [facility] [address] [address] [address] Fátima Keller URINE CREAT 40.53 mg/dL Normal 20.00-300.00 [facility] Comment on above: Performed By: #### M CRR #### [facility] [address] [address] [address] Fátima Keller RENAL FUNCTION PANELon 10-01 Albumin [Mass/Vol] 3.2 g/dL Critically low 3.4-5.0 [facility] Comment on above: Performed By: #### L IPID, DLDL, TSH, RENAL #### [facility] [address] [address] [address] Fátima Keller Calcium [Mass/Vol] 9.5 mg/dL Normal 8.5-10.1 [facility] Comment on above: Performed By: #### L IPID, DLDL, TSH, RENAL #### [facility] [address] [place] [address] Dr. Fátima Keller Chloride [Moles/Vol] 99 mmol/L Normal 98-107 [facility] Comment on above: Performed By: #### L IPID, DLDL, TSH, RENAL #### [facility] [address] [place] [address] Dr. Fátima Keller CO2 [Moles/Vol] 24.6 mmol/L Normal 21.0-32.0 [facility] Comment on above: Performed By: #### L IPID, DLDL, TSH, RENAL #### [facility] [address] [place] [address] Dr. Fátima Keller Creatinine [Mass/Vol] 0.86 mg/dL Normal 0.70-1.30 [facility] Comment on above: Performed By: #### L IPID, DLDL, TSH, RENAL #### [facility] [address] [place] [address] Dr. Fátima Keller EGFR-AF [place]LANDER >60 Normal >=60 [facility] Comment on above: Performed By: #### L IPID, DLDL, TSH, RENAL #### [facility] [address] [place] [address] Dr. Fátima Keller EGFR-NON AF [place]ER >60 Normal >=60 [facility] Comment on above: Performed By: #### L IPID, DLDL, TSH, RENAL #### [facility] [address] [place] [address] Dr. Fátima Keller Glucose [Mass/Vol] 222 mg/dL Critically high 74-106 T [facility] Comment on above: Performed By: #### L IPID, DLDL, TSH, RENAL #### [facility] [address] [place] [address] Dr. Fátima Keller Phosphate [Mass/Vol] 4.2 mg/dL Normal 2.6-4.7 [facility] Comment on above: Performed By: #### L IPID, DLDL, TSH, RENAL #### [facility] [address] [place] [address] Dr. Fátima Keller Potassium [Moles/Vol] 4.0 mmol/L Normal 3.5-5.1 [facility] Comment on above: Performed By: #### L IPID, DLDL, TSH, RENAL #### [facility] [address] [place] [address] Dr. Fátima Keller Sodium [Moles/Vol] 135 mmol/L Critically low 136-145 [facility] Comment on above: Performed By: #### L IPID, DLDL, TSH, RENAL #### [facility] [address] [place] [address] Dr. Fátima Keller Urea nitrogen [Mass/Vol] 22.0 mg/dL Critically high 7.0-18.0 [facility] Comment on above: Performed By: #### L IPID, DLDL, TSH, RENAL #### [facility] [address] [place] [address] Dr. Fátima Keller TSHon 10-01-2022 TSH 1.680 uIU/mL Normal 0.358-3.740 [facility] Comment on above: Performed By: #### L IPID, DLDL, TSH, RENAL #### [facility] [address] [place] [address] Dr. Fátima Keller VITAMIN D 25 OHon 10-01-2022 VIT D 25-OH 8.3 ng/mL Normal [facility] Comment on above: Performed By: #### V ITAD #### [facility] [address] [address] [address] Fátima Keller VIT D RANGES SEE BELOW Normal [facility] Comment on above: Result Comment: <20 ng/mL Vit D deficient 20 - <30 ng/mL Vit D insufficient 30 - 100 ng/mL Vit D sufficient >100 ng/mL Potential Toxicity Performed By: #### V ITAD #### [facility] [address] [address] [address] Fátima Keller Vital Signs Date Time Vital Sign Value Performing Clinician Faci lity 12-16-2023 12:20-0400 Body height 185.42 cm [facility] 12-16-2023 12:20-0400 Body mass index (BMI) [Ratio] 26.4 kg/m2 [facility] 12-16-2023 12:20-0400 Body temperature 98.3 [degF] [facility] 12-16-2023 12:20-0400 Body weight 90.71 kg [facility] 12-16-2023 12:20-0400 Heart rate 71 /min [facility] 12-16-2023 12:20-0400 Respiratory rate 18 /min [facility] 12-16-2023 12:20-0400 SaO2% (BldA) [Mass fraction] 99 % [facility] Encounters Encounter Date Encounter Type Care Provider Facility Start: 12-16-2023 End: 12-16-2023 ambulatory [facility] Work Phone: Start: 12-16-2023 End: 12-16-2023 Patient encounter procedure Replaced By [facility] Work Phone: Start: 10-01-2022 End: 10-02-[address] GILES RUIZ Facility: Payers Date Payer Category Payer Unknown [id number] 1957 Unknown [id number] Medicaid [facility] Medicaid [id number] Social History Date Type Detail Facility Start: [facility]-16-[facility]23 [facility] Start: 1985 Sex Assigned At Male F [facility] Evaluation note Note Date & Type Note Facility Evaluation note No assessment information availa ble [facility] Work Phone: Summary Purpose Family History [...] content) DATE CREATED AUTHOR 11/13/2022 [facility] Care Teams (unrecognized sec tion and [...] BE BASED ON THE PRIMARY CLINICAL RECORDS. [employer] provides no warranty or guarantee of the accuracy or completeness of information in this document.
== END 2024-02-14 10:11 | disposition home or self-care (01) ==
LOC: VC 10:10
PROVIDERS: PCP Radiology Diagnostic Radiology; Visit Provider Radiology Diagnostic Radiology
DX: I80.02 Phlebitis and thrombophlebitis of superficial vessels of left lower extremity (principal)
CPT/HCPCS: 93971; G0463

== ENCOUNTER 2024-02-28 07:31 | Outpatient (OUT) | payer MEDICAID, SELFPAY ==
--- NOTE | 2024-02-28 07:46 | VEIN_ITS ---
The [address] [address] Patient Name: BLAKE CARDONA MRN: [id number] date: 1985 Sex: M Assigned Patient Location: Current Patient Location: Accession/Order Number: [id number] Exam Date: 02/28/2024 07:46 Report Date: 02/28/2024 10:05 At the request of: ILANA GUTIERRES Procedure: VC INJ Foam Sclerosant WUS RETAIL FIELD SUPERVISOR PROCEDURE: VC INJ Foam Sclerosant WUS RETAIL FIELD SUPERVISOR COMPARISON: None. HISTORY: I83.813 Pain due to varicose veins of bilateral legs Pre-operative Diagnosis: CEAP class C4a venous insufficiency with pain, tenderness, edema and incompetent right saphenous and varicose vein(s), chronic venous insufficiency right leg secondary to venous incompetence Post-operative Diagnosis: CEAP class C4a venous insufficiency with pain, tenderness, edema and incompetent right saphenous and varicose vein(s), chronic venous insufficiency right leg secondary to venous incompetence Procedure Performed: 1. Ultrasound-guided microfoam chemical ablation with Varithenaregistered 2. Intraoperative ultrasound guidance Anesthesia: None No charge for the left leg Indications for Procedure: 38-year-old male who presents with a long history of lower extremity pain and swelling resulting and hemosiderin staining. The patient failed conservative medical therapy including medical compression stockings, exercise and analgesics. Prior procedures include a venous laser ablation and Microfoam chemical ablation. Multiple incompetent varicosities of the right leg. Duplex scan showed reflux and enlarged diameters up to 4 mm. The patient underwent informed consent including management options where the complications of infection, bleeding, pain, and skin injury were discussed. Particular attention was spent discussing thrombus extension and deep vein thrombosis as well as the possibility of pulmonary embolus and treatment with oral or injectable blood thinners. Procedure: The patient walked to the procedure room. All applicable staff donned appropriate apparel. A procedure timeout was performed to confirm correct patient, correct extremity, correct procedure, and correct room set-up including presence of all applicable supplies, devices, and drugs. A duplex ultrasound, performed by myself confirmed the location and incompetence of branch saphenous varicosities and their course was marked on the skin together with the dilated tributaries. The extent of treatment of the vein and the associated varicosities was determined through ultrasound mapping. The skin was prepped and then punctured with a butterfly needle and advanced under ultrasound guidance. The Varithenaregistered canister was activated and the canister was primed and purged as required in the instructions for use. Varithenaregistered was drawn into a sterile syringe. The following injections were made: 1 cc injected into a 3 mm varicose vein distal anterior left lower leg 4 cc injected into a 4 mm varicose vein mid distal right lower leg 6 cc injected into a 4 mm varicose vein left mid medial lower leg Varithenaregistered was slowly administered at 0.5-1.0 cc/second with close observation by ultrasound of its course in the vessels. Total volume utilized was: 11 cc. Following administration of Varithenaregistered the leg was elevated and the patient was asked to repeatedly dorsiflex the ankle to limit flow of Varithenaregistered into perforating veins. Once appropriate spasm had been confirmed in the treated veins, the vascular catheter was removed from the leg and light pressure was applied over the puncture site for hemostasis. The common femoral and deep superficial veins were then evaluated for flow and compressibility prior to dressing placement. The lower extremity was kept elevated at 45 degrees above the horizontal and cording material was applied over the saphenous segments and tributaries to allow for eccentric compression over the target vessels including the targeted saphenous vein(s). A multilayer dressing was applied consisting of foam pads, coban and thigh-high 20-30 mm Hg compression elastic support hose were placed on the patient. The leg was lowered only after compression had been applied and the patient was immediately ambulatory. The patient ambulated 10 minutes under supervision and was without apparent concerns at time of release. Post-care instructions include advising patient to keep post-treatment bandages in place and dry for 48 hours, avoid extended periods of inactivity, avoid heavy exercise for one week, wear compression stockings on the treated leg continuously for two weeks, to walk daily for 10 minutes over the next month. The patient was instructed to take an anti-inflammatory medicine as needed and to follow up for color duplex scan of the Saphenous veins, the treated branch saphenous varicosities, the adjacent deep veins, and additional treatment within 7 days. PERSONNEL: Andrews Dominguez RN Electronically authenticated by: ILANA GUTIERRES Date: 02/28/2024 10:05
--- OUTSIDE RECORDS SUMMARY | 2024-02-28 07:46 | XMS_ITS | CCD ---
Author Organization [facility] Care Team Providers Care Wet Inspector Optical Glass Name Role Phone HOUSE, DR SKAGGS Primary Care Unavailable GABI WEBB Attending Unavailable GABI WEBB Consulting Unavailable GABI WEBB Admitting Unavailable Allergies Allergy Classification Reported Allergen(s) Allergy Type Date of Onset Reaction(s) Facility (1 source) Chlorhexidine Drug Allergy [facility] (1 source) Methocarbamol Drug Allergy [facility] (1 source) Chlorhexidine Drug Allergy 12-16-2023 [facility] (1 source) Methocarbamol Drug Allergy 12-16-2023 [facility] Medications Current Medications Medication Drug Class(es) Dates Sig (Normalized) Sig (Original) [id number] 200 actuat albuterol 0.09 mg/actuat metered dose [...] C-Peptide, Serum 3.6 ng/mL Normal 1.1-4.4 [facility] Comment on above: Result Comment: C-Pe ptide reference interval is for fasting patients. Performed By: #### C PEPT #### [facility] [address], [place] [address] Dr. Fátima Keller DIRECT LDLon 10-01-2022 Cholesterol in LDL [Mass/Vol] 98 mg/dL Normal [facility] Comment on above: Performed By: #### L IPID, DLDL, TSH, RENAL #### [facility] [address] [place], [place] [address] Dr. Fátima Keller DLDL NORMAL SEE BELOW Normal [facility] Comment on above: Result Comment: <100 mg/dl OPTIMAL 100 - 129 mg/dl NEAR OR ABOVE OPTIMAL 130 - 159 mg/dl BORDERLINE HIGH 160 - 189 mg/dl HIGH >190 mg/dl VERY HIGH Performed By: #### L IPID, DLDL, TSH, RENAL #### [facility] [address] [place] [address] [address] Fátima Keller LIPID PROFILEon 10-01-2022 CHOL-HDL RATIO NORM SEE BELOW Normal [facility] Comment on above: Result Comment: 3.3 - 4.4 LOW RISK 4.4 - 7.1 AVERAGE RISK 7.1 - 11.0 MODERATE RISK >11.0 HIGH RISK Performed By: #### L IPID, DLDL, TSH, RENAL #### [facility] [address] [address] [address] Fátima Keller Cholesterol [Mass/Vol] 320 mg/dL Critically high <=200 [facility] Comment on above: Performed By: #### L IPID, DLDL, TSH, RENAL #### [facility] [address] [address] [address] Fátima Keller Cholesterol in HDL [Mass/Vol] 38 mg/dL Critically low 40-60 [facility] Comment on above: Performed By: #### L IPID, DLDL, TSH, RENAL #### [facility] [address] [place] [address] Dr. Fátima Keller Cholesterol in LDL [Mass/Vol] 51.8 mg/dL Normal [facility] Comment on above: Performed By: #### L IPID, DLDL, TSH, RENAL #### [facility] [address] [address] [address] Fátima Keller Cholesterol.total/ Cholesterol in HDL [Mass ratio] 8.4 {ratio} Normal [facility] Comment on above: Performed By: #### L IPID, DLDL, TSH, RENAL #### [facility] [address] [place] [address] Dr. Fátima Keller HDL NORMAL > or = 60 mg/dl - LO W CARDIOVASCULAR RISK <40 mg/dl - HIGH CARDIOVASCULAR RISK Normal [facility] Comment on above: Performed By: #### L IPID, DLDL, TSH, RENAL #### [facility] [address] [address] [address] Fátima Keller LDL CALC NORMAL SEE BELOW Normal [facility] Comment on above: Result Comment: <100 mg/dl OPTIMAL 100 - 129 mg/dl NEAR OR ABOVE OPTIMAL 130 - 159 mg/dl BORDERLINE HIGH 160 - 189 mg/dl HIGH >190 mg/dl VERY HIGH Performed By: #### L IPID, DLDL, TSH, RENAL #### [facility] [address] [address] [address] Fátima Keller Triglyceride [Mass/Vol] 1151 mg/dL Critically high <=150 [facility] Comment on above: Performed By: #### L IPID, DLDL, TSH, RENAL #### [facility] [address] [place] [address] Dr. Fátima Keller VLDL CALC 230.2 mg/dL Normal [facility] Comment on above: Performed By: #### L IPID, DLDL, TSH, RENAL #### [facility] [address] [address] [address] Fátima Keller MICROALB CREAT RATIO RANDOMo n 10-01-2022 mALB 32.2 mg/L Critically high <=30.0 [facility] Comment on above: Performed By: #### M CRR #### [facility] [address] [address] [address] Fátima Keller MALB CR RATIO 794.5 mg/g Critically high 0.0-29.9 [facility] Comment on above: Performed By: #### M CRR #### [facility] [address] [address] [address] Fátima Keller MALB CR RATIO RANGE SEE BELOW Normal [facility] Comment on above: Result Comment: NO M ICROALBUMINURIA 0-29 MG/G CLINICAL MICROALBUMINURIA 30-300 MG/G MACROALBUMINURIA >300 MG/G Performed By: #### M CRR #### [facility] [address] [address] [address] Fátima Keller URINE CREAT 40.53 mg/dL Normal 20.00-300.00 [facility] Comment on above: Performed By: #### M CRR #### [facility] [address] [address] [address] Fátima Keller RENAL FUNCTION PANELon 10-01 Albumin [Mass/Vol] 3.2 g/dL Critically low 3.4-5.0 [facility] Comment on above: Performed By: #### L IPID, DLDL, TSH, RENAL #### [facility] [address] [address] [address] Fátima Keller Calcium [Mass/Vol] 9.5 mg/dL Normal 8.5-10.1 [facility] Comment on above: Performed By: #### L IPID, DLDL, TSH, RENAL #### [facility] [address] [place] [address] Dr. Fátima Keller Chloride [Moles/Vol] 99 mmol/L Normal 98-107 [facility] Comment on above: Performed By: #### L IPID, DLDL, TSH, RENAL #### [facility] [address] [place] [address] Dr. Fátima Keller CO2 [Moles/Vol] 24.6 mmol/L Normal 21.0-32.0 [facility] Comment on above: Performed By: #### L IPID, DLDL, TSH, RENAL #### [facility] [address] [place] [address] Dr. Fátima Keller Creatinine [Mass/Vol] 0.86 mg/dL Normal 0.70-1.30 [facility] Comment on above: Performed By: #### L IPID, DLDL, TSH, RENAL #### [facility] [address] [place] [address] Dr. Fátima Keller EGFR-AF BAHAMIAN >60 Normal >=60 [facility] Comment on above: Performed By: #### L IPID, DLDL, TSH, RENAL #### [facility] [address] [place] [address] Dr. Fátima Keller EGFR-NON AF BAHAMIAN >60 Normal >=60 [facility] Comment on above: Performed By: #### L IPID, DLDL, TSH, RENAL #### [facility] [address] [place] [address] Dr. Fátima Keller Glucose [Mass/Vol] 222 mg/dL Critically high 74-106 T [facility] Comment on above: Performed By: #### L IPID, DLDL, TSH, RENAL #### [facility] [address] [place] [address] Dr. Fátima Keller Phosphate [Mass/Vol] 4.2 mg/dL Normal 2.6-4.7 [facility] Comment on above: Performed By: #### L IPID, DLDL, TSH, RENAL #### [facility] [address] [place] [address] Dr. Fátima Keller Potassium [Moles/Vol] 4.0 mmol/L Normal 3.5-5.1 [facility] Comment on above: Performed By: #### L IPID, DLDL, TSH, RENAL #### [facility] [address] [place] [address] Dr. Fátima Keller Sodium [Moles/Vol] 135 mmol/L Critically low 136-145 [facility] Comment on above: Performed By: #### L IPID, DLDL, TSH, RENAL #### [facility] [address] [place] [address] Dr. Fátima Keller Urea nitrogen [Mass/Vol] 22.0 mg/dL Critically high 7.0-18.0 [facility] Comment on above: Performed By: #### L IPID, DLDL, TSH, RENAL #### [facility] [address] [place] [address] Dr. Fátima Keller TSHon 10-01-2022 TSH 1.680 uIU/mL Normal 0.358-3.740 [facility] Comment on above: Performed By: #### L IPID, DLDL, TSH, RENAL #### [facility] [address] [place] [address] Dr. Fátima Keller VITAMIN D 25 OHon 10-01-2022 VIT D 25-OH 8.3 ng/mL Normal [facility] Comment on above: Performed By: #### V ITAD #### [facility] [address] [address] [address] Fátima Keller VIT D RANGES SEE BELOW Normal [facility] Comment on above: Result Comment: <20 ng/mL Vit D deficient 20 - <30 ng/mL Vit D insufficient 30 - 100 ng/mL Vit D sufficient >100 ng/mL Potential Toxicity Performed By: #### V ITAD #### [facility] [address] [address] [address] Fátima Keller Vital Signs Date Time Vital Sign Value Performing Clinician Faci lity 12-16-2023 12:20-0400 Body height 185.42 cm [facility] 12-16-2023 12:20-0400 Body mass index (BMI) [Ratio] 26.4 kg/m2 [facility] 12-16-2023 12:20-0400 Body temperature 98.3 [degF] [facility] 12-16-2023 12:20-0400 Body weight 90.71 kg [facility] 12-16-2023 12:20-0400 Heart rate 71 /min [facility] 12-16-2023 12:20-0400 Respiratory rate 18 /min [facility] 12-16-2023 12:20-0400 SaO2% (BldA) [Mass fraction] 99 % [facility] Encounters Encounter Date Encounter Type Care Provider Facility Start: 12-16-2023 End: 12-16-2023 ambulatory [facility] Work Phone: Start: 12-16-2023 End: 12-16-2023 Patient encounter procedure [facility] Work Phone: Start: 10-01-2022 End: 10-02-[address] GILES RUIZ Facility: Payers Date Payer Category Payer Unknown [id number] 1957 Unknown [id number] Medicaid [facility] Medicaid [id number] Social History Date Type Detail Facility [facility]: [facility] Start: 1985 Sex Assigned At Male F [facility] Evaluation note Note Date & Type Note Facility Evaluation note No assessment information availa ble [facility] Work Phone: Summary Purpose Family History Relationship [...] content) DATE CREATED AUTHOR 11/13/2022 [facility] Care Teams (unrecognized sec tion and [...] BE BASED ON THE PRIMARY CLINICAL RECORDS. [employer] provides no warranty or guarantee of the accuracy or completeness of information in this document.
== END 2024-02-28 07:32 | disposition home or self-care (01) ==
LOC: VC 07:43
PROVIDERS: PCP Radiology Diagnostic Radiology; Visit Provider Radiology Diagnostic Radiology
DX: I83.813 Varicose veins of bilateral lower extremities with pain (principal)
CPT/HCPCS: 36466

== ENCOUNTER 2024-03-06 08:38 | Outpatient (OUT) | payer MEDICAID, SELFPAY ==
--- NOTE | 2024-03-06 08:55 | VEIN_ITS ---
Patient Name: BLAKE CARDONA MR#: [id number] : 1985 Exam Date: 03/06/2024 Ordering Doctor: DR PATRICK GRESHAM M.D. RADIOLOGY REPORT PROCEDURE: [facility] EST [facility] - OFFICE VISIT FOLLOW UP COMPARISON: [facility] EST [facility], 02/14/2024. [facility] EST [facility], 01/24/2024. PROGRESS NOTES: The patient reports no significant problems following micro foam chemical ablation of incompetent varicose veins. The patient has worn his compression stockings. The patient did not require oral analgesics. Physical exam demonstrates multiple thrombosed varicose veins with mild hemosiderin staining. Sun exposure avoidance was explained to the patient with either cover or use of mineral sunscreens. Review of the ultrasound performed the same day demonstrates occlusive thrombus extending throughout the treated varicose veins. A small stable deep vein thrombus identified in the right posterior tibial vein. At this time the patient's treatments are completed. The patient was asked to return as needed otherwise in 2 years for follow-up exam. VEIN/[facility] EST LMTD IMPRESSION: 1. Successful ablation of incompetent varicose veins 2. Patient's treatment plan is now complete. PLAN: Follow-up in 2 years, earlier if needed Nurse notes, history and physical were reviewed and confirmed, see attached forms. The nurse was present throughout the physical exam and consultation Dictated by: Patrick Gresham MD on 03/06/2024 at 09:37 Approved by: Patrick Gresham MD on 03/06/2024 at 09:39
--- NOTE | 2024-03-06 08:55 | VEIN_ITS ---
Patient Name: BLAKE CARDONA MR#: [id number] : 1985 Exam Date: 03/06/2024 Ordering Doctor: DR ILANA GRESHAM M.D. RADIOLOGY REPORT PROCEDURE: VC EXT VENOUS JONATHON LIMITED COMPARISON: None. INDICATIONS: I80.03 Phlebitis of superficial veins of jonathon lower extremies TECHNIQUE: Lower extremity lind scale and Duplex Doppler evaluation of the deep venous system from the inguinal ligament through the calf veins. FINDINGS: REGION: Right lower extremity. THROMBI: Acute and chronic appearing thrombi. Chemically induced thrombus in multiple varicose veins. Thrombus stable in right PTV. COMPRESSIBILITY: Non-compressible segments. FLOW: Areas on no flow. OTHER: No significant varicose veins remain. REGION: Left lower extremity. THROMBI: Acute and chronic appearing thrombi. Chemically induced thrombus in multiple varicose veins. COMPRESSIBILITY: Non-compressible segments. FLOW: Areas on no flow. OTHER: No significant varicose veins remain. *Exam performed in accordance with [facility] practice guidelines- Peripheral venous ultrasound, December 10, 2009. CONCLUSION: Post ablation occlusion of treated incompetent varicose veins. No residual varicose veins are observed Dictated by: Ilana Gresham MD on 03/06/2024 at 09:29 Approved by: Ilana Gresham MD on 03/06/2024 at 09:29
--- OUTSIDE RECORDS SUMMARY | 2024-03-06 08:55 | XMS_ITS | CCD ---
Author Organization [facility] Care Team Providers Care Schedule Checker Name Role Phone HOUSE, DR SKAGGS Primary Care Unavailable GABI WEBB Attending Unavailable GABI WEBB Consulting Unavailable GABI WEBB Admitting Unavailable Allergies Allergy Classification Reported Allergen(s) Allergy Type Date of Onset Reaction(s) Facility (1 source) Chlorhexidine Drug Allergy [facility] (1 source) Methocarbamol Drug Allergy [facility] (1 source) Chlorhexidine Drug Allergy 12-16-2023 [facility] (1 source) Methocarbamol Drug Allergy 12-16-2023 [facility] Medications Current Medications Medication Drug Class(es) Dates Sig (Normalized) Sig (Original) [id number] 200 actuat albuterol 0.09 mg/actuat metered dose [...] 3.6 ng/mL Normal 1.1-4.4 [facility] Comment on above: Result Comment: C-Pe ptide reference interval is for fasting patients. Performed By: #### C PEPT #### [facility] [address] [address] [address] Fátima Keller DIRECT LDLon 10-01-2022 Cholesterol in LDL [Mass/Vol] 98 mg/dL Normal [facility] Comment on above: Performed By: #### L IPID, DLDL, TSH, RENAL #### [facility] [address] [place], [place] [address] Dr. Fátima Keller DLDL NORMAL SEE BELOW Normal [facility] Comment on above: Result Comment: <100 mg/dl OPTIMAL 100 - 129 mg/dl NEAR OR ABOVE OPTIMAL 130 - 159 mg/dl BORDERLINE HIGH 160 - 189 mg/dl HIGH >190 mg/dl VERY HIGH Performed By: #### L IPID, DLDL, TSH, RENAL #### [facility] [address] [address] [address] Fátima Keller LIPID PROFILEon 10-01-2022 CHOL-HDL RATIO NORM SEE BELOW Normal [facility] Comment on above: Result Comment: 3.3 - 4.4 LOW RISK 4.4 - 7.1 AVERAGE RISK 7.1 - 11.0 MODERATE RISK >11.0 HIGH RISK Performed By: #### L IPID, DLDL, TSH, RENAL #### [facility] [address] [address] [address] Fátima Keller Cholesterol [Mass/Vol] 320 mg/dL Critically high <=200 [facility] Comment on above: Performed By: #### L IPID, DLDL, TSH, RENAL #### [facility] [address] [address] [address] Fátima Keller Cholesterol in HDL [Mass/Vol] 38 mg/dL Critically low 40-60 [facility] Comment on above: Performed By: #### L IPID, DLDL, TSH, RENAL #### [facility] [address] [address] [address] Fátima Keller Cholesterol in LDL [Mass/Vol] 51.8 mg/dL Normal [facility] Comment on above: Performed By: #### L IPID, DLDL, TSH, RENAL #### [facility] [address] [address] [address] Fátima Keller Cholesterol.total/ Cholesterol in HDL [Mass ratio] 8.4 {ratio} Normal [facility] Comment on above: Performed By: #### L IPID, DLDL, TSH, RENAL #### [facility] [address] [address] [address] Fátima Keller HDL NORMAL > or = 60 mg/dl - LO W CARDIOVASCULAR RISK <40 mg/dl - HIGH CARDIOVASCULAR RISK Normal [facility] Comment on above: Performed By: #### L IPID, DLDL, TSH, RENAL #### [facility] [address] [place] [address] Dr. Fátima Keller LDL CALC NORMAL SEE BELOW Normal [facility] Comment on above: Result Comment: <100 mg/dl OPTIMAL 100 - 129 mg/dl NEAR OR ABOVE OPTIMAL 130 - 159 mg/dl BORDERLINE HIGH 160 - 189 mg/dl HIGH >190 mg/dl VERY HIGH Performed By: #### L IPID, DLDL, TSH, RENAL #### [facility] [address] [place] [address] Dr. Fátima Keller Triglyceride [Mass/Vol] 1151 mg/dL Critically high <=150 [facility] Comment on above: Performed By: #### L IPID, DLDL, TSH, RENAL #### [facility] [address] [place] [address] Dr. Fátima Keller VLDL CALC 230.2 mg/dL Normal [facility] Comment on above: Performed By: #### L IPID, DLDL, TSH, RENAL #### [facility] [address] [place] [address] Dr. Fátima Keller MICROALB CREAT RATIO RANDOMo n 10-01-2022 mALB 32.2 mg/L Critically high <=30.0 [facility] Comment on above: Performed By: #### M CRR #### [facility] [address] [place] [address] Dr. Fátima Keller MALB CR RATIO 794.5 mg/g Critically high 0.0-29.9 [facility] Comment on above: Performed By: #### M CRR #### [facility] [address] [place] [address] Dr. Fátima Keller MALB CR RATIO RANGE SEE BELOW Normal [facility] Comment on above: Result Comment: NO M ICROALBUMINURIA 0-29 MG/G CLINICAL MICROALBUMINURIA 30-300 MG/G MACROALBUMINURIA >300 MG/G Performed By: #### M CRR #### [facility] [address] [place] [address] Dr. Fátima Keller URINE CREAT 40.53 mg/dL Normal 20.00-300.00 [facility] Comment on above: Performed By: #### M CRR #### [facility] [address] [place] [address] Dr. Fátima Keller RENAL FUNCTION PANELon 10-01 Albumin [Mass/Vol] 3.2 g/dL Critically low 3.4-5.0 [facility] Comment on above: Performed By: #### L IPID, DLDL, TSH, RENAL #### [facility] [address] [place] [address] Dr. Fátima Keller Calcium [Mass/Vol] 9.5 mg/dL Normal 8.5-10.1 [facility] Comment on above: Performed By: #### L IPID, DLDL, TSH, RENAL #### [facility] [address] [place] [address] Dr. Fátima Keller Chloride [Moles/Vol] 99 mmol/L Normal 98-107 [facility] Comment on above: Performed By: #### L IPID, DLDL, TSH, RENAL #### [facility] [address] [place] [address] Dr. Fátima Keller CO2 [Moles/Vol] 24.6 mmol/L Normal 21.0-32.0 [facility] Comment on above: Performed By: #### L IPID, DLDL, TSH, RENAL #### [facility] [address] [place] [address] Dr. Fátima Keller Creatinine [Mass/Vol] 0.86 mg/dL Normal 0.70-1.30 [facility] Comment on above: Performed By: #### L IPID, DLDL, TSH, RENAL #### [facility] [address] [place] [address] Dr. Fátima Keller EGFR-AF MALAYSIAN >60 Normal >=60 [facility] Comment on above: Performed By: #### L IPID, DLDL, TSH, RENAL #### [facility] [address] [place] [address] Dr. Fátima Keller EGFR-NON AF MALAYSIAN >60 Normal >=60 [facility] Comment on above: Performed By: #### L IPID, DLDL, TSH, RENAL #### [facility] [address] [address] [address] Fátima Keller Glucose [Mass/Vol] 222 mg/dL Critically high 74-[address] [facility] Comment on above: Performed By: #### L IPID, DLDL, TSH, RENAL #### [facility] [address] [place] [address] Dr. Fátima Keller Phosphate [Mass/Vol] 4.2 mg/dL Normal 2.6-4.7 [facility] Comment on above: Performed By: #### L IPID, DLDL, TSH, RENAL #### [facility] [address] [place] [address] Dr. Fátima Keller Potassium [Moles/Vol] 4.0 mmol/L Normal 3.5-5.1 [facility] Comment on above: Performed By: #### L IPID, DLDL, TSH, RENAL #### [facility] [address] [place] [address] Dr. Fátima Keller Sodium [Moles/Vol] 135 mmol/L Critically low 136-145 [facility] Comment on above: Performed By: #### L IPID, DLDL, TSH, RENAL #### [facility] [address] [place] [address] Dr. Fátima Keller Urea nitrogen [Mass/Vol] 22.0 mg/dL Critically high 7.0-18.0 [facility] Comment on above: Performed By: #### L IPID, DLDL, TSH, RENAL #### [facility] [address] [place] [address] Dr. Fátima Keller TSHon 10-01-2022 TSH 1.680 uIU/mL Normal 0.358-3.740 [facility] Comment on above: Performed By: #### L IPID, DLDL, TSH, RENAL #### [facility] [address] [place] [address] Dr. Fátima Keller VITAMIN D 25 OHon 10-01-2022 VIT D 25-OH 8.3 ng/mL Normal [facility] Comment on above: Performed By: #### V ITAD #### [facility] [address] [address] [address] Fátima Keller VIT D RANGES SEE BELOW Normal [facility] Comment on above: Result Comment: <20 ng/mL Vit D deficient 20 - <30 ng/mL Vit D insufficient 30 - 100 ng/mL Vit D sufficient >100 ng/mL Potential Toxicity Performed By: #### V ITAD #### [facility] [address] [place] [address] Dr. Fátima Keller Vital Signs Date Time Vital Sign Value Performing Clinician Faci lity 12-16-2023 12:20-0400 Body height 185.42 cm [facility] 12-16-2023 12:20-0400 Body mass index (BMI) [Ratio] 26.4 kg/m2 [facility] 12-16-2023 12:20-0400 Body temperature 98.3 [degF] [facility] 12-16-2023 12:20-0400 Body weight 90.71 kg [facility] 12-16-2023 12:20-0400 Heart rate 71 /min [facility] 12-16-2023 12:20-0400 Respiratory rate 18 /min [facility] 12-16-2023 12:20-0400 SaO2% (BldA) [Mass fraction] 99 % [facility] Encounters Encounter Date Encounter Type Care Provider Facility Start: 12-16-2023 End: 12-16-2023 ambulatory [facility] Work Phone: Start: 12-16-2023 End: 12-16-2023 Patient encounter procedure [facility] Work Phone: Start: 10-01-2022 End: 10-02-[address] GILES RUIZ Facility:H1 Payers Date Payer Category Payer Unknown [id number] [id number] [id number] 1957 Unknown [id number] Medicaid [facility] Medicaid [id number] Social History Date Type Detail Facility Start: 12-16-2023 Tobacco smoking stat us NHIS Ex-smoker (finding) [facility] Start: 1985 Sex Assigned At Male F [facility] Evaluation note Note Date & Type Note Facility Evaluation note No assessment information availa ble [facility] Work Phone: Summary Purpose Family History [...] content) DATE CREATED AUTHOR 11/13/2022 [facility] Care Teams (unrecognized sec tion [...] BE BASED ON THE PRIMARY CLINICAL RECORDS. [employer] provides no warranty or guarantee of the accuracy or completeness of information in this document.
== END 2024-03-06 08:39 | disposition home or self-care (01) ==
LOC: VC 08:52
PROVIDERS: PCP Radiology Diagnostic Radiology; Visit Provider Radiology Diagnostic Radiology
DX: I80.03 Phlebitis and thrombophlebitis of superficial vessels of lower extremities, bilateral (principal)
CPT/HCPCS: 93970; G0463

== ENCOUNTER 2024-03-09 08:19 | Outpatient (OUT) | payer MEDICAID, SELFPAY ==
--- OUTSIDE RECORDS SUMMARY | 2024-03-06 09:55 | XMS_ITS | CCD ---
Author Organization [facility] Care Team Providers Care Neon Molder Name Role Phone HOUSE, DR SKAGGS Primary Care Unavailable GABI WEBB Attending Unavailable GABI WEBB Consulting Unavailable GABI WEBB Admitting Unavailable Allergies Allergy Classification Reported Allergen(s) Allergy Type Date of Onset Reaction(s) Facility (1 source) Chlorhexidine Drug Allergy [facility] (1 source) Methocarbamol Drug Allergy [facility] (1 source) Chlorhexidine Drug Allergy 12-16-2023 [facility] (1 source) Methocarbamol Drug Allergy 12-16-2023 [facility] Medications Current Medications Medication Drug Class(es) Dates Sig (Normalized) Sig (Original) [id number] 200 actuat albuterol 0.09 mg/actuat metered dose [...] C-Peptide, Serum 3.6 ng/mL Normal 1.1-4.4 [facility] Comment on above: Result Comment: C-Pe ptide reference interval is for fasting patients. Performed By: #### C PEPT #### [facility] [address] [address] [address] Fátima Keller DIRECT LDLon 10-01-2022 Cholesterol in LDL [Mass/Vol] 98 mg/dL Normal [facility] Comment on above: Performed By: #### L IPID, DLDL, TSH, RENAL #### [facility] [address] [place], [place] [address] Dr. Fátima Keller DLDL NORMAL SEE BELOW Normal [facility] Comment on above: Result Comment: <100 mg/dl OPTIMAL 100 - 129 mg/dl NEAR OR ABOVE OPTIMAL 130 - 159 mg/dl BORDERLINE HIGH 160 - 189 mg/dl HIGH >190 mg/dl VERY HIGH Performed By: #### L IPID, DLDL, TSH, RENAL #### [facility] [address] [address] [address] Fátima Keller LIPID PROFILEon 10-01-2022 CHOL-HDL RATIO NORM SEE BELOW Normal [facility] Comment on above: Result Comment: 3.3 - 4.4 LOW RISK 4.4 - 7.1 AVERAGE RISK 7.1 - 11.0 MODERATE RISK >11.0 HIGH RISK Performed By: #### L IPID, DLDL, TSH, RENAL #### [facility] [address] [address] [address] Fátima Keller Cholesterol [Mass/Vol] 320 mg/dL Critically high <=200 [facility] Comment on above: Performed By: #### L IPID, DLDL, TSH, RENAL #### [facility] [address] [address] [address] Fátima Keller Cholesterol in HDL [Mass/Vol] 38 mg/dL Critically low 40-60 [facility] Comment on above: Performed By: #### L IPID, DLDL, TSH, RENAL #### [facility] [address] [address] [address] Fátima Keller Cholesterol in LDL [Mass/Vol] 51.8 mg/dL Normal [facility] Comment on above: Performed By: #### L IPID, DLDL, TSH, RENAL #### [facility] [address] [address] [address] Fátima Keller Cholesterol.total/ Cholesterol in HDL [Mass ratio] 8.4 {ratio} Normal [facility] Comment on above: Performed By: #### L IPID, DLDL, TSH, RENAL #### [facility] [address] [address] [address] Fátima Keller HDL NORMAL > or = 60 mg/dl - LO W CARDIOVASCULAR RISK <40 mg/dl - HIGH CARDIOVASCULAR RISK Normal [facility] Comment on above: Performed By: #### L IPID, DLDL, TSH, RENAL #### [facility] [address] [place] [address] Dr. Fátima Keller LDL CALC NORMAL SEE BELOW Normal [facility] Comment on above: Result Comment: <100 mg/dl OPTIMAL 100 - 129 mg/dl NEAR OR ABOVE OPTIMAL 130 - 159 mg/dl BORDERLINE HIGH 160 - 189 mg/dl HIGH >190 mg/dl VERY HIGH Performed By: #### L IPID, DLDL, TSH, RENAL #### [facility] [address] [place] [address] Dr. Fátima Keller Triglyceride [Mass/Vol] 1151 mg/dL Critically high <=150 [facility] Comment on above: Performed By: #### L IPID, DLDL, TSH, RENAL #### [facility] [address] [place] [address] Dr. Fátima Keller VLDL CALC 230.2 mg/dL Normal [facility] Comment on above: Performed By: #### L IPID, DLDL, TSH, RENAL #### [facility] [address] [place] [address] Dr. Fátima Keller MICROALB CREAT RATIO RANDOMo n 10-01-2022 mALB 32.2 mg/L Critically high <=30.0 [facility] Comment on above: Performed By: #### M CRR #### [facility] [address] [place] [address] Dr. Fátima Keller MALB CR RATIO 794.5 mg/g Critically high 0.0-29.9 [facility] Comment on above: Performed By: #### M CRR #### [facility] [address] [place] [address] Dr. Fátima Keller MALB CR RATIO RANGE SEE BELOW Normal [facility] Comment on above: Result Comment: NO M ICROALBUMINURIA 0-29 MG/G CLINICAL MICROALBUMINURIA 30-300 MG/G MACROALBUMINURIA >300 MG/G Performed By: #### M CRR #### [facility] [address] [place] [address] Dr. Fátima Keller URINE CREAT 40.53 mg/dL Normal 20.00-300.00 [facility] Comment on above: Performed By: #### M CRR #### [facility] [address] [place] [address] Dr. Fátima Keller RENAL FUNCTION PANELon 10-01 Albumin [Mass/Vol] 3.2 g/dL Critically low 3.4-5.0 Th [facility] Comment on above: Performed By: #### L IPID, DLDL, TSH, RENAL #### [facility] [address] [place] [address] Dr. Fátima Keller Calcium [Mass/Vol] 9.5 mg/dL Normal 8.5-10.1 [facility] Comment on above: Performed By: #### L IPID, DLDL, TSH, RENAL #### [facility] [address] [place] [address] Dr. Fátima Keller Chloride [Moles/Vol] 99 mmol/L Normal 98-107 [facility] Comment on above: Performed By: #### L IPID, DLDL, TSH, RENAL #### [facility] [address] [place] [address] Dr. Fátima Keller CO2 [Moles/Vol] 24.6 mmol/L Normal 21.0-32.0 [facility] Comment on above: Performed By: #### L IPID, DLDL, TSH, RENAL #### [facility] [address] [place] [address] Dr. Fátima Keller Creatinine [Mass/Vol] 0.86 mg/dL Normal 0.70-1.30 [facility] Comment on above: Performed By: #### L IPID, DLDL, TSH, RENAL #### [facility] [address] [place] [address] Dr. Fátima Keller EGFR-AF LATVIAN >60 Normal >=60 [facility] Comment on above: Performed By: #### L IPID, DLDL, TSH, RENAL #### [facility] [address] [place] [address] Dr. Fátima Keller EGFR-NON AF LATVIAN >60 Normal >=60 [facility] Comment on above: Performed By: #### L IPID, DLDL, TSH, RENAL #### [facility] [address] [address] [address] Fátima Keller Glucose [Mass/Vol] 222 mg/dL Critically high 74-106 T [facility] Comment on above: Performed By: #### L IPID, DLDL, TSH, RENAL #### [facility] [address] [place] [address] Dr. Fátima Keller Phosphate [Mass/Vol] 4.2 mg/dL Normal 2.6-4.7 [facility] Comment on above: Performed By: #### L IPID, DLDL, TSH, RENAL #### [facility] [address] [place] [address] Dr. Fátima Keller Potassium [Moles/Vol] 4.0 mmol/L Normal 3.5-5.1 [facility] Comment on above: Performed By: #### L IPID, DLDL, TSH, RENAL #### [facility] [address] [place] [address] Dr. Fátima Keller Sodium [Moles/Vol] 135 mmol/L Critically low 136-145 [facility] Comment on above: Performed By: #### L IPID, DLDL, TSH, RENAL #### [facility] [address] [place] [address] Dr. Fátima Keller Urea nitrogen [Mass/Vol] 22.0 mg/dL Critically high 7.0-18.0 [facility] Comment on above: Performed By: #### L IPID, DLDL, TSH, RENAL #### [facility] [address] [place] [address] Dr. Fátima Keller TSHon 10-01-2022 TSH 1.680 uIU/mL Normal 0.358-3.740 [facility] Comment on above: Performed By: #### L IPID, DLDL, TSH, RENAL #### [facility] [address] [place] [address] Dr. Fátima Keller VITAMIN D 25 [place]on 10-01-2022 VIT D 25-OH 8.3 ng/mL Normal [facility] Comment on above: Performed By: #### V ITAD #### [facility] [address] [address] [address] Fátima Keller VIT D RANGES SEE BELOW Normal [facility] Comment on above: Result Comment: <20 ng/mL Vit D deficient 20 - <30 ng/mL Vit D insufficient 30 - 100 ng/mL Vit D sufficient >100 ng/mL Potential Toxicity Performed By: #### V ITAD #### [facility] [address] [place] [address] Dr. Fátima Keller Vital Signs Date Time Vital Sign Value Performing Clinician Faci lity 12-16-2023 12:20-0400 Body height 185.42 cm [facility] 12-16-2023 12:20-0400 Body mass index (BMI) [Ratio] 26.4 kg/m2 [facility] 12-16-2023 12:20-0400 Body temperature 98.3 [degF] [facility] 12-16-2023 12:20-0400 Body weight 90.71 kg [facility] 12-16-2023 12:20-0400 Heart rate 71 /min [facility] 12-16-2023 12:20-0400 Respiratory rate 18 /min [facility] 12-16-2023 12:20-0400 SaO2% (BldA) [Mass fraction] 99 % [facility] Encounters Encounter Date Encounter Type Care Provider Facility Start: 12-16-2023 End: 12-16-2023 ambulatory [facility] Work Phone: Start: 12-16-2023 End: 12-16-2023 Patient encounter procedure [facility] Work Phone: Start: 10-01-2022 End: 10-02-[address] GILES RUIZ Facility:H1 Payers Date Payer Category Payer Unknown [id number] 1957 Unknown [id number] Medicaid [facility] Medicaid [id number] Social History Date Type Detail Facility Start: 12-16-2023 Tobacco smoking stat us NHIS Ex-smoker (finding) [facility] Start: 1985 Sex Assigned At Male F [facility] Evaluation note Note Date & Type Note Facility Evaluation note No assessment information availa ble [facility] Work Phone: Summary Purpose Family History [...] content) DATE CREATED AUTHOR 11/13/2022 [facility] Care Teams (unrecognized sec tion and content) [...] BE BASED ON THE PRIMARY CLINICAL RECORDS. [employer] provides no warranty or guarantee of the accuracy or completeness of information in this document.
[2024-03-09 09:07] LABS: Creatinine Urine Random 96.29 mg/dL (20.00-300.00); Microalbum Creatinine Ratio Ur 254.4 mg/g (0.0-29.9); Microalbumin Urine Random 24.5 mg/dL (<=30.0)
[2024-03-09 09:45] LABS: Albumin Level 3.4 g/dL (3.4-5.0); Anion Gap 15.5; BUN Creatinine Ratio 18.6; Calcium 8.9 mg/dL (8.5-10.1); Carbon Dioxide 23.5 mmol/L (21.0-32.0); Chloride 102 mmol/L (98-107); Chol HDL Ratio 6.2; Cholesterol 231 mg/dL (<=200); Estimated GFR (African America >60 (>=60); Estimated GFR (Non-African Ame >60 (>=60); Glucose 149 mg/dL (74-106); HDL Cholesterol 37 mg/dL (40-60); Phosphorus 3.4 mg/dL (2.6-4.7); Sodium 137 mmol/L (136-145); Triglycerides 346 mg/dL (<=150); VLDL CHOLESTEROL 69.2 mg/dL
--- OUTSIDE RECORDS SUMMARY | 2024-03-10 08:23 | XMS_ITS | CCD ---
Author Organization [facility] Care Team Providers Care Bill Checker Name Role Phone HOUSE, DR SKAGGS Primary Care Unavailable GABI WEBB Attending Unavailable GABI WEBB Consulting Unavailable GABI WEBB Admitting Unavailable Allergies Allergy Classification Reported Allergen(s) Allergy Type Date of Onset Reaction(s) Facility (1 source) Chlorhexidine Drug Allergy [facility] (1 source) Methocarbamol Drug Allergy [facility] (1 source) Chlorhexidine Drug Allergy 12-16-2023 [facility] (1 source) Methocarbamol Drug Allergy 12-16-2023 [facility] Medications Current Medications Medication Drug Class(es) Dates Sig (Normalized) Sig (Original) [id number] 200 actuat albuterol 0.09 mg/actuat metered dose [...] C-Peptide, Serum 3.6 ng/mL Normal 1.1-4.4 [facility] Comment on above: Result Comment: C-Pe ptide reference interval is for fasting patients. Performed By: #### C PEPT #### [facility] [address] [address] [address] Fátima Keller DIRECT LDLon 10-01-2022 Cholesterol in LDL [Mass/Vol] 98 mg/dL Normal [facility] Comment on above: Performed By: #### L IPID, DLDL, TSH, RENAL #### [facility] [address] [place], [place] [address] Dr[address] Fátima Keller DLDL NORMAL SEE BELOW Normal [facility] Comment on above: Result Comment: <100 mg/dl OPTIMAL 100 - 129 mg/dl NEAR OR ABOVE OPTIMAL 130 - 159 mg/dl BORDERLINE HIGH 160 - 189 mg/dl HIGH >190 mg/dl VERY HIGH Performed By: #### L IPID, DLDL, TSH, RENAL #### [facility] [address] [address] [address] Fátima Keller LIPID PROFILEon 10-01-2022 CHOL-HDL RATIO NORM SEE BELOW Normal [facility] Comment on above: Result Comment: 3.3 - 4.4 LOW RISK 4.4 - 7.1 AVERAGE RISK 7.1 - 11.0 MODERATE RISK >11.0 HIGH RISK Performed By: #### L IPID, DLDL, TSH, RENAL #### [facility] [address] [address] [address] Fátima Keller Cholesterol [Mass/Vol] 320 mg/dL Critically high <=200 [facility] Comment on above: Performed By: #### L IPID, DLDL, TSH, RENAL #### [facility] [address] [address] [address] Fátima Keller Cholesterol in HDL [Mass/Vol] 38 mg/dL Critically low 40-60 [facility] Comment on above: Performed By: #### L IPID, DLDL, TSH, RENAL #### [facility] [address] [address] [address] Fátima Keller Cholesterol in LDL [Mass/Vol] 51.8 mg/dL Normal [facility] Comment on above: Performed By: #### L IPID, DLDL, TSH, RENAL #### [facility] [address] [address] [address] Fátima Keller Cholesterol.total/ Cholesterol in HDL [Mass ratio] 8.4 {ratio} Normal [facility] Comment on above: Performed By: #### L IPID, DLDL, TSH, RENAL #### [facility] [address] [address] [address] Fátima Keller HDL NORMAL > or = 60 mg/dl - LO W CARDIOVASCULAR RISK <40 mg/dl - HIGH CARDIOVASCULAR RISK Normal [facility] Comment on above: Performed By: #### L IPID, DLDL, TSH, RENAL #### [facility] [address] [place] [address] Dr. Fátima Keller LDL CALC NORMAL SEE BELOW Normal [facility] Comment on above: Result Comment: <100 mg/dl OPTIMAL 100 - 129 mg/dl NEAR OR ABOVE OPTIMAL 130 - 159 mg/dl BORDERLINE HIGH 160 - 189 mg/dl HIGH >190 mg/dl VERY HIGH Performed By: #### L IPID, DLDL, TSH, RENAL #### [facility] [address] [place] [address] Dr. Fátima Keller Triglyceride [Mass/Vol] 1151 mg/dL Critically high <=150 [facility] Comment on above: Performed By: #### L IPID, DLDL, TSH, RENAL #### [facility] [address] [place] [address] Dr. Fátima Keller VLDL CALC 230.2 mg/dL Normal [facility] Comment on above: Performed By: #### L IPID, DLDL, TSH, RENAL #### [facility] [address] [place] [address] Dr. Fátima Keller MICROALB CREAT RATIO RANDOMo n 10-01-2022 mALB 32.2 mg/L Critically high <=30.0 [facility] Comment on above: Performed By: #### M CRR #### [facility] [address] [place] [address] Dr. Fátima Keller MALB CR RATIO 794.5 mg/g Critically high 0.0-29.9 [facility] Comment on above: Performed By: #### M CRR #### [facility] [address] [place] [address] Dr. Fátima Keller MALB CR RATIO RANGE SEE BELOW Normal [facility] Comment on above: Result Comment: NO M ICROALBUMINURIA 0-29 MG/G CLINICAL MICROALBUMINURIA 30-300 MG/G MACROALBUMINURIA >300 MG/G Performed By: #### M CRR #### [facility] [address] [place] [address] Dr. Fátima Keller URINE CREAT 40.53 mg/dL Normal 20.00-300.00 [facility] Comment on above: Performed By: #### M CRR #### [facility] [address] [place] [address] Dr. Fátima Keller RENAL FUNCTION PANELon 10-01 Albumin [Mass/Vol] 3.2 g/dL Critically low 3.4-5.0 [facility] [place] [facility] Comment on above: Performed By: #### L IPID, DLDL, TSH, RENAL #### [facility] [address] [place] [address] Dr. Fátima Keller Calcium [Mass/Vol] 9.5 mg/dL Normal 8.5-10.1 [facility] Comment on above: Performed By: #### L IPID, DLDL, TSH, RENAL #### [facility] [address] [place] [address] Dr. Fátima Keller Chloride [Moles/Vol] 99 mmol/L Normal 98-107 [facility] Comment on above: Performed By: #### L IPID, DLDL, TSH, RENAL #### [facility] [address] [place] [address] Dr. Fátima Keller CO2 [Moles/Vol] 24.6 mmol/L Normal 21.0-32.0 [facility] Comment on above: Performed By: #### L IPID, DLDL, TSH, RENAL #### [facility] [address] [place] [address] Dr. Fátima Keller Creatinine [Mass/Vol] 0.86 mg/dL Normal 0.70-1.30 [facility] Comment on above: Performed By: #### L IPID, DLDL, TSH, RENAL #### [facility] [address] [place] [address] Dr. Fátima Keller EGFR-AF MONTENEGRIN >60 Normal >=60 [facility] Comment on above: Performed By: #### L IPID, DLDL, TSH, RENAL #### [facility] [address] [place] [address] Dr. Fátima Keller EGFR-NON AF MONTENEGRIN >60 Normal >=60 [facility] Comment on above: Performed By: #### L IPID, DLDL, TSH, RENAL #### [facility] [address] [address] [address] Fátima Keller Glucose [Mass/Vol] 222 mg/dL Critically high 74-106 [facility] Comment on above: Performed By: #### L IPID, DLDL, TSH, RENAL #### [facility] [address] [place] [address] Dr. Fátima Keller Phosphate [Mass/Vol] 4.2 mg/dL Normal 2.6-4.7 [facility] Comment on above: Performed By: #### L IPID, DLDL, TSH, RENAL #### [facility] [address] [place] [address] Dr. Fátima Keller Potassium [Moles/Vol] 4.0 mmol/L Normal 3.5-5.1 [facility] Comment on above: Performed By: #### L IPID, DLDL, TSH, RENAL #### [facility] [address] [place] [address] Dr. Fátima Keller Sodium [Moles/Vol] 135 mmol/L Critically low 136-145 [facility] Comment on above: Performed By: #### L IPID, DLDL, TSH, RENAL #### [facility] [address] [place] [address] Dr. Fátima Keller Urea nitrogen [Mass/Vol] 22.0 mg/dL Critically high 7.0-18.0 [facility] Comment on above: Performed By: #### L IPID, DLDL, TSH, RENAL #### [facility] [address] [place] [address] Dr. Fátima Keller TSHon 10-01-2022 TSH 1.680 uIU/mL Normal 0.358-3.740 [facility] Comment on above: Performed By: #### L IPID, DLDL, TSH, RENAL #### [facility] [address] [place] [address] Dr. Fátima Keller VITAMIN D 25 [place]on 10-01-2022 VIT D 25-OH 8.3 ng/mL Normal [facility] Comment on above: Performed By: #### V ITAD #### [facility] [address] [address] [address] Fátima Keller VIT D RANGES SEE BELOW Normal [facility] Comment on above: Result Comment: <20 ng/mL Vit D deficient 20 - <30 ng/mL Vit D insufficient 30 - 100 ng/mL Vit D sufficient >100 ng/mL Potential Toxicity Performed By: #### V ITAD #### [facility] [address] [place] [address] Dr. Fátima Keller Vital Signs Date Time Vital Sign Value Performing Clinician Faci lity 12-16-2023 12:20-0400 Body height 185.42 cm [facility] 12-16-2023 12:20-0400 Body mass index (BMI) [Ratio] 26.4 kg/m2 [facility] 12-16-2023 12:20-0400 Body temperature 98.3 [degF] [facility] 12-16-2023 12:20-0400 Body weight 90.71 kg [facility] 12-16-2023 12:20-0400 Heart rate 71 /min [facility] 12-16-2023 12:20-0400 Respiratory rate 18 /min [facility] 12-16-2023 12:20-0400 SaO2% (BldA) [Mass fraction] 99 % [facility] Encounters Encounter Date Encounter Type Care Provider Facility Start: 12-16-2023 End: 12-16-2023 ambulatory [facility] Work Phone: Start: 12-16-2023 End: 12-16-2023 Patient encounter procedure Count Includes [facility] Work Phone: Start: 10-01-2022 End: 10-02-[address] GILES RUIZ Facility:H1 Payers Date Payer Category Payer Unknown [id number] 1957 Unknown [id number] Medicaid [facility] Medicaid [id number] Social History Date Type Detail Facility Start: 12-16-2023 Tobacco smoking stat us NHIS Ex-smoker (finding) [facility] Start: 1985 Sex Assigned At Male [facility] Evaluation note Note Date & Type Note Facility Evaluation note No assessment information availa ble [facility] Work Phone: Summary Purpose Family History Relationship [...] content) DATE CREATED AUTHOR 11/13/2022 [facility] Care Teams (unrecognized sec tion and [...] BE BASED ON THE PRIMARY CLINICAL RECORDS. [employer] provides no warranty or guarantee of the accuracy or completeness of information in this document.
== END 2024-03-09 08:20 | disposition home or self-care (01) ==
LOC: LAB 03-10 08:19
PROVIDERS: Visit Provider Internal Medicine
DX: E11.65 Type 2 diabetes mellitus with hyperglycemia (principal); Z71.3 Dietary counseling and surveillance; E55.9 Vitamin D deficiency, unspecified
CPT/HCPCS: 36415; 80061; 80069; 82043; 82306; 82570

== ENCOUNTER 2024-12-15 07:05 | Outpatient (OUT) | payer OTHER, SELFPAY ==
--- OUTSIDE RECORDS SUMMARY | 2024-12-15 07:11 | XMS_ITS | CCD ---
Author Organization [facility] CliniSyde Care Team Providers Care Entry Tech Name Role Phone DR SOHAIL RUIZ Primary Care Unavailable ELIANA CASTILLO Attending Unavailable ELIANA CASTILLO Consulting Unavailable ELIANA CASTILLO Admitting Unavailable Sohail Ruiz MD Primary Care Provider Jose F GUEVARA, Nicolasa Be Unavailable ELIANA CASTILLO Attending Unavailable ELIANA CASTILLO Referring Unavailable Allergies Allergy Classification Reported Allergen(s) Allergy Type Date of Onset Reaction(s) Facility (1 source) Chlorhexidine Drug Allergy [facility] (1 source) Methocarbamol Drug Allergy [facility] (1 source) Chlorhexidine Drug Allergy 12-16-2023 Rash [facility] (4 sources) Methocarbamol Drug Allergy 12-16-2023 [facility] Medications Current Medications Medication Drug Class(es) Dates Sig (Normalized) Sig (Original) [id number] 200 actuat albuterol 0.09 mg/actuat metered dose inhaler (1 source) beta2-Adrenergic Agonist Start: 12-16-2023 take 1 puff(s) by inhalation four times daily Albuterol Sulfate Active 2 PUFF INHALATION Four times daily 8.5 December 16, 2023 12:00am atenolol 50 mg oral tablet (4 sources) beta-Adrenergic Kina Start: 08-11-2024 take 1 tablet by mouth once daily atenolol (Tenormin) 50 MG tablet Take 50 mg by mouth Daily 08/11/2024 Active Start: 12-16-2023 take 50 mg by mouth once daily Atenolol Active 50 MG PO Daily December 16, 2023 12:00am atorvastatin 20 mg oral tablet (3 sources) HMG-CoA Reductase Inhibitor Start: 08-31-2024 take 1 tablet by mouth once daily atorvastatin (Lipitor) 20 MG tablet Indications: Mixed hyperlipidemia (CMS/HCC) Take 1 tablet by mouth once daily 90 tablet 1 08/31/2024 Active azithromycin 250 mg oral tablet (1 source) Macrolide Antimicrobial Start: 12-16-2023 take 2 tablets by mouth once daily, then take 1 tablet by mouth once daily Azithromycin (Zithromax Z-Hosea) 250 mg tablet Active 250 MG PO Daily 6 5 December 16, 2023 12:00am take 2 tabs today and 1 daily for the next 4 days Continuous Glucose Sensor (FreeStyle Derrick 2 Sensor) [facility] (4 sources) Start: 07-24-2024 Continuous Glucose Sensor (FreeStyle Derrick 2 Sensor) [facility] [place] Indications: Type 2 diabetes mellitus with hyperglycemia, with long-term current use of insulin (CMS/[facility]) APPLY 1 SENSOR AND CHANGE EVERY 14 DAYS. 6 each 07/24/2024 Active 0.5 ml dulaglutide 3 mg/ml auto-injector (7 sources) GLP-1 Receptor Agonist Start: 06-10-2024 End: 09-02-2024 inject 1.5 mg by subcutaneous injection every week dulaglutide (Trulicity) 1.5 MG/0.5ML solution pen-injector Indications: Type 2 diabetes mellitus with hyperglycemia, unspecified whether jail insulin use (CMS/[facility]) Inject 1.5 mg under the skin 1 (one) time per week 2 mL 2 06/10/2024 Active Start: 12-16-2023 Dulaglutide (T rulicity) 1.5 mg/0.5 mL pen injector Active MG SUBCUT December 16, 2023 12:00am empagliflozin 10 mg oral tablet (4 sources) Sodium-Glucose Cotransporter 2 Inhibitor Start: 08-17-2024 take 1 tablet by mouth once daily Jardiance 10 MG Indications: Type 2 diabetes mellitus with hyperglycemia, with long-term current use of insulin (CMS/[facility]) Take 1 tablet by mouth once daily 90 tablet 08/17/2024 Active Start: 12-16-2023 take 1 tablet by malorie th once daily Empagliflozin (Jardiance) 10 mg tablet Active 10 MG PO Daily December 16, 2023 12:00am ergocalciferol 1.25 mg oral capsule (5 sources) Provitamin D2 Compound Start: 07-04-2024 End: 10-02-2024 ergocalciferol (Vitamin D2) 1.25 MG (96158 UT) capsule Indications: Vitamin D deficiency Take 1 capsule (1.25 mg) by mouth every 7 (seven) days 12 capsule 1 07/04/2024 10/02/2024 Active glimepiride 4 mg oral tablet (7 sources) Sulfonylurea Start: 06-10-2024 take 1 tablet by mouth in the morning glimepiride (Amaryl) 4 MG tablet Indications: Type 2 diabetes mellitus with hyperglycemia, unspecified whether jail insulin use (CMS/HCC) Take 1 tablet (4 mg) by mouth in the morning and 1 tablet (4 mg) in the evening. Take with meals. 180 tablet 06/10/2024 Active Start: 12-16-2023 take 4 mg by mouth twice daily Glimepiride Active 4 MG PO Twice daily December 16, 2023 12:00am Insulin Detemir U-100 (Levemir Flexpen) 100 unit/mL (3 mL) insulin pen (1 source) Start: 12-16-2023 Insulin Detemi r U-100 (Levemir Flexpen) 100 unit/mL (3 mL) insulin pen Active UNIT SUBCUT December 16, 2023 12:00am insulin glargine-yfgn (Semglee, yfgn,) 100 UNIT/ML pen (6 sources) Start: 07-02-2024 End: 09-30-2024 insulin glargine-yfgn (Semglee, yfgn,) 100 UNIT/ML pen Indications: Type 2 diabetes mellitus with hyperglycemia, with long-term current use of insulin (CMS/[facility]) Inject 40 Units under the skin at bedtime 9 mL 3 07/02/2024 09/30/2024 Active meloxicam 15 mg oral tablet (3 sources) Nonsteroidal Anti-inflammatory Drug Start: 08-11-2024 take 1 tablet by mouth once daily meloxicam (Mobic) 15 MG tablet Take 1 tablet by mouth Daily 08/11/2024 Active Problems Problem Classification Problem Date Documented Da te Episodic/Chronic Administrative/social admission (2 sources) Patient encounter status; Translations: [Dietary counseling and surveillance] 09-03-2024 Episodic Diabetes mellitus with complications (8 sources) Type 2 diabetes mellitus with hyperglycemia; Translations: [Hyperglycemia due to type 2 diabetes mellitus] Onset: 10-01-2022 Chronic Disorders of lipid metabolism (2 sources) Mixed hyperlipidemia; Translations: [Mixed hyperlipidemia] 09-03-2024 Chronic Essential hypertension (1 source) Essential (primary) hypertension; Translations: [ESSENTIAL PRIMARY HYPERTENSION] Onset: 11-05-2022 Chronic Nutritional deficiencies (4 sources) Vitamin D deficiency, unspecified; Translations: [Vitamin D deficiency] Onset: 11-05-2022 07-04-2024 Chronic Other aftercare (2 sources) Long-term current use of insulin; Translations: [bed bug exterminator (current) use of insulin] 09-03-2024 Episodic Other nutritional; endocrine; and metabolic disorders (2 sources) Severe obesity; Translations: [Class 3 severe obesity due to excess calories with serious comorbidity and body mass index (BMI) of 40.0 to 44.9 in adult ([facility])] 09-03-2024 Chronic Results Test Name Value Interpretation Reference Range Facility Glucose (Bld) [Mass/Vol]on 1 11-04-2023 Glucose Blood, POC 128 mg/dL [facility] Interpretation and review of laboratory results Normal [facility] HbA1c (Bld) [Mass fraction]o n 09-03-2024 Interpretation and review of laboratory results Abnormal [facility] Laboratory - Hematology and Cell countson 09-03-2024 HbA1c (Bld) [Mass fraction] 7.4 % [facility] No Panel Informationon 09-03 [facility] C-PEPTIDE, SERUMon 3 C-Peptide, Serum 3.6 ng/mL Normal 1.1-4.4 [facility] Comment on above: Result Comment: C-Pe ptide reference interval is for fasting patients. Performed By: #### C PEPT #### [facility] [address], [place] [address] Dr. Fátima Keller DIRECT LDLon 10-01-2022 Cholesterol in LDL [Mass/Vol] 98 mg/dL Normal [facility] Comment on above: Performed By: #### L IPID, DLDL, TSH, RENAL #### [facility] [address], [place] [address] Dr. Fátima Keller DLDL NORMAL SEE BELOW Normal [facility] Comment on above: Result Comment: <100 mg/dl OPTIMAL 100 - 129 mg/dl NEAR OR ABOVE OPTIMAL 130 - 159 mg/dl BORDERLINE HIGH 160 - 189 mg/dl HIGH >190 mg/dl VERY HIGH Performed By: #### L IPID, DLDL, TSH, RENAL #### [facility] [address] [place] [address] Dr. Fátima Keller LIPID PROFILEon 10-01-2022 CHOL-HDL RATIO NORM SEE BELOW Normal [facility] Comment on above: Result Comment: 3.3 - 4.4 LOW RISK 4.4 - 7.1 AVERAGE RISK 7.1 - 11.0 MODERATE RISK >11.0 HIGH RISK Performed By: #### L IPID, DLDL, TSH, RENAL #### [facility] [address] [address] [address] Fátima Keller Cholesterol [Mass/Vol] 320 mg/dL Critically high <=[address] [facility] Comment on above: Performed By: #### L IPID, DLDL, TSH, RENAL #### [facility] [address] [address] [address] Fátima Keller Cholesterol in HDL [Mass/Vol] 38 mg/dL Critically low 40-[address] [facility] Comment on above: Performed By: #### L IPID, DLDL, TSH, RENAL #### [facility] [address] [address] [address] Fátima Keller Cholesterol in LDL [Mass/Vol] 51.8 mg/dL Normal [facility] Comment on above: Performed By: #### L IPID, DLDL, TSH, RENAL #### [facility] [address] [address] [address] Fátima Keller Cholesterol.total/C holesterol in HDL [Mass ratio] 8.4 {ratio} Normal [facility] Comment on above: Performed By: #### L IPID, DLDL, TSH, RENAL #### [facility] [address] [place] [address] Dr. Fátima Keller HDL NORMAL > or = 60 mg/dl - LO W CARDIOVASCULAR RISK <40 mg/dl - HIGH CARDIOVASCULAR RISK Normal [facility] Comment on above: Performed By: #### L IPID, DLDL, TSH, RENAL #### [facility] [address] [address] [address] Fátima Keller LDL CALC NORMAL SEE BELOW Normal [facility] Comment on above: Result Comment: <100 mg/dl OPTIMAL 100 - 129 mg/dl NEAR OR ABOVE OPTIMAL 130 - 159 mg/dl BORDERLINE HIGH 160 - 189 mg/dl HIGH >190 mg/dl VERY HIGH Performed By: #### L IPID, DLDL, TSH, RENAL #### [facility] [address] [address] [address] Fátima Keller Triglyceride [Mass/Vol] 1151 mg/dL Critically high <=[address] [facility] Comment on above: Performed By: #### L IPID, DLDL, TSH, RENAL #### [facility] [address] [address] [address] Fátima Keller VLDL CALC 230.2 mg/dL Normal [facility] Comment on above: Performed By: #### L IPID, DLDL, TSH, RENAL #### [facility] [address] [address] [address] Fátima Keller MICROALB CREAT RATIO RANDOMo n 10-01-2022 mALB 32.2 mg/L Critically high <=30.0 [facility] Comment on above: Performed By: #### M CRR #### [facility] [address] [address] [address] Fátima Keller MALB CR RATIO 794.5 mg/g Critically high 0.0-29.9 [facility] Comment on above: Performed By: #### M CRR #### [facility] [address] [place] [address] Dr. Fátima Keller MALB CR RATIO RANGE SEE BELOW Normal [facility] Comment on above: Result Comment: NO M ICROALBUMINURIA 0-29 MG/G CLINICAL MICROALBUMINURIA 30-300 MG/G MACROALBUMINURIA >300 MG/G Performed By: #### M CRR #### [facility] [address] [place] [address] Dr. Fátima Keller URINE CREAT 40.53 mg/dL Normal 20.00-300.00 [facility] Comment on above: Performed By: #### M CRR #### [facility] [address] [address] [address] Fátima Keller RENAL FUNCTION PANELon 10-01 Albumin [Mass/Vol] 3.2 g/dL Critically low 3.4-5.0 Th e [facility] Comment on above: Performed By: #### L IPID, DLDL, TSH, RENAL #### [facility] [address] [address] [address] Fátima Keller Calcium [Mass/Vol] 9.5 mg/dL Normal 8.5-10.1 [place] Comment on above: Performed By: #### L IPID, DLDL, TSH, RENAL #### [facility] [address] [place] [address] Dr. Fátima Keller Chloride [Moles/Vol] 99 mmol/L Normal 98-[address] [facility] Comment on above: Performed By: #### L IPID, DLDL, TSH, RENAL #### [facility] [address] [address] [address] Fátima Keller CO2 [Moles/Vol] 24.6 mmol/L Normal 21.0-32.0 [facility] Comment on above: Performed By: #### L IPID, DLDL, TSH, RENAL #### [facility] [address] [place] [address] Dr. Fátima Keller Creatinine [Mass/Vol] 0.86 mg/dL Normal 0.70-1.[address] [facility] Comment on above: Performed By: #### L IPID, DLDL, TSH, RENAL #### [facility] [address] [place] [address] Dr. Fátima Keller EGFR-AF GAMBIAN >60 Normal >=60 [facility] Comment on above: Performed By: #### L IPID, DLDL, TSH, RENAL #### [facility] [address] [address] [address] Fátima Keller EGFR-NON AF GAMBIAN >60 Normal >=60 [facility] Comment on above: Performed By: #### L IPID, DLDL, TSH, RENAL #### [facility] [address] [place] [address] Dr. Fátima Keller Glucose [Mass/Vol] 222 mg/dL Critically high 74-106 [facility] Comment on above: Performed By: #### L IPID, DLDL, TSH, RENAL #### [facility] [address] [place] [address] Dr. Fátima Keller Phosphate [Mass/Vol] 4.2 mg/dL Normal 2.6-4.[address] [facility] Comment on above: Performed By: #### L IPID, DLDL, TSH, RENAL #### [facility] [address] [place] [address] Dr. Fátima Keller Potassium [Moles/Vol] 4.0 mmol/L Normal 3.5-5.[address] [facility] Comment on above: Performed By: #### L IPID, DLDL, TSH, RENAL #### [facility] [address] [place] [address] Dr. Fátima Keller Sodium [Moles/Vol] 135 mmol/L Critically low 136-145 [facility] Comment on above: Performed By: #### L IPID, DLDL, TSH, RENAL #### [facility] [address] [place] [address] Dr. Fátima Keller Urea nitrogen [Mass/Vol] 22.0 mg/dL Critically high 7.0-18.[address] [facility] Comment on above: Performed By: #### L IPID, DLDL, TSH, RENAL #### [facility] [address] [place] [address] Dr. Fátima Keller TSHon 10-01-2022 TSH 1.680 uIU/mL Normal 0.358-3.740 [facility] Comment on above: Performed By: #### L IPID, DLDL, TSH, RENAL #### [facility] [address] [place] [address] Dr. Fátima Keller VITAMIN D 25 OHon 10-01-2022 VIT D 25-OH 8.3 ng/mL Normal [facility] Comment on above: Performed By: #### V ITAD #### [facility] [address] [address] [address] Fátima Keller VIT D RANGES SEE BELOW Normal [facility] Comment on above: Result Comment: <20 ng/mL Vit D deficient 20 - <30 ng/mL Vit D insufficient 30 - 100 ng/mL Vit D sufficient >100 ng/mL Potential Toxicity Performed By: #### V ITAD #### [facility] [address] [address] [address] Fátima Keller Vital Signs Date Time Vital Sign Value Performing Clinician Facility 09-03-2024 09:09-0500 Body height 185.4 cm Eliana Castillo MD Work Phone: [facility] 09-03-2024 09:09-0500 Body mass index (BMI) [Ratio] 42.22 kg/m2 Eliana Castillo MD Work Phone: [facility] 09-03-2024 09:09-0500 Body weight 145.15 kg Eliana Castillo MD Work Phone: [facility] 09-03-2024 09:09-0500 Diastolic blood pressure 90 mm[Hg] Eliana Castillo MD Work Phone: [facility] 09-03-2024 09:09-0500 Heart rate 72 /min Eliana Castillo MD Work Phone: [facility] Comment on above: O2 SAT 97% 09-03-2024 09:09-0500 Respiratory rate 18 /min Eliana Castillo MD Work Phone: [facility] 09-03-2024 09:09-0500 Systolic blood pressure 146 mm[Hg] Eliana Castillo MD Work Phone: [facility] 12-16-2023 12:20-0400 Body height 185.42 cm [facility] 12-16-2023 12:20-0400 Body mass index (BMI) [Ratio] 26.4 kg/m2 [facility] 12-16-2023 12:20-0400 Body temperature 98.3 [degF] [facility] 12-16-2023 12:20-0400 Body weight 90.71 kg [facility] 12-16-2023 12:20-0400 Heart rate 71 /min [facility] 12-16-2023 12:20-0400 Respiratory rate 18 /min [facility] 12-16-2023 12:20-0400 SaO2% (BldA) [Mass fraction] 99 % [facility] Encounters Encounter Date Encounter Type Care Provider Facility Start: 09-03-2024 End: 09-03-2024 Bamboo flowsheet Eliana Castillo MD Work Phone: [facility] Start: 09-03-2024 End: 09-03-2024 Bamboo flowsheet Eliana Castillo MD Work Phone: [facility] Start: 09-03-2024 End: 09-03-2024 Office outpatient visit 25 minutes Eliana Castillo MD Work Phone: [facility] Comment on above: Type 2 diabetes sulma itus with hyperglycemia, with long-term current use of insulin ([facility]) (Primary Dx); Vitamin D deficiency; Insulin long-term use ([facility]); Hyperlipemia, mixed ([facility]); Encounter for dietary consultation; Class 3 severe obesity due to excess calories with serious comorbidity and body mass index (BMI) of 40.0 to 44.9 in adult ([facility]/HCC) Start: 09-03-2024 End: 09-03-2024 ambulatory ELIANA CASTILLO Not Available Start: 07-22-2024 End: 07-25-2024 Refill Eliana Castillo MD Work Phone: [facility] Comment on above: Type 2 diabetes sulma itus with hyperglycemia, with long-term current use of insulin ([facility]/HCC) Start: 07-04-2024 End: 07-04-2024 Refill Eliana Castillo MD Work Phone: [facility] Comment on above: Vitamin D deficiency (Primary Dx) Start: 07-02-2024 End: 07-02-2024 Telephone encounter Eliana Castillo MD Work Phone: [facility] Start: 12-16-2023 End: 12-16-2023 ambulatory [facility] Work Phone: Start: 12-16-2023 End: 12-16-2023 Patient encounter procedure [facility] E Work Phone: Start: 10-01-2022 End: 10-02-[address] SOHAIL RUIZ Facility:H1 Procedures Date Procedure Procedure Detail Performing Clinician Start: 09-03-2024 Gluc bld gluc mntr d ev cleared fda spec home use Eliana Castillo MD Work Phone: Plan of Treatment Date Care Activity Detail Author Start: 12-25-2024 End: 12-25-2024 Patient encounter procedure 12/25/2024 9:10 AM EDT Office Visit [facility] [address] [place] [address] Eliana Castillo MD [address] [place] [address] [facility] Start: 12-02-2024 Hemoglobin A1c measurement Diabetes: Hemoglobin A1C [facility] Start: 09-03-2024 End: 09-03-2025 25-hydroxyvitamin D3 [Mass/volume] in Serum or Plasma Vitamin D 25 hydroxy Total Lab Routine Type 2 diabetes mellitus with hyperglycemia, with long-term current use of insulin ([facility]) Expected: 09/03/2024 (Approximate), Expires: 09/03/2025 [facility] Comment on above: Expected: 09/03/2024 (Approximate), Expires: 09/03/2025 Start: 09-03-2024 End: 09-03-2025 C-peptide C-peptide Lab Routine Type 2 diabetes mellitus with hyperglycemia, with long-term current use of insulin ([facility]) Expected: 09/03/2024 (Approximate), Expires: 09/03/2025 [facility] Work Phone: Comment on above: Expected: 09/03/2024 (Approximate), Expires: 09/03/2025 Start: 09-03-2024 End: 09-03-2025 Lipid 1996 panel - Serum or Plasma Lipid panel Lab Routine Type 2 diabetes mellitus with hyperglycemia, with long-term current use of insulin ([facility]) Expected: 09/03/2024 (Approximate), Expires: 09/03/2025 [facility] Comment on above: Expected: 09/03/2024 (Approximate), Expires: 09/03/2025 Start: 09-03-2024 End: 09-03-2025 Microalbumin/Creatini ne panel in random Urine Microalbumin / creatinine urine ratio Lab Routine Type 2 diabetes mellitus with hyperglycemia, with long-term current use of insulin ([facility]) Expected: 09/03/2024 (Approximate), Expires: 09/03/2025 [facility] Comment on above: Expected: 09/03/2024 (Approximate), Expires: 09/03/2025 Start: 09-03-2024 End: 09-03-2025 Renal function panel Renal function panel Lab Routine Type 2 diabetes mellitus with hyperglycemia, with long-term current use of insulin ([facility]) Expected: 09/03/2024 (Approximate), Expires: 09/03/2025 [facility] Comment on above: Expected: 09/03/2024 (Approximate), Expires: 09/03/2025 Start: 09-03-2024 End: 09-03-2024 Patient encounter procedure [facility] Comment on above: Arrived Start: 05-17-2024 Influenza vaccination Influenza Vacc ine (#1) [facility] Start: 02-02-2018 Hemoglobin A1c measurement Diabetes: Hemoglobin A1C [facility] Start: 2006 Urine screening for protein Diabetes: Urine Protein Screening [facility] Start: 1997 Glaucoma screening Diabetes: R etinopathy Screening [facility] Immunizations Immunization Date Immunization Notes Care Provider Danis duarte 11-26-2017 influenza virus vacc ine, unspecified formulation Eliana Castillo MD Work Phone: [facility] Payers Date Payer Category Payer Private Health Insurance MARTINA gallardo [id number] 2023 Private Health Insurance [id number] 2022 [facility] Mem er [id number] 1987 Unknown [id number] 1987 Unknown [id number] 1959 Unknown [id number] Medicaid Anthem [place] Medicaid [id number] Social History Date Type Detail Facility Start: 12-16-2023 End: 08-18-2024 Tobacco smoking status [place] Ex-smoker (finding) [facility] Start: 1985 Sex Assigned At Male [facility] Tobacco smoking status [facility] Tobacco smoking consumption unknown [facility] Start: 1987 Sex assigned at Not on file [facility] Start: 08-18-2024 End: 09-03-2024 Gender identity Not on file [facility] History of tobacco use Current smoker [facility] History of tobacco use Cigarette Smoker [facility] Start: 08-18-2024 End: 09-03-2024 History of Social function [facility] Healthcare Medical Equipment Procedure Code Equipment Code Equipment Original Text Equi pment Identifier Dates Inject 1 each un mynor the skin Daily Use as instructed Clinical Notes 07-02-2024 to 09-03-2024 Eliana Castillo MD - 09/03/2024 9:10 AM ESTTelephone Encounter - Nallelyandrew Floyd LPN - 07/24/2024 1:03 PM ESTTelephone Encounter - Nallely Floyd LPN - 07/24/2024 1:03 PM EST Note Date & Type Note Facility 09-03-2024 History of Presen t illness Narrative Isaac Kim is a 39 y.o. male Eliana Castillo MD presents with chief complaint of Diabetes HPI: Interim History: 08/2024 Follow-up office visit 09/03/2024. A1C in the office 7.4; blood sugar 128, He is on Trulicity 1.5, Levemir 45 units and glimepiride 4 mg twice a day, Jardiance 10. Interim History: 02/2024 Follow-up office visit 03/12/2024. A1C in the office 6.4; blood sugar 110. He is on Trulicity 1.5, Levemir 45 units and glimepiride 4 mg twice a day, Jardiance 10. CGM 71 in good range, 29 in high range, average 159. lab on 02/2024 vit d 23, TC 213, HDL 37, LDL 125, AL/CR 254. Interim History: 11/2023 Follow-up office visit 11/15/2023. A1C in the office 6.7; blood sugar 129. He is on Trulicity 1.5, Levemir 45 units and glimepiride 4 mg twice a day, Jardiance 10. CGM 73 in good range, 27 in high range, average 162. Interim History: 07/2023 Follow-up office visit 08/02/2023. A1C in the office 6.4; blood sugar 126. He is on Trulicity 1.5, Levemir 45 units and glimepiride 4 mg twice a day, Jardiance 10. CGM 77 in good range, 23 in high range, average 154. Interim History: 03/2023 Follow-up office visit 03/29/2023. A1C in the office 6.9; blood sugar 129. He is on Trulicity 1.5, Levemir 45 units and glimepiride 4 mg twice a day, Jardiance 10. CGM 78 in good range, 22 in high range, average 149. LAB ON 03/2023 vit d 17, TC 207, TG 286, HDL 34, LDL 116, AL/CR 43. Interim History: 11/2022 Follow-up office visit 11/23/2022. A1C in the office 6.8; blood sugar 216. He is on Trulicity 1.5, Levemir 40 units and glimepiride 4 mg twice a day, Jardiance 10. CGM 86 in good range, 14 in high range, average 146. Labs done after we met last time in September 2022: GFR > 60; total cholesterol 320; HDL 38; triglycerides 1151; albumin/creatinine 794.5; vitamin D 8.3. HPI: 09/2022 New patient sent from Dr. Sohail Ruiz for diabetes, uncontrolled, A1c 12.9 our office, blood sugar 393. He is on Jardiance 10, glimepiride 4 twice a day, miss sometimes, Januvia 100; metformin long time ago, cause him kidney dysfunction and not able to take it; and he denies any other complication from diabetes. Only other medication is atenolol. SUBJECTIVE: MEDICATIONS: Current Outpatient Medications Medication Instructions atenolol (TENORMIN) 50 mg, Daily atorvastatin (LIPITOR) 20 mg, Oral, Daily Continuous Glucose Sensor (FreeStyle Derrick 2 Sensor) misc APPLY 1 SENSOR AND CHANGE EVERY 14 DAYS. ergocalciferol (VITAMIN D2) 1.25 mg, Oral, Every 7 days glimepiride (AMARYL) 4 mg, Oral, 2 times daily with meals insulin glargine-yfgn (SEMGLEE (YFGN)) 40 Units, Subcutaneous, Nightly insulin pen needle (BD Pen Needle Joanne 2nd Gen) 32G x 4 mm misc 1 each, Daily insulin pen needle 31G X 8 mm misc 1 each, Daily Jardiance 10 mg, Oral, Daily meloxicam (Mobic) 15 MG tablet 1 tablet, Daily Trulicity 1.5 mg, Subcutaneous, Weekly ALLERGIES: Allergies Allergen Reactions Robaxin [Methocarbamol] Unknown Past Medical History: Diagnosis Date Dietary counseling and surveillance Essential (primary) hypertension (CMS/HCC) Microalbuminuria Mixed hyperlipidemia (CMS/HCC) Obesity with body mass index (BMI) of 30.0 to 39.9 Type 2 diabetes mellitus with hyperglycemia (CMS/HCC) Vitamin D deficiency Past Surgical History: Procedure Laterality Date APPENDECTOMY IR CHEST DRAIN PLACEMENT 11/05/2017 IR CHEST DRAIN PLACEMENT 11/05/2017 SKIN GRAFT THORACENTESIS Left left lung fluid removal REVIEW OF SYMPTOMS: 14 POINT OF SYSTEM REVIEWED AND NEGATIVE OBJECTIVE: Constitutional: Afebrile @ home; no weakness or night sweats SKIN: No change in skin color; no itching, rash or lesions; no hair loss; HEENT: No HAs or injury; no dizziness; No difficulty with vision; no eye pain, discharge or lesions; no hearing loss or difficulty; no nasal discharge, NECK: No pain, limitation of motion, lumps or swollen glands RESP: No cough, wheezing or difficulty breathing. No CP with breathing; CARDIO: No CP , SOB or fatigue, No edema, palpitations or dyspnea with exertion GI: No N/V/D or abd. pain; good appetite with no recent change. No heart burn, liver or gallbladder disease; no rectal bleeding or pain : No urinary pain , frequency or odor. MUSCULOSKELETAL: No muscle pain or cramps; no extremity weakness.No joint pain, stiffness, swelling or limitation of movement NEUROLOGY: No H/O seizures, stroke or fainting. No weakness, tremors. Hematology: No bleeding problems or excessive bruising ENDOCRINE: No increase in hunger, thirst or urination; admits compliance to medical management plan Feet: numbness tingling yes , ulcers or skin break no Lab Results Component Value Date HGBA1C 7.4 09/03/2024 Lab Results Component Value Date GLU 128 09/03/2024 GLU 151 (H) 12/30/2017 GLU 200 (H) 12/17/2017 Visit Vitals BP 146/90 Pulse 72 Comment: O2 SAT 97% Resp 18 Ht 6' 1 Wt 320 lb BMI 42.22 kg/m Smoking Status Former BSA 2.73 m ASSESSMENT AND PLAN: Assessment/Plan Diagnoses and all orders for this visit: Type 2 diabetes mellitus with hyperglycemia, with long-term current use of insulin ([facility]) - POCT glycosylated hemoglobin (Hb A1C) docked device - POCT glucose manually resulted - C-peptide; Future - Vitamin D 25 hydroxy Total; Future - Microalbumin / creatinine urine ratio; Future - Lipid panel; Future - Renal function panel; Future C/o Jardiance 10 mg once a day, glimepiride 4 mg twice a day, Levemir 45 units, Trulicity 1.5. Vitamin D deficiency Insulin long-term use ([facility]) Hyperlipemia, mixed ([facility]) Encounter for dietary consultation Diet and exercise reviewed with the patient Class 3 severe obesity due to excess calories with serious comorbidity and body mass index (BMI) of 40.0 to 44.9 in adult ([facility]) Follow up in about 4 months (around 01/02/2025). documented in this encounter [facility] 07-24-2024 Telephone encounter Note HE WILL NEED TO CONTACT WHO EVER TOOK OVER FOR DR. RUIZ THANKS [facility] 07-24-2024 Miscellaneous Notes HE WILL NEED TO CONTACT WHO EVER TOOK OVER FOR DR. RUIZ THANKS Atenolol 50 MG Oral Tablet needs refill to [facility] [place]. Dr Ruiz used to send but is no longer at same practice. Thank you! documented in this encounter [facility] 07-22-2024 Telephone encounter Note Atenolol 50 MG Oral Tablet needs refill to [facility] [place]. Dr Ruiz used to send but is no longer at same practice. Thank you! [facility] 07-02-2024 Telephone encounter Note MEDICATION SENT TO PHARMACY. PT WAS CHANGED TO SEEM[facility] THAT IS WHAT'S ON HIS FORMULARY. THANKS [facility] 07-02-2024 Miscellaneous Notes MEDICATION SENT TO PHARMACY. PT WAS CHANGED TO [facility] THAT IS WHAT'S ON HIS FORMULARY. THANKS Pt needs insulin refills to [facility] please and thank you! MALINA he's using his last units of insulin now. documented in this encounter [facility] 07-02-2024 Telephone encounter Note Pt needs insulin refills to [facility] please and thank you! MALINA he's using his last units of insulin now. [facility] Evaluation note No assessment inform ation available [facility] Work Phone: Evaluation note Diagnosis Type 2 diabetes mellitus with hyperglycemia, with long-term current use of insulin ([facility]) documented in this encounter [facility] HealthcareEvaluation note* Diagnosis Vitamin D deficiency- Primary documented in this encounter [facility] HealthcareEvaluation note* Diagnosis Type 2 diabetes mellitus with hyperglycemia, with long-term current use of insulin ([facility]) documented in this encounter [facility] HealthcareEvaluation note* Diagnosis Type 2 diabetes mellitus with hyperglycemia, with long-term current use of insulin ([facility])- Primary Vitamin D deficiency Insulin long-term use ([facility]) Encounter for long-term (current) use of insulin Hyperlipemia, mixed ([facility]) Mixed hyperlipidemia Encounter for dietary consultation Class 3 severe obesity due to excess calories with serious comorbidity and body mass index (BMI) of 40.0 to 44.9 in adult ([facility]) documented in this encounter [facility] Healthcare Summary Purpose Family History No Family History Records Found Relationship Condition Age at Onset Recorded Date/T richard Not Specified Diabetes mellitus Unknown Heart disease Unknown father Malignant neoplasm Unknown Advance Directives No Advanced Directives Records Found Advance Directive Response Recorded Date/ Time Advance Directives No December 15 12:15pm Chief Complaint and Reason for Visit Chief Complaint Cough, Congestion Additional Source Comments (unrecognized sect ion and content) No Status Records FoundNo Status Records Found INFORMATION SOURCE (unrecogn ized section and content) DATE CREATED AUTHOR 11/13/2022 [facility] DATE CREATED AUTHOR AUTHOR'S ORGANIZ ATION 09/06/2024 [facility] Care Teams (unrecognized sec tion and content) Team Status: Active Member Role Status Dates NON STAFF Primary Care Provider Active Team Status: Inactive Member Role Status Dates NON STAFF Primary Care Provider Active Start: December 16, 2023 End: December 16, 2023 Diane Nickerson NP-C Attending Provider Active S tart: December 16, 2023 End: December 16, 2023 Entry Tech Relationship Specialty Start Date End Date Sohail Ruiz MD [address] [place] [address] PCP - General Family Medicine 05/15/24 Entry Tech Relationship Specialty Start Date End Date Sohail Ruiz MD [address] [place] [address] PCP - General Family Medicine 05/15/24 Entry Tech Relationship Specialty Start Date End Date Sohail Ruiz MD [address] [place] [address] PCP - General Family Medicine 05/15/24 Entry Tech Relationship Specialty Start Date End Date Sohail Ruiz MD [address] [place] [address] PCP - General Family Medicine 05/15/24 Nicolasa Kohler NP [address] [place] [address] PCP - [facility] 03/16/24 Entry Tech Relationship Specialty Start Date End Date Sohail Ruiz MD [address] [place] [address] PCP - General Family Medicine 05/15/24 Nicolasa Kohler NP [address] [place] [address] PCP - [facility] 03/16/24 Goals (unrecognized section and content) Goals may be documented in a n alternate section Reason for Visit (unrecogniz ed section and content) Reason Comments Med Refill Reason Comments Diabetes FOR RECORDS PERTAINING TO PATIENTS WHO ARE [...] BE BASED ON THE PRIMARY CLINICAL RECORDS. [employer] provides no warranty or guarantee of the accuracy or completeness of information in this document.
[2024-12-15 08:02] LABS: Albumin Level 3.3 g/dL (3.4-5.0); Anion Gap 14.8; BUN Creatinine Ratio 17.4; Chloride 105 mmol/L (98-107); Chol HDL Ratio 5.8; Cholesterol 202 mg/dL (<=200); Estimated GFR (African America >60 (>=60 mL/min/1.73m^2); Estimated GFR (Non-African Ame >60 (>=60 mL/min/1.73m^2); Glucose 135 mg/dL (74-106); HDL Cholesterol 35 mg/dL (40-60); Phosphorus 3.5 mg/dL (2.6-4.7); Potassium 3.8 mmol/L (3.5-5.1); Sodium 141 mmol/L (136-145); Triglycerides 269 mg/dL (<=150); VLDL CHOLESTEROL 53.8 mg/dL
[2024-12-15 09:33] LABS: Creatinine Urine Random 123.89 mg/dL (20.00-300.00)
[2024-12-15 12:53] LABS: Microalbum Creatinine Ratio Ur 583.5 mg/g (0.0-29.9); Microalbumin Urine Random 72.3 mg/dL (<=30.0)
[2024-12-16 04:07] LABS: C-Peptide, Serum 5.3 ng/mL (1.1-4.4)
== END 2024-12-15 07:06 | disposition home or self-care (01) ==
LOC: LAB 07:08
PROVIDERS: Visit Provider Internal Medicine
DX: E11.65 Type 2 diabetes mellitus with hyperglycemia (principal); Z79.4 Long term (current) use of insulin
CPT/HCPCS: 36415; 80061; 80069; 82043; 82306; 82570; 84681